=== PATIENT | male | born 1955 | race Caucasian/White ===

== ENCOUNTER 2018-01-26 03:29 | Inpatient (IN) | payer SELFPAY ==
--- NOTE | 2018-01-26 03:59 | ER Document Report ---
ED General - General Mode of Arrival: Ambulatory Information source: Patient <PATRIC BASHIR - Last Filed: 01/26/18 04:36> <IAN HERZOG - Last Filed: 01/26/18 06:21> - General Chief Complaint: Breathing Difficulty Stated Complaint: DIFFICULTY BREATHING Time Seen by Provider: 01/26/18 03:39 Notes: Patient is a 62 year old male presenting to the emergency department complaining of difficulty breathing worsening the last 3 days. Patient states he has had intermittent difficulty breathing for approximately 1 month but has worsened over the last 3 days. Patient states he can no longer sleep or be supine due to his trouble breathing. Patient denies any chest pain or recent coughs. Patient mentions being unable to walk long distances but contributes this to an episode of complete numbness he had in his left side approximately 1 year ago. He also mentions chronic edema in BLE. Patient states he does not follow up with a doctor and only takes a daily aspirin. (PATRIC BASHIR) - Related Data Allergies/Adverse Reactions: No Known Allergies Allergy (Verified 08/10/11 14:01) Past Medical History - General Information source: Patient - Social History Smoking Status: Never Smoker Cigarette use (# per day): No Chew tobacco use (# tins/day): No Frequency of alcohol use: None - quit in 2007 Family History: Reviewed & Not Pertinent - Immunizations Hx Diphtheria, Pertussis, Tetanus Vaccination: - unknown <KRYSTENPATRIC - Last Filed: 01/26/18 04:36> Review of Systems - Review of Systems Constitutional: No symptoms reported EENT: No symptoms reported Cardiovascular: No symptoms reported Respiratory: See HPI, Short of breath Gastrointestinal: No symptoms reported Genitourinary: No symptoms reported Male Genitourinary: No symptoms reported Musculoskeletal: See HPI Skin: No symptoms reported Hematologic/Lymphatic: No symptoms reported Neurological/Psychological: No symptoms reported -: Yes All other systems reviewed and negative <KRYSTEN,JOHANNEMOHINI - Last Filed: 01/26/18 04:36> Physical Exam - General General appearance: Appears well, Alert, Other - Hypertensive In distress: None - HEENT Head: Normocephalic, Atraumatic Eyes: Normal Conjunctiva: Normal Extraocular movements intact: Yes Pupils: PERRL Mucous membranes: Normal Neck: Normal - Respiratory Respiratory status: No respiratory distress, Tachypnea Chest status: Nontender Breath sounds: Wheezing Chest palpation: Normal - Cardiovascular Rhythm: Regular Heart sounds: Normal auscultation Murmur: No Friction rub: No Gallop: None auscultated - Abdominal Inspection: Normal Distension: No distension Bowel sounds: Normal Tenderness: Nontender Organomegaly: No organomegaly - Back Back: Normal - Extremities General upper extremity: Normal ROM General lower extremity: Normal ROM - Neurological Neuro grossly intact: Yes Cognition: Normal Orientation: AAOx4 Rabia Coma Scale Eye Opening: Spontaneous Rabia Coma Scale Verbal: Oriented [place] Coma Scale Motor: Obeys Commands Rabia Coma Scale Total: 15 Speech: Normal - Psychological Associated symptoms: Normal affect, Normal mood - Skin Skin Temperature: Warm Skin Moisture: Dry Skin Color: Normal <PATRIC BASHIR - Last Filed: 01/26/18 04:36> - Vital signs Vitals: Temp Pulse Resp BP Pulse Ox 97.4 F 102 H 24 H 175/115 H 100 01/26/18 03:35 01/26/18 03:35 01/26/18 03:35 01/26/18 03:35 01/26/18 03:35 Course - Laboratory Result Diagrams: 01/26/18 04:00 01/26/18 04:00 <PATRIC BASHIR - Last Filed: 01/26/18 04:36> - Laboratory Result Diagrams: 01/26/18 04:00 01/26/18 04:00 - Diagnostic Test Radiology reviewed: Reports reviewed - EKG Interpretation by Nd EKG shows normal: Sinus rhythm <IAN HERZOG - Last Filed: 01/26/18 06:21> - Re-evaluation Re-evalutation: 01/26/18 05:19 Patient is a 62-year-old male who comes in with increasing dyspnea with exertion , orthopnea. Patient has not seen a doctor in his adult life. He does not drink or smoke. Blood pressure is elevated. Patient with elevated BNP and given his symptoms, concern for new onset heart failure. CTA was done his d- dimer was elevated. Patient with no evidence for pulmonary embolus which was have mediastinal lymphadenopathy. Given patient's respiratory distress, dyspnea and hypoxia with exertion, he will be admitted to telemetry for further workup of what is likely heart failure, and will require echocardiogram. Patient is agreeable to this plan. Stable time of admission. Lasix has been ordered. (IAN HERZOG) - Vital Signs Vital signs: Temp Pulse Resp BP Pulse Ox 97.4 F 102 H 21 H 176/113 H 99 01/26/18 03:35 01/26/18 03:35 01/26/18 05:00 01/26/18 04:00 01/26/18 05:00 - Laboratory Laboratory results interpreted by me: 01/26/18 01/26/18 01/26/18 04:00 04:00 04:00 RDW 14.3 H D-Dimer 1.21 H Glucose 187 H POC Glucose Hemoglobin A1c % Lactic Acid NT-Pro-B Natriuret Pep LDL Cholesterol Direct Urine Protein Urine Glucose (UA) Urine Ketones 01/26/18 01/26/18 01/26/18 04:00 04:00 04:00 RDW D-Dimer Glucose POC Glucose Hemoglobin A1c % 8.1 H Lactic Acid 2.6 H NT-Pro-B Natriuret Pep 2610 H LDL Cholesterol Direct Urine Protein Urine Glucose (UA) Urine Ketones 01/26/18 01/26/18 01/26/18 04:00 04:36 05:15 RDW D-Dimer Glucose POC Glucose 194 H Hemoglobin A1c % Lactic Acid NT-Pro-B Natriuret Pep LDL Cholesterol Direct 134 H Urine Protein 30 H Urine Glucose (UA) 50 H Urine Ketones TRACE H Discharge <PATRIC BASHIR - Last Filed: 01/26/18 04:36> - Discharge Admitting Provider: [facility] Unit Admitted: Telemetry <IAN HERZOG - Last Filed: 01/26/18 06:21> - Discharge Clinical Impression: Mediastinal lymphadenopathy, Respiratory distress, Possible new onset heart failure Condition: Stable Disposition: ADMITTED INPATIENT Scribe Attestation: 01/26/18 06:20 I personally performed the services described in the documentation, reviewed and edited the documentation which was dictated to the scribe in my presence, and it accurately records my words and actions. (IAN HERZOG) Scribe Documentation - Scribe Written by Scribe:: Jorge Alberto Morel, 01/26/2018 04:08 acting as scribe for :: Sol <PATRIC BASHIR - Last Filed: 01/26/18 04:36>
[2018-01-26 04:13] LABS: VENOUS BLOOD BASE EXCESS -2.6 mmol/L; VENOUS BLOOD HCO3 21.7 mmol/L (20-32); VENOUS BLOOD PCO2 36.2 mmHg (35-63); VENOUS BLOOD PH 7.4 (7.30-7.42)
[2018-01-26 04:17] LABS: ABSOLUTE BASOPHILS # (AUTO) 0.1 10^3/uL (0.0-0.2); ABSOLUTE EOSINOPHILS # (AUTO) 0.1 10^3/uL (0.0-0.6); ABSOLUTE LYMPHOCYTES (AUTO) 2.4 10^3/uL (0.5-4.7); ABSOLUTE MONOCYTES (AUTO) 0.6 10^3/uL (0.1-1.4); ABSOLUTE NEUT (AUTO) 4.9 10^3/uL (1.7-8.2); BASOPHILS % (AUTO) 0.7 % (0-2); EOSINOPHILS % (AUTO) 0.9 % (0-6); HEMATOCRIT 43.2 % (37.9-51.0); HEMOGLOBIN 14.3 g/dL (13.5-17.0); LYMPHOCYTES % (AUTO) 30.2 % (13-45); MEAN CORPUSCULAR HEMOGLOBIN 28.7 pg (27.0-33.4); MEAN CORPUSCULAR HGB CONC 33.1 g/dL (32.0-36.0); MEAN CORPUSCULAR VOLUME 87 fl (80-97); MONOCYTES % (AUTO) 7.2 % (3-13); PLATELET COUNT 174 10^3/uL (150-450); RED BLOOD COUNT 4.98 10^6/uL (4.35-5.55); RED CELL DISTRIBUTION WIDTH 14.3 % (11.5-14.0); TOTAL CELLS COUNTED % (AUTO) 100 %; WHITE BLOOD COUNT 8.1 10^3/uL (4.0-10.5)
[2018-01-26 04:18] LABS: INTERNATIONAL RATION (INR) 1.07; PROTHROMBIN TIME 14.5 SEC (11.4-15.4)
[2018-01-26 04:20] LABS: D-DIMER 1.21 ug/mL (0.00-0.50)
--- NOTE | 2018-01-26 04:22 | RADIOLOGY REPORT (SQ) ---
EXAM DESCRIPTION: XR CHEST 2 VIEWS COMPLETED DATE/TME: 01/26/2018 03:43 CLINICAL HISTORY: 62 years, Male, sob COMPARISON: None. NUMBER OF VIEWS: Two TECHNIQUE: Two views of the chest LIMITATIONS: None. FINDINGS: Lungs are clear. The heart is enlarged. There is no pneumothorax or pleural effusion. There is no acute fracture IMPRESSION: No acute cardiopulmonary abnormality 2010 [email or web address]- All Rights Reserved
[2018-01-26 04:32] LABS: ALANINE AMINOTRANSFERASE 62 U/L (21-72); ALBUMIN 4.1 g/dL (3.5-5.0); ALKALINE PHOSPHATASE 67 U/L (38-126); ANION GAP 14 (5-19); ASPARTATE AMINO TRANSFERASE 56 U/L (17-59); BILIRUBIN,DIRECT 0.4 mg/dL (0.0-0.4); BLOOD UREA NITROGEN 14 mg/dL (7-20); CALCIUM 10.1 mg/dL (8.4-10.2); CARBON DIOXIDE 22 mmol/L (22-30); CHLORIDE 104 mmol/L (98-107); GLUCOSE 187 mg/dL (75-110); POTASSIUM 4.6 mmol/L (3.6-5.0); SODIUM 139.5 mmol/L (137-145); TOTAL PROTEIN 7.2 g/dL (6.3-8.2)
[2018-01-26 04:53] LABS: TROPONIN I 0.061 ng/mL
--- NOTE | 2018-01-26 05:14 | RADIOLOGY REPORT (SQ) ---
EXAM DESCRIPTION: CT CHEST ANGIOGRAPHY WITHOUT THEN WITH IV CONTRAST COMPLETED DATE/TME: 01/26/2018 04:24 CLINICAL HISTORY: 62 years Male, SOB, evaluate for PE Comparison: CR, same day. Technique: IV contrast. Coronal and sagittal reformat. 3d reconstruction. This exam was performed according to our departmental dose-optimization program, which includes automated exposure control, adjustment of the mA and/or kV according to patient size and/or use of iterative reconstruction technique.[facility]: Dose Right [facility]: CareDose [facility]: Dose Right [facility]: Teradose 4D [facility]: [employer] LIMITATIONS: None Findings: Moderate mediastinal lymphadenopathy. Cardiac enlargement. Punctate left nephrolithiasis. Small perinephric fat stranding. Atherosclerosis. Degenerative disc disease. Indeterminate exophytic right renal lesion measures 3.4 cm may indicate a hemorrhagic cyst or other neoplasm. Recommend multiphase contrast CT or MRI of the kidneys. No pulmonary embolus. No right ventricular strain. Clear lungs. Inferior neck, axillae, lungs, airway, heart, vasculature, upper abdomen, and musculoskeleton appear unremarkable. Impression: 1. Moderate mediastinal lymphadenopathy. Differential etiologies include infectious, inflammatory, and neoplastic processes. 2. Indeterminate exophytic right renal lesion measures 3.4 cm may indicate a hemorrhagic cyst or other neoplasm. Recommend multiphase contrast CT or MRI of the kidneys. 3. No pulmonary embolus. 4. Punctate left nephrolithiasis.
[2018-01-26] MEDS ORDERED: FUROSEMIDE INJ/PF 20 MG/2 ML SDV IV ONE (05:15)
[2018-01-26] MEDS ORDERED: LACTULOSE SYRUP 20 GM/30 ML UDCUP PO ONE (05:19)
[2018-01-26] MEDS ORDERED: HYDRALAZINE HCL INJ/PF 20 MG/1 ML SDV IV PRN (05:19)
[2018-01-26] MEDS ORDERED: DEXTROSE 50%-WATER 25 GM/50 ML DISP.SYRIN IV PRN ×2 (05:21)
[2018-01-26] MEDS ORDERED: GLUCAGON,HUMAN RECOMB 1 MG INJ IM PRN (05:21)
[2018-01-26] MEDS ORDERED: DEXTROSE 40% GEL 15 GM TUBE PO PRN ×2 (05:21)
[2018-01-26] MEDS ORDERED: MAGNESIUM HYDROXIDE SUSP 30 ML UDCUP PO PRN (05:21)
[2018-01-26] MEDS ORDERED: ENALAPRILAT DIHYDRATE INJ/PF 1.25 MG/1 ML SDV IV PRN (05:21)
[2018-01-26] MEDS ORDERED: ACETAMINOPHEN 325 MG TABLET PO PRN (05:21)
[2018-01-26] MEDS ORDERED: MAG HYDROX/AL HYDROX/SIMETH SUSP 30 ML UDCUP PO PRN (05:21)
[2018-01-26 05:38] LABS: APPEARANCE,URINE CLEAR; BILIRUBIN,URINE NEGATIVE (NEGATIVE); COLOR,URINE YELLOW; GLUCOSE, URINE 50 mg/dL (NEGATIVE); KETONES,URINE TRACE mg/dL (NEGATIVE); LEUKOCYTE ESTERASE,URINE NEGATIVE (NEGATIVE); NITRITE,URINE NEGATIVE (NEGATIVE); PROTEIN,URINE 30 mg/dL (NEGATIVE); URINE SPECIFIC GRAVITY 1.056; UROBILINOGEN,URINE NEGATIVE mg/dL (<2.0)
[2018-01-26 05:42] LABS: CREATINE KINASE 92 U/L (55-170); TRIGLYCERIDES 131 mg/dL (<150)
[2018-01-26 05:54] LABS: DIRECT LDL 134 mg/dL (<100)
[2018-01-26] MEDS ORDERED: NITROGLYCERIN 5 MG (0.2 MG/HR) PATCH.TD24 TD ONE (06:00)
--- NOTE | 2018-01-26 06:14 | PDOC H&P ---
History of Present Illness Admission Date/PCP: 01/26/18 05:31 Patient complains of: Shortness of breath and fatigue History of Present Illness: SARA HOLLIDAY is a 62 year old male without significant past medical history who has not seen a doctor for many years. Presents with approximately 2-week history of increasing shortness of breath and fatigue developing exertional dyspnea prompting evaluation emergency room where he is found to have hypertensive emergency, hyperglycemia, prolonged QT interval and hyperglycemia. He denies chest pain, palpitations but admits to nausea, dyspepsia and abdominal bloating. He denies outpatient medications with exception to intermittent aspirin. Past Medical History Medical History: None Past Surgical History Past Surgical History: Reports: None Social History Information Source: Patient Smoking Status: Never Smoker Frequency of Alcohol Use: None Drugs: None - Advance Directive Resuscitation Status: Full Code Family History Family History: None - Unknown to patient Parental Family History Reviewed: Yes - Unknown to patient Children Family History Reviewed: Yes - Unknown to patient Sibling(s) Family History Reviewed.: Yes - Unknown to patient Medication/Allergy Home Medications: No Home Medications 1 08/10/11 Allergies/Adverse Reactions: No Known Allergies Allergy (Verified 08/10/11 14:01) Review of Systems Constitutional: PRESENT: as per HPI, fatigue, weakness. ABSENT: fever(s), night sweats Eyes: ABSENT: visual disturbances Ears: ABSENT: hearing changes Cardiovascular: PRESENT: as per HPI, dyspnea on exertion. ABSENT: chest pain, edema, orthropnea, palpitations Respiratory: PRESENT: as per HPI, cough - Nonproductive, dyspnea. ABSENT: sputum Gastrointestinal: PRESENT: as per HPI, abdominal pain, bloating, nausea. ABSENT : vomiting Genitourinary: PRESENT: as per HPI, nocturia. ABSENT: dysuria, hematuria Musculoskeletal: ABSENT: joint swelling Integumentary: ABSENT: rash, wounds Neurological: ABSENT: abnormal gait, abnormal speech, confusion, dizziness, focal weakness, syncope Psychiatric: ABSENT: anxiety, depression, homidical ideation, suicidal ideation Endocrine: PRESENT: as per HPI, polydipsia, polyphagia, polyuria. ABSENT: cold intolerance Hematologic/Lymphatic: ABSENT: easy bleeding, easy bruising Physical Exam Vital Signs: Temp Pulse Resp BP Pulse Ox 97.4 F 102 H 21 H 176/113 H 99 01/26/18 03:35 01/26/18 03:35 01/26/18 05:00 01/26/18 04:00 01/26/18 05:00 General appearance: PRESENT: cooperative, mild distress, obese Head exam: PRESENT: atraumatic, normocephalic Eye exam: PRESENT: conjunctiva pink, EOMI, PERRLA. ABSENT: scleral icterus Ear exam: PRESENT: normal external ear exam Mouth exam: PRESENT: moist, tongue midline Neck exam: PRESENT: full ROM, JVD. ABSENT: lymphadenopathy Respiratory exam: PRESENT: accessory muscle use, crackles, tachypnea. ABSENT: chest wall tenderness, clear to auscultation moriah Cardiovascular exam: PRESENT: gallop, +S1, +S2, systolic murmur, tachycardia Pulses: PRESENT: normal dorsalis pedis pul Vascular exam: PRESENT: normal capillary refill GI/Abdominal exam: PRESENT: distended, hypoactive bowel sounds, normal bowel sounds, soft. ABSENT: firm, guarding, mass, organolmegaly, rebound, tenderness Rectal exam: PRESENT: deferred Extremities exam: PRESENT: full ROM. ABSENT: calf tenderness, clubbing, pedal edema Neurological exam: PRESENT: alert, awake, oriented to person, oriented to place , oriented to time, oriented to situation, CN II-XII grossly intact. ABSENT: motor sensory deficit Psychiatric exam: PRESENT: appropriate affect, normal mood. ABSENT: homicidal ideation, suicidal ideation Skin exam: PRESENT: dry, intact, warm. ABSENT: cyanosis, rash Results Impressions: Chest X-Ray 01/26/18 03:43 IMPRESSION: No acute cardiopulmonary abnormality 2010 [facility] [employer]- All Rights Reserved Assessment & Plan - Diagnosis (1) Hypertensive emergency Is this a current diagnosis for this admission?: Yes Plan: Nitrate, hydralazine and diuresis. (2) Congestive heart failure Is this a current diagnosis for this admission?: Yes Plan: Likely diastolic failure, CHF care set, (3) Long QT interval Is this a current diagnosis for this admission?: Yes Plan: Unfortunately unable to treat gastroparesis with erythromycin or Reglan. Consider magnesium (4) Newly diagnosed diabetes Is this a current diagnosis for this admission?: Yes Plan: Insulin, education, follow-up A1c (5) Gastroparesis Is this a current diagnosis for this admission?: Yes Plan: Avoid QT prolonging agents, hyperglycemic control, dietary modification with dietitian consult (6) Mediastinal lymphadenopathy Is this a current diagnosis for this admission?: Yes Plan: Repeat CT 3-6 months. - Time Time Spent: 50 to 70 Minutes - Inpatient Certification Medical Necessity: Need Close Monitoring Due to Risk of Patient Decompensation
[2018-01-26] MEDS: HEPARIN SOD (PORCINE) 5,000 UNIT/ML 1 ML SYRINGE SUBCUT SCH ×3 (06:44→21:19)
[2018-01-26] MEDS ORDERED: ONDANSETRON HCL INJ/PF 4 MG/2 ML SDV IV PRN (08:18)
[2018-01-26] MEDS ORDERED: ERYTHROMYCIN BASE 250 MG TABLET PO SCH (10:00)
[2018-01-26] MEDS: DOCUSATE SODIUM 100 MG CAPSULE PO SCH (10:58)
[2018-01-26] MEDS: FUROSEMIDE INJ/PF 20 MG/2 ML SDV IV SCH ×2 (10:58→21:19)
[2018-01-26] MEDS: POTASSIUM CHLORIDE 10 MEQ CAPSULE.ER PO SCH (10:58)
[2018-01-26] MEDS: ASPIRIN 81 MG TABLET, ENT COATED PO SCH (10:59)
[2018-01-26 11:44] LABS: CREATINE KINASE MB 2.05 ng/mL (<4.55); TROPONIN I 0.047 ng/mL
[2018-01-26] MEDS: LISINOPRIL 10 MG TABLET PO SCH (12:45)
[2018-01-26] MEDS: CARVEDILOL 6.25 MG TABLET PO SCH ×2 (12:45→21:19)
[2018-01-26 16:34] LABS: CREATINE KINASE MB 1.94 ng/mL (<4.55); TROPONIN I 0.073 ng/mL
[2018-01-26] MEDS: INSULIN LISPRO 100 UNIT/ML 3 ML VIAL SUBCUT PRN (18:12)
--- NOTE | 2018-01-26 20:22 | EKG REPORT ---
SEVERITY:- ABNORMAL ECG - SINUS RHYTHM NONSPECIFIC INTRAVENTRICULAR CONDUCTION DELAY PROBABLE LEFT VENTRICULAR HYPERTROPHY : Confirmed by: Jessica Guajardo MD 26-Jan-2018 20:21:50
[2018-01-27 05:51] LABS: ABSOLUTE BASOPHILS # (AUTO) 0.1 10^3/uL (0.0-0.2); ABSOLUTE EOSINOPHILS # (AUTO) 0.1 10^3/uL (0.0-0.6); ABSOLUTE LYMPHOCYTES (AUTO) 2.8 10^3/uL (0.5-4.7); ABSOLUTE MONOCYTES (AUTO) 0.9 10^3/uL (0.1-1.4); BASOPHILS % (AUTO) 0.9 % (0-2); EOSINOPHILS % (AUTO) 1.3 % (0-6); HEMATOCRIT 40.7 % (37.9-51.0); HEMOGLOBIN 13.6 g/dL (13.5-17.0); LYMPHOCYTES % (AUTO) 31.3 % (13-45); MEAN CORPUSCULAR HEMOGLOBIN 28.6 pg (27.0-33.4); MEAN CORPUSCULAR HGB CONC 33.5 g/dL (32.0-36.0); MEAN CORPUSCULAR VOLUME 85 fl (80-97); MONOCYTES % (AUTO) 10.2 % (3-13); PLATELET COUNT 155 10^3/uL (150-450); RED BLOOD COUNT 4.76 10^6/uL (4.35-5.55); RED CELL DISTRIBUTION WIDTH 14.2 % (11.5-14.0); SEGMENTED NEUTROPHILS % (AUTO) 56.3 % (42-78); TOTAL CELLS COUNTED % (AUTO) 100 %; WHITE BLOOD COUNT 8.8 10^3/uL (4.0-10.5)
[2018-01-27 06:10] LABS: ANION GAP 12 (5-19); BLOOD UREA NITROGEN 27 mg/dL (7-20); CALCIUM 9.5 mg/dL (8.4-10.2); CARBON DIOXIDE 25 mmol/L (22-30); CHLORIDE 101 mmol/L (98-107); GLUCOSE 139 mg/dL (75-110); POTASSIUM 4.2 mmol/L (3.6-5.0); SODIUM 137.8 mmol/L (137-145)
[2018-01-27] MEDS: HEPARIN SOD (PORCINE) 5,000 UNIT/ML 1 ML SYRINGE SUBCUT SCH ×3 (06:17→21:50)
[2018-01-27] MEDS ORDERED: RINGERS SOLUTION,LACTATED 1,000 ML IV PRN (09:34)
--- NOTE | 2018-01-27 09:48 | PDOC PROGRESS REPORT ---
Subjective Progress Note for:: 01/27/18 Subjective:: SARA HOLLIDAY is a 62 year old male without significant past medical history who has not seen a doctor for many years. Presents with approximately 2-week history of increasing shortness of breath and fatigue developing exertional dyspnea prompting evaluation emergency room where he is found to have hypertensive emergency, hyperglycemia, prolonged QT interval and hyperglycemia. Patient's hemoglobin A1c is 8.1 his blood pressures control his heart failure has resolved. CT of the chest showed lymphadenopathy with a questionable renal lesion a recommended follow-up CT will be done today. Reason For Visit: MEDIASTINAL LYMPHADENOPTHY, RESPIRATORY DISTRESS Physical Exam Vital Signs: Temp Pulse Resp BP Pulse Ox 98.3 F 70 18 117/79 99 01/27/18 08:12 01/27/18 08:12 01/27/18 08:12 01/27/18 08:12 01/27/18 08:12 Intake & Output 01/26/18 01/27/18 01/28/18 06:59 06:59 06:59 Intake Total 341 Output Total 600 Balance -600 341 Weight 100.7 kg General appearance: PRESENT: no acute distress, well-developed, well-nourished Head exam: PRESENT: atraumatic, normocephalic Eye exam: PRESENT: conjunctiva pink, EOMI, PERRLA. ABSENT: scleral icterus Neck exam: ABSENT: carotid bruit, JVD, lymphadenopathy, thyromegaly Respiratory exam: PRESENT: clear to auscultation moriah. ABSENT: rales, rhonchi, wheezes Cardiovascular exam: PRESENT: RRR. ABSENT: diastolic murmur, rubs, systolic murmur Pulses: PRESENT: normal dorsalis pedis pul Vascular exam: PRESENT: normal capillary refill GI/Abdominal exam: PRESENT: normal bowel sounds, soft. ABSENT: distended, guarding, mass, organolmegaly, rebound, tenderness Rectal exam: PRESENT: deferred Extremities exam: PRESENT: full ROM. ABSENT: calf tenderness, clubbing, pedal edema Neurological exam: PRESENT: alert, awake, oriented to person, oriented to place , oriented to time, oriented to situation, CN II-XII grossly intact. ABSENT: motor sensory deficit Psychiatric exam: PRESENT: appropriate affect, normal mood. ABSENT: homicidal ideation, suicidal ideation Skin exam: PRESENT: dry, intact, warm. ABSENT: cyanosis, rash Results Laboratory Results: 01/27/18 05:40 01/27/18 05:40 01/27/18 01/27/18 05:40 05:40 WBC 8.8 RBC 4.76 Hgb 13.6 Hct 40.7 MCV 85 MCH 28.6 MCHC 33.5 RDW 14.2 H Plt Count 155 Seg Neutrophils % 56.3 Lymphocytes % 31.3 Monocytes % 10.2 Eosinophils % 1.3 Basophils % 0.9 Absolute Neutrophils 5.0 Absolute Lymphocytes 2.8 Absolute Monocytes 0.9 Absolute Eosinophils 0.1 Absolute Basophils 0.1 Sodium 137.8 Potassium 4.2 Chloride 101 Carbon Dioxide 25 Anion Gap 12 BUN 27 H Creatinine 1.20 Est GFR ( Amer) > 60 Est GFR (Non-Af Amer) > 60 Glucose 139 H Calcium 9.5 01/26/18 01/26/18 01/26/18 10:07 10:07 15:50 Creatine Kinase 75 63 CK-MB (CK-2) 2.05 Troponin I 0.047 01/26/18 15:50 Creatine Kinase CK-MB (CK-2) 1.94 Troponin I 0.073 Impressions: Chest X-Ray 01/26/18 03:43 IMPRESSION: No acute cardiopulmonary abnormality 2010 [employer]- All Rights Reserved Assessment & Plan - Diagnosis (1) Congestive heart failure Is this a current diagnosis for this admission?: Yes Plan: Resolved. Change IV Lasix to Lasix 20 p.o. daily continue other medications unchanged. (2) Obesity (BMI 30-39.9) Is this a current diagnosis for this admission?: Yes Plan: Diabetes education and weight reduction recommended (3) Renal lesion Is this a current diagnosis for this admission?: Yes Plan: Right renal lesion 3.4 cm indeterminant will obtain CT as recommended by radiology report (4) Hypertensive emergency Is this a current diagnosis for this admission?: Yes Plan: Patient blood pressure improved continue current medications monitor and adjust going forward. (5) Mediastinal lymphadenopathy Is this a current diagnosis for this admission?: Yes Plan: Will obtain CT of the abdomen and pelvis to evaluate for lymphadenopathy. Will prophylax patient with Mucomyst and give gentle hydration of 75 mL's of lactated Ringer's prior to CT as he is already received contrast 48 hours ago. Creatinine 1.2 BUN 42 today IV Lasix has been discontinued. (6) Newly diagnosed diabetes Is this a current diagnosis for this admission?: Yes Plan: Hemoglobin A1c 8.1. Will initiate metformin on discharge patient receiving contrast cannot initiate for 48 hours. Gastroparesis may be related to diabetes but as diagnosis is new to patient may require formal workup after patient has good glycemic control - Time Time Spent with patient: 25-34 minutes Anticipated discharge: Home Within: within 24 hours
[2018-01-27] MEDS: LISINOPRIL 10 MG TABLET PO SCH (10:38)
[2018-01-27] MEDS: POTASSIUM CHLORIDE 10 MEQ CAPSULE.ER PO SCH (10:38)
[2018-01-27] MEDS: FUROSEMIDE 20 MG TABLET PO SCH (10:38)
[2018-01-27] MEDS: CARVEDILOL 6.25 MG TABLET PO SCH ×2 (10:38→21:49)
[2018-01-27] MEDS: ASPIRIN 81 MG TABLET, ENT COATED PO SCH (10:38)
[2018-01-27] MEDS: DOCUSATE SODIUM 100 MG CAPSULE PO SCH (10:38)
[2018-01-27] MEDS: NITROGLYCERIN 5 MG (0.2 MG/HR) PATCH.TD24 TD SCH (10:39)
[2018-01-27] MEDS: ACETYLCYSTEINE 20% SOLN 800 MG/4 ML VIAL.NEB PO SCH ×2 (11:56→21:48)
--- NOTE | 2018-01-27 12:40 | RADIOLOGY REPORT (SQ) ---
EXAM DESCRIPTION: CT ABD/PELVIS WITH IV ORAL COMPLETED DATE/TIME: 01/27/2018 12:22 pm REASON FOR STUDY: Mediastinal lymphadenopathy renal lesion on CT COMPARISON: None. TECHNIQUE: CT scan of the abdomen and pelvis performed with intravenous and oral contrast using bobby eric scanning technique with dynamic intravenous contrast injection. Images reviewed with lung, soft t issue, and bone windows. Reconstructed coronal and sagittal MPR images reviewed. Delayed images for e valuation of the urinary system also acquired. All images stored on PACS. All CT scanners at this facility use dose modulation, iterative reconstruction, and/or weight based d osing when appropriate to reduce radiation dose to as low as reasonably achievable (ALARA). [facility]: Dose Right [facility]: CareDose [facility]: Dose Right [facility]: Teradose 4D [facility]: [employer] CONTRAST TYPE AND DOSE: contrast/concentration: Isovue 350.00 mg/ml; Total Contrast Delivered: 100.0 ml; Total Saline Delivered: 72.0 ml RENAL FUNCTION: Creatinine 1.2 RADIATION DOSE: CT Rad equipment meets quality standard of care and radiation dose reduction techniq ues were employed. CTDIvol: 18.1 - 19.6 mGy. DLP: 1943 mGy-cm.. LIMITATIONS: None. FINDINGS: LOWER CHEST: Please see yesterday's dictation. LIVER: Slight hepatic vein reflux and distension of the IVC. This may reflect a degree of cardiac dy sfunction. SPLEEN: Normal size. No focal lesions. PANCREAS: No masses. No significant calcifications. No adjacent inflammation or peripancreatic fluid collections. Pancreatic duct not dilated. GALLBLADDER: No identified stones by CT criteria. No inflammatory changes to suggest cholecystitis. ADRENAL GLANDS: No significant masses or asymmetry. RIGHT KIDNEY AND URETER: Small anterior upper pole exophytic simple appearing cyst. No enhancing les ions or urinary obstruction evident. LEFT KIDNEY AND URETER: No solid masses. No significant calcification. No hydronephrosis or hydrouret er. AORTA AND VESSELS: Atherosclerotic aorta common normal caliber. No dissection. Generally patent valentine or arterial branches. Soft plaque narrows the superior mesenteric artery, likely 80%. No venous maverick t detected. RETROPERITONEUM: No retroperitoneal adenopathy, hemorrhage or masses. BOWEL AND PERITONEAL CAVITY: No obstruction. No visualized masses. No free fluid. No inflammatory ch anges or thickening of bowel wall. APPENDIX: Normal. PELVIS: No significant masses. Normal bladder. No free fluid. ABDOMINAL WALL: No bowel containing hernia or mass. BONES: No significant or acute findings. OTHER: No other significant finding. IMPRESSION: 1. No acute or suspicious abdominopelvic abnormality. No worrisome renal mass. 2. 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 Other mesenteric arteries are patent. 3. Other findings as noted. TECHNICAL DOCUMENTATION: JOB ID: [id number] Quality ID # [id number]: Final reports with documentation of one or more dose reduction techniques (e.g., Au tomated exposure control, adjustment of the mA and/or kV according to patient size, use of iterative reconstruction technique) 2010 [employer]- All Rights Reserved Reading location - IP/workstation name: [email or web address]
[2018-01-27] MEDS: INSULIN LISPRO 100 UNIT/ML 3 ML VIAL SUBCUT PRN (13:27)
[2018-01-28] MEDS: HEPARIN SOD (PORCINE) 5,000 UNIT/ML 1 ML SYRINGE SUBCUT SCH ×2 (05:57→13:10)
[2018-01-28 06:35] LABS: ANION GAP 9 (5-19); BLOOD UREA NITROGEN 24 mg/dL (7-20); CALCIUM 8.9 mg/dL (8.4-10.2); CARBON DIOXIDE 27 mmol/L (22-30); CHLORIDE 100 mmol/L (98-107); GLUCOSE 117 mg/dL (75-110); POTASSIUM 4.3 mmol/L (3.6-5.0); SODIUM 136.3 mmol/L (137-145)
[2018-01-28] MEDS: CARVEDILOL 6.25 MG TABLET PO SCH (09:00)
[2018-01-28] MEDS: POTASSIUM CHLORIDE 10 MEQ CAPSULE.ER PO SCH (09:00)
[2018-01-28] MEDS: NITROGLYCERIN 5 MG (0.2 MG/HR) PATCH.TD24 TD SCH (09:00)
[2018-01-28] MEDS: ASPIRIN 81 MG TABLET, ENT COATED PO SCH (09:00)
[2018-01-28] MEDS: DOCUSATE SODIUM 100 MG CAPSULE PO SCH (09:00)
[2018-01-28] MEDS: LISINOPRIL 10 MG TABLET PO SCH (09:01)
[2018-01-28] MEDS: FUROSEMIDE 20 MG TABLET PO SCH (09:01)
[2018-01-28 12:27] VITALS: BP 122/82
--- NOTE | 2018-01-28 15:19 | PDOC DISCHARGE SUMMARY ---
General - Admit/Disc Date/PCP Admission Date/Primary Care Provider: 01/26/18 05:31 Discharge Date: 01/28/18 - Discharge Diagnosis (1) Congestive heart failure Is this a current diagnosis for this admission?: Yes (2) Obesity (BMI 30-39.9) Is this a current diagnosis for this admission?: Yes (3) Renal lesion Is this a current diagnosis for this admission?: Yes Summary: No lesion on follow-up CAT scan of the abdomen and pelvis (4) Hypertensive emergency Is this a current diagnosis for this admission?: Yes (5) Mediastinal lymphadenopathy Is this a current diagnosis for this admission?: Yes Summary: Patient informed and recommended to have follow-up CAT scan in 2-3 months (6) Newly diagnosed diabetes Is this a current diagnosis for this admission?: Yes Summary: Hemoglobin A1c 8.1 given diabetes education and discharged on metformin - Additional Information Resuscitation Status: Full Code Discharge Diet: Cardiac, Diabetic Discharge Activity: Activity As Tolerated, Weigh Daily Prescriptions: Carvedilol [Coreg 6.25 mg Tablet] 6.25 mg PO Q12 #60 tablet Furosemide [Lasix 20 mg Tablet] 20 mg PO DAILY #30 tablet Lisinopril [Prinivil 10 mg Tablet] 10 mg PO DAILY #30 tablet Metformin HCl [Glucophage 500 mg Tablet] 500 mg PO BIDACBS #60 tab Potassium Chloride [Klor-Con 10 Meq Capsule ER] 20 meq PO DAILY #30 capsule.er Home Medications: Aspirin [Adult Low Dose Aspirin EC] 162 mg PO DAILY 01/26/18 Carvedilol [Coreg 6.25 mg Tablet] 6.25 mg PO Q12 #60 tablet 01/28/18 Furosemide [Lasix 20 mg Tablet] 20 mg PO DAILY #30 tablet 01/28/18 Lisinopril [Prinivil 10 mg Tablet] 10 mg PO DAILY #30 tablet 01/28/18 Metformin HCl [Glucophage 500 mg Tablet] 500 mg PO BIDACBS #60 tab 01/28/18 Potassium Chloride [Klor-Con 10 Meq Capsule ER] 20 meq PO DAILY #30 capsule.er 01/28/18 History of Present Illness Patient complains of: Shortness of breath History of Present Illness: SARA HOLLIDAY is a 62 year old male without significant past medical history who has not seen a doctor for many years. Presents with approximately 2-week history of increasing shortness of breath and fatigue developing exertional dyspnea prompting evaluation emergency room where he is found to have hypertensive emergency, hyperglycemia, prolonged QT interval and hyperglycemia. He denies chest pain, palpitations but admits to nausea, dyspepsia and abdominal bloating. He denies outpatient medications with exception to intermittent aspirin Hospital Course Hospital Course: Patient was admitted to a telemetry bed initiated on IV Lasix.'s of urgency and the heart failure lisinopril 10 mg was added and Coreg 6.25 mg twice daily. Patient improved over the next 24 hours diuresed well and his heart failure resolved. Because of the lymphadenopathy in the mediastinum noted on CTA which was negative for PE a CT of the abdomen and pelvis was done 48 hours later after Mucomyst was given for renal protection. The CT of the abdomen pelvis showed no lymphadenopathy the questionable renal lesion in the right kidney was ruled out. Echocardiogram was performed patient appears to have a depressed EF official reading pending at the time of this dictation however patient was anxious to be discharged and was given a follow-up appointment with Dr. Guajardo in his office. Physical Exam Vital Signs: Temp Pulse Resp BP Pulse Ox 98.4 F 69 17 122/82 99 01/28/18 15:03 01/28/18 15:03 01/28/18 15:03 01/28/18 15:03 01/28/18 15:03 Intake & Output 01/27/18 01/28/18 01/29/18 06:59 06:59 06:59 Intake Total 341 2052 Balance 341 2052 Weight 100.7 kg 102 kg General appearance: PRESENT: no acute distress Eye exam: PRESENT: conjunctiva pink, EOMI, PERRLA. ABSENT: scleral icterus Neck exam: ABSENT: carotid bruit, JVD, lymphadenopathy, thyromegaly Respiratory exam: PRESENT: clear to auscultation moriah. ABSENT: rales, rhonchi, wheezes Cardiovascular exam: PRESENT: RRR. ABSENT: diastolic murmur, rubs, systolic murmur GI/Abdominal exam: PRESENT: normal bowel sounds, soft. ABSENT: distended, guarding, mass, organolmegaly, rebound, tenderness Extremities exam: PRESENT: full ROM. ABSENT: calf tenderness, clubbing, pedal edema Results Laboratory Results: 01/27/18 05:40 01/28/18 05:10 01/28/18 05:10 Sodium 136.3 L Potassium 4.3 Chloride 100 Carbon Dioxide 27 Anion Gap 9 BUN 24 H Creatinine 1.18 Est GFR ( Amer) > 60 Est GFR (Non-Af Amer) > 60 Glucose 117 H Calcium 8.9 01/26/18 01/26/18 01/26/18 10:07 10:07 15:50 Creatine Kinase 75 63 CK-MB (CK-2) 2.05 Troponin I 0.047 01/26/18 15:50 Creatine Kinase CK-MB (CK-2) 1.94 Troponin I 0.073 Impressions: Chest X-Ray 01/26/18 03:43 IMPRESSION: No acute cardiopulmonary abnormality 2010 [employer]- All Rights Reserved Abdomen/Pelvis CT 01/27/18 00:00 IMPRESSION: 1. No acute or suspicious abdominopelvic abnormality. No worrisome renal mass. 2. 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 Other mesenteric arteries are patent. 3. Other findings as noted. Qualifiers - * PATIENT BEING DISCHARGED WITH ANY OF THE FOLLOWING DIAGNOSIS: Heart Failure HF Pt being discharged on ACEI for LVEF less than 40%?: Yes HF Pt being discharged on ARBS for LVEF less than 40%?: No Reason(s) for not prescribing ARBS:: Medical Contraindication HF Pt with Afib discharged with Warfarin?: No Reason(s) for not prescribing Warfarin:: Not indicated HF Pt discharged on evidence-based Beta Casandra:: Yes Plan Time Spent: Greater than 30 Minutes
--- NOTE | 2018-01-28 19:36 | XCELERA REPORT ---
[address] [address] Transthoracic Echocardiogram Report Name: SARA HOLLIDAY Age: 62 yrs Gender: Male : 1955 Patient Status: Inpatient Patient Location: [address] [place] [address] Study Date: 01/28/2018 09:07 AM Procedure: A two-dimensional transthoracic echocardiogram with color flow and Doppler was performed. The study was technically difficult with many images being suboptimal in quality. Reason For Study: diastolic failure? History: CHF. Ordering Physician: RAMSES CHIN Performed By: Ginny Diaz Interpretation Summary The left ventricle is moderately dilated. There is normal left ventricular wall thickness. LV EF is 25% to 30% Left ventricular systolic function is severely reduced. There is severe global hypokinesis of the left ventricle. There is no thrombus. There is no ventricular septal defect visualized. The right ventricle is not well visualized secondary to technical limitations Right atrium not well visualized secondary to technical limitations The left atrium is moderately dilated. There is no evidence of mitral valve prolapse. There is no mitral valve stenosis. There is a mild amount of mitral regurgitation There is no aortic valvular vegetation. There is no aortic valve stenosis There is no LVOT obstruction. No aortic regurgitation is present. There is no tricuspid stenosis. There is a mild amount of tricuspid regurgitation No significant pulmonary hypertension.RVSP is 28 to 3 mm of Hg , with RA mean of 5 to 10. The aortic root is normal size. The inferior vena cava appeared normal and decreased > 50% with respiration (RAP 5-10 mmHg) There is no pulmonic valvular stenosis. There is a trace amount of pulmonic regurgitation There is no pericardial effusion. MMode/2D Measurements & Calculations RVDd: 4.1 cm LVIDd: 7.3 cm FS: 11.3 % Ao root diam: 3.3 cm IVSd: 0.80 cm LVIDs: 6.5 cm EDV(Teich): 281.0 ml Ao root area: 8.7 cm2 LVPWd: 0.96 cm ESV(Teich): 214.1 ml EF(Teich): 23.8 % Doppler Measurements & Calculations MV E max jey: MV dec slope: Ao V2 max: LV V1 max P.0 cm/sec 93.7 cm/sec 2.8 mmHg MV A max jey: 927.6 cm/sec2 Ao max PG: LV V1 max: 36.5 cm/sec MV dec time: 0.10 sec 3.5 mmHg 84.1 cm/sec MV E/A: 2.5 PI max jey: TR max jey: 225.2 cm/sec 241.3 cm/sec PI max P.3 mmHg TR max P.3 mmHg PI dec slope: 185.8 cm/sec2 Left Ventricle The left ventricle is moderately dilated. There is normal left ventricular wall thickness. LV EF is 25% to 30%. Left ventricular systolic function is severely reduced. There is severe global hypokinesis of the left ventricle. There is no thrombus. There is no ventricular septal defect visualized. Right Ventricle The right ventricle is not well visualized secondary to technical limitations. Atria Right atrium not well visualized secondary to technical limitations. The left atrium is moderately dilated. The interatrial septum is intact with no evidence for an atrial septal defect. Mitral Valve There is no evidence of mitral valve prolapse. There is no vegetation seen on the mitral valve. There is no mitral valve stenosis. There is a mild amount of mitral regurgitation. Aortic Valve There is no aortic valvular vegetation. There is no aortic valve stenosis. There is no LVOT obstruction. No aortic regurgitation is present. Tricuspid Valve There is no tricuspid stenosis. There is a mild amount of tricuspid regurgitation. No significant pulmonary hypertension.RVSP is 28 to 3 mm of Hg , with RA mean of 5 to 10. Pulmonic Valve There is no pulmonic valvular stenosis. There is a trace amount of pulmonic regurgitation. Great Vessels The aortic root is normal size. The inferior vena cava appeared normal and decreased > 50% with respiration (RAP 5-10 mmHg). Effusions There is no pericardial effusion. : RAMSES CHIN > Jessica Gujaardo
[2018-01-29] MEDS ORDERED: ASPIRIN 81 MG TABLET, ENT COATED PO SCH (10:00)
[2018-01-29] MEDS ORDERED: POTASSIUM CHLORIDE 10 MEQ CAPSULE.ER PO SCH (10:00)
== END 2018-01-28 16:16 | disposition home or self-care (01) | DRG 305 ==
LOC: ER 03:29 → EH 05:31 → 5 09:20
PROVIDERS: ADMIT Internal Medicine; ATTEND Internal Medicine
DX: I16.0 Hypertensive urgency (principal); I50.30 Unspecified diastolic (congestive) heart failure; I11.0 Hypertensive heart disease with heart failure; I45.81 Long QT syndrome; K31.84 Gastroparesis; R59.1 Generalized enlarged lymph nodes; E11.8 Type 2 diabetes mellitus with unspecified complications; N28.9 Disorder of kidney and ureter, unspecified
CPT/HCPCS: 36415; 71046; 71275; 74177; 80048; 80053; 80061; 81001; 82550; 82553; 82803; 82962; 83036; 83605; 83880; 84443; 84484; 85025; 85379; 85610; 87040; 87086; 93005; 93010; 93306; 99285; J0360; J1644; J1815; J1940; J3490

== ENCOUNTER 2018-12-29 03:49 | Emergency (ER) | payer OTHER ==
[2018-12-29] MEDS ORDERED: ASPIRIN 81 MG TABLET, CHEWABLE PO ONE (04:15)
[2018-12-29 04:36] LABS: ABSOLUTE BASOPHILS # (AUTO) 0.1 10^3/uL (0.0-0.2); ABSOLUTE EOSINOPHILS # (AUTO) 0.1 10^3/uL (0.0-0.6); ABSOLUTE LYMPHOCYTES (AUTO) 2.3 10^3/uL (0.5-4.7); ABSOLUTE MONOCYTES (AUTO) 0.5 10^3/uL (0.1-1.4); ABSOLUTE NEUT (AUTO) 3.7 10^3/uL (1.7-8.2); EOSINOPHILS % (AUTO) 1.1 % (0-6); HEMATOCRIT 41.2 % (37.9-51.0); HEMOGLOBIN 13.5 g/dL (13.5-17.0); MEAN CORPUSCULAR HEMOGLOBIN 28.8 pg (27.0-33.4); MEAN CORPUSCULAR HGB CONC 32.7 g/dL (32.0-36.0); MEAN CORPUSCULAR VOLUME 88 fl (80-97); MONOCYTES % (AUTO) 7.5 % (3-13); PLATELET COUNT 152 10^3/uL (150-450); RED BLOOD COUNT 4.67 10^6/uL (4.35-5.55); RED CELL DISTRIBUTION WIDTH 14.6 % (11.5-14.0); SEGMENTED NEUTROPHILS % (AUTO) 55.4 % (42-78); TOTAL CELLS COUNTED % (AUTO) 100 %; WHITE BLOOD COUNT 6.7 10^3/uL (4.0-10.5)
[2018-12-29 04:43] LABS: INTERNATIONAL RATION (INR) 1.22; PROTHROMBIN TIME 15.5 SEC (11.4-15.4)
[2018-12-29 04:52] LABS: ALKALINE PHOSPHATASE 61 U/L (38-126); ANION GAP 14 (5-19); ASPARTATE AMINO TRANSFERASE 52 U/L (17-59); BILIRUBIN,DIRECT 0.3 mg/dL (0.0-0.4); BILIRUBIN,TOTAL 0.7 mg/dL (0.2-1.3); BLOOD UREA NITROGEN 17 mg/dL (7-20); CALCIUM 9.2 mg/dL (8.4-10.2); CARBON DIOXIDE 21 mmol/L (22-30); CHLORIDE 102 mmol/L (98-107); CREATINE KINASE 74 U/L (55-170); GLUCOSE 216 mg/dL (75-110); POTASSIUM 4.2 mmol/L (3.6-5.0); TOTAL PROTEIN 6.6 g/dL (6.3-8.2)
[2018-12-29 05:04] LABS: CREATINE KINASE MB 2.12 ng/mL (<4.55)
[2018-12-29 05:07] LABS: TROPONIN I 0.055 ng/mL
--- NOTE | 2018-12-29 05:08 | RADIOLOGY REPORT (SQ) ---
EXAM DESCRIPTION: XR CHEST 1 VIEW COMPLETED DATE/TME: 12/29/2018 04:16 CLINICAL HISTORY: 63 years, Male, SOB COMPARISON: 01/26/2018 NUMBER OF VIEWS: One TECHNIQUE: AP view of the chest LIMITATIONS: None. FINDINGS: The lungs are clear. The heart is enlarged. There is no pneumothorax or pleural effusion. There is no acute fracture. IMPRESSION: No acute cardiopulmonary abnormality copyright 2010 [employer]- All Rights Reserved
[2018-12-29] MEDS ORDERED: FUROSEMIDE INJ/PF 40 MG/4 ML SDV IV ONE (05:09)
--- NOTE | 2018-12-29 05:42 | RADIOLOGY REPORT (SQ) ---
EXAM DESCRIPTION: CT ABDOMEN PELVIS WITH IV CONTRAST COMPLETED DATE/TME: 12/29/2018 04:24 CLINICAL HISTORY: 63 years Male, lower abd pain Comparison:Jan 27 2018 Technique: IV contrast. Coronal and sagittal reformat. This exam was performed according to our departmental dose-optimization program, which includes automated exposure control, adjustment of the mA and/or kV according to patient size and/or use of iterative reconstruction technique. [facility]: Dose Right [facility]: CareDose [facility]: Dose Right [facility]: Teradose 4D [facility]: Go [place] LIMITATIONS: None Findings: Small pericholecystic fluid. Degenerative disc disease. Coronary arterial calcification. Atherosclerotic vascular disease. Hepatic steatosis. Likely benign renal cyst(s), not definitively characterized. Minimal umbilical fat only hernia. Degenerative disc disease. Small L5-S1 disc bulge/osteophyte complex and 0.2 cm degenerative L5 retrolisthesis. Mild physiologic T11 and T7 anterior vertebral wedging. Spondylosis. Mild anasarca. No ascites. No pneumoperitoneum. Normal appendix. No bowel obstruction. No hydronephrosis or hydroureter. No renal/ureteral stone. No evidence of abdominal aortic aneurysm. No significant thecal sac/cord or nerve root compression. Inferior thorax, pancreas, spleen, adrenals, renal system, gastrointestinal tract, pelvic organs, lymphatics, vasculature, and musculoskeleton appear otherwise unremarkable. IMPRESSION: 1. Small pericholecystic fluid, nonspecific. Consider laboratory/sonographic correlation. 2. Mild anasarca. 3. Hepatic steatosis.
--- NOTE | 2018-12-29 07:06 | ER Document Report ---
ED Respiratory Problem - General Chief Complaint: Shortness Of Breath Stated Complaint: TROUBLE BREATHING Time Seen by Provider: 12/29/18 04:15 Notes: Patient is a 63-year-old male presents to the emergency department for generalized respiratory distress and abdominal bloating. Patient states his abdomen feels very heavy. Patient voices that he was at this facility in the past and admitted for congestive heart failure. States he was placed on multiple medications but is uninsured and has no money so has not gotten any of them filled. Patient states he has had generalized respiratory distress for the last 3 weeks. Patient states he cannot lie flat so he has not been sleeping well. Patient's denying any nausea, vomiting, diarrhea. Complaining of generalized bilateral lower abdominal bloating. Patient's denying any chest pain at this time. Only complaining of generalized Respiratory distress. Patient is noted to be tachypneic. TRAVEL OUTSIDE OF THE [place] IN LAST 30 DAYS: No - Related Data Allergies/Adverse Reactions: No Known Allergies Allergy (Verified 08/10/11 14:01) Past Medical History - General Information source: Patient - Social History Smoking Status: Unknown if Ever Smoked Family History: None - Unknown to patient Patient has suicidal ideation: No Patient has homicidal ideation: No - Past Medical History Cardiac Medical History: Reports: Hx Congestive Heart Failure, Hx Hypertension Renal/ Medical History: Denies: Hx Peritoneal Dialysis - Immunizations Hx Diphtheria, Pertussis, Tetanus Vaccination: - unknown Review of Systems - Review of Systems Constitutional: denies: Fever EENT: No symptoms reported Cardiovascular: See HPI Respiratory: See HPI Gastrointestinal: See HPI Genitourinary: No symptoms reported Male Genitourinary: No symptoms reported Musculoskeletal: No symptoms reported Skin: No symptoms reported Hematologic/Lymphatic: No symptoms reported Neurological/Psychological: No symptoms reported Physical Exam - Vital signs Vitals: Temp Pulse Resp BP Pulse Ox 97.8 F 108 H 32 H 175/110 H 100 12/29/18 03:56 12/29/18 03:56 12/29/18 03:56 12/29/18 03:56 12/29/18 03:56 - Notes Notes: GENERAL: Alert, interacts well. No acute distress. HEAD: Normocephalic, atraumatic. EYES: Pupils equal, round, and reactive to light. Extraocular movements intact. ENT: Oral mucosa moist, tongue midline. NECK: Full range of motion. Supple. Trachea midline. LUNGS: Slightly diminished bilateral bases, clear to auscultation bilateral apices, no discernible wheezes, rales, or rhonchi. Tachypnea noted when speaking with patient but as patient is sitting in the bed no respiratory distress noted. HEART: Tachycardic rate and rhythm. No murmur ABDOMEN: Soft, generalized tenderness noted right lower quadrant, left lower quadrant. No Hightower sign noted. Non-distended. Bowel sounds present in all 4 quadrants. EXTREMITIES: Moves all 4 extremities spontaneously. No edema, normal radial and dorsalis pedis pulses bilaterally. No cyanosis. BACK: no cervical, thoracic, lumbar midline tenderness. No saddle anesthesia, normal distal neurovascular exam. NEUROLOGICAL: Alert and oriented x3. Normal speech. cranial nerves II through XII grossly intact PSYCH: Normal affect, normal mood. SKIN: Warm, dry, normal turgor. No rashes or lesions noted. Course - Re-evaluation Re-evalutation: Laboratory 12/29/18 12/29/18 12/29/18 04:20 04:20 04:20 WBC 6.7 RBC 4.67 Hgb 13.5 Hct 41.2 MCV 88 MCH 28.8 MCHC 32.7 RDW 14.6 H Plt Count 152 Lymph % (Auto) 35.0 [place] % (Auto) 7.5 Eos % (Auto) 1.1 Baso % (Auto) 1.0 Absolute Neuts (auto) 3.7 Absolute Lymphs (auto) 2.3 Absolute Monos (auto) 0.5 Absolute Eos (auto) 0.1 Absolute Basos (auto) 0.1 Seg Neutrophils % 55.4 PT INR Sodium 136.5 L Potassium 4.2 Chloride 102 Carbon Dioxide 21 L Anion Gap 14 BUN 17 Creatinine 1.10 Est GFR ( Amer) > 60 Est GFR (MDRD) Non-Af > 60 Glucose 216 H Calcium 9.2 Total Bilirubin 0.7 Direct Bilirubin 0.3 Neonat Total Bilirubin Not Reportable Neonat Direct Bilirubin Not Reportable Neonat Indirect Bili Not Reportable AST 52 ALT 47 Alkaline Phosphatase 61 Creatine Kinase 74 CK-MB (CK-2) 2.12 Troponin I 0.055 NT-Pro-B Natriuret Pep 3080 H Total Protein 6.6 Albumin 4.0 Lipase 12/29/18 12/29/18 04:20 04:20 WBC RBC Hgb Hct MCV MCH MCHC RDW Plt Count Lymph % (Auto) [place] % (Auto) Eos % (Auto) Baso % (Auto) Absolute Neuts (auto) Absolute Lymphs (auto) Absolute Monos (auto) Absolute Eos (auto) Absolute Basos (auto) Seg Neutrophils % PT 15.5 H INR 1.22 Sodium Potassium Chloride Carbon Dioxide Anion Gap BUN Creatinine Est GFR ( Amer) Est GFR (MDRD) Non-Af Glucose Calcium Total Bilirubin Direct Bilirubin Neonat Total Bilirubin Neonat Direct Bilirubin Neonat Indirect Bili AST ALT Alkaline Phosphatase Creatine Kinase CK-MB (CK-2) Troponin I NT-Pro-B Natriuret Pep Total Protein Albumin Lipase 89.9 Chest X-Ray 12/29/18 04:16 IMPRESSION: No acute cardiopulmonary abnormality copyright 2011 [employer]- All Rights Reserved Abdomen/Pelvis CT 12/29/18 04:24 IMPRESSION: 1. Small pericholecystic fluid, nonspecific. Consider laboratory/sonographic correlation. 2. Mild anasarca. 3. Hepatic steatosis. Based on past patient visits he is supposed to be on aspirin, Coreg, Lasix, lisinopril, metformin, potassium. Patient has been given Lasix in the emergency department. Based on his BMP and troponin I feel as though the patient should be admitted to the hospital for observation and continued care. I discussed this case with my attending Dr. Wells who is in agreements. Patient voices that he does not want to stay in the hospital. Patient states his breathing is a lot better and he would like to go home. I discussed with patient at length following up with [facility] in [facility] as these are two clinics that he can go to as he is uninsured to get the medications that he needs. On examination patient is no longer tachypneic. He is no longer tachycardic. Patient voices that he overall feels a lot better. Patient's denying any abdominal pain at this time. Patient has signed out AGAINST MEDICAL ADVICE paperwork. - Vital Signs Vital signs: Temp Pulse Resp BP Pulse Ox 97.8 F 108 H 20 165/109 H 99 12/29/18 03:56 12/29/18 03:56 12/29/18 06:01 12/29/18 06:01 12/29/18 06:01 - Laboratory Result Diagrams: 12/29/18 04:20 12/29/18 04:20 Laboratory results interpreted by me: 12/29/18 12/29/18 12/29/18 04:20 04:20 04:20 RDW 14.6 H PT Sodium 136.5 L Carbon Dioxide 21 L Glucose 216 H NT-Pro-B Natriuret Pep 3080 H 12/29/18 04:20 RDW PT 15.5 H Sodium Carbon Dioxide Glucose NT-Pro-B Natriuret Pep Discharge - Discharge Clinical Impression: Respiratory distress Congestive heart failure Qualifiers: Heart failure type: other Qualified Code(s): I50.9 - Heart failure, unspecified Condition: Fair Disposition: AGAINST MEDICAL ADVICE Additional Instructions: As we discussed you are leaving the hospital AGAINST MEDICAL ADVICE. I have provided phone numbers for [facility] in [facility]. These are to clinics you can go to to see a doctor even though you are uninsured. Please make sure you follow-up with either 1 of these clinics in the next 24 hours. Please also return to the emergency room for any further concerns. Referrals: [facility] [Provider Group] - Follow up as needed [facility] [Provider Group] - Follow up as needed
[2018-12-29 07:11] VITALS: BP 148/108
--- NOTE | 2018-12-29 09:39 | EKG REPORT ---
SEVERITY:- ABNORMAL ECG - SINUS TACHYCARDIA NONSPECIFIC INTRAVENTRICULAR CONDUCTION DELAY CONSIDER ANTERIOR INFARCT : Confirmed by: Paul Hu MD 29-Dec-2018 09:39:06
== END 2018-12-29 07:10 | disposition left against medical advice (07) ==
LOC: ER 03:49
DX: I11.0 Hypertensive heart disease with heart failure (principal); I50.9 Heart failure, unspecified; T39.016A Underdosing of aspirin, initial encounter; T44.7X6A Underdosing of beta-adrenoreceptor antagonists, initial encounter; T50.1X6A Underdosing of loop [high-ceiling] diuretics, initial encounter; T46.4X6A Underdosing of angiotensin-converting-enzyme inhibitors, initial encounter; T38.3X6A Underdosing of insulin and oral hypoglycemic [antidiabetic] drugs, initial encounter; T50.3X6A Underdosing of electrolytic, caloric and water-balance agents, initial encounter; Z91.120 Patient's intentional underdosing of medication regimen due to financial hardship; Z91.14 Patient's other noncompliance with medication regimen; R06.03 Acute respiratory distress; R00.0 Tachycardia, unspecified; R10.813 Right lower quadrant abdominal tenderness; R10.814 Left lower quadrant abdominal tenderness; R60.1 Generalized edema; K76.0 Fatty (change of) liver, not elsewhere classified; Z53.20 Procedure and treatment not carried out because of patient's decision for unspecified reasons
CPT/HCPCS: 93005; 99285; 96374; 36415; 82553; 82550; 83690; 85025; 85610; 80053; 84484; 83880; 71045; 74177; 93010; J1940

== ENCOUNTER 2018-12-31 16:24 | Inpatient (IN) | payer OTHER ==
--- NOTE | 2018-12-31 16:39 | ER Document Report ---
ED Medical Screen (RME) - General Chief Complaint: Breathing Difficulty Stated Complaint: DIFFICULTY BREATHING Time Seen by Provider: 12/31/18 16:34 Mode of Arrival: Ambulatory Information source: Patient Notes: 63-year-old male presented to ED for complaint of shortness of breath cannot breathing unless he is sitting up straight. 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 He states they gave him some Lasix and he voided a lot of fluids and he felt better for little while but now is back as bad or worse than he was before. He states he went to [facility] and they told medical assistant dermatology in the office if he did get to the emergency room. Patient is very short of breath he does have 3+ pitting edema bilateral ankles feet and lower legs. I have greeted and performed a rapid initial assessment of this patient. A comprehensive ED assessment and evaluation of the patient, analysis of test results and completion of medical decision making process will be conducted by an additional ED providers. TRAVEL OUTSIDE OF THE [place] IN LAST 30 DAYS: No - Related Data Allergies/Adverse Reactions: No Known Allergies Allergy (Verified 12/31/18 16:24) Past Medical History - Past Medical History Cardiac Medical History: Reports: Hx Congestive Heart Failure, Hx Hypertension Renal/ Medical History: Denies: Hx Peritoneal Dialysis - Immunizations Hx Diphtheria, Pertussis, Tetanus Vaccination: - unknown Physical Exam - Vital signs Vitals: Temp Pulse Resp BP Pulse Ox 98.2 F 113 H 18 169/110 H 94 12/31/18 16:28 12/31/18 16:28 12/31/18 16:28 12/31/18 16:28 12/31/18 16:28 Course - Vital Signs Vital signs: Temp Pulse Resp BP Pulse Ox 98.2 F 113 H 18 169/110 H 94 12/31/18 16:28 12/31/18 16:28 12/31/18 16:28 12/31/18 16:28 12/31/18 16:28
--- NOTE | 2018-12-31 17:19 | RADIOLOGY REPORT (SQ) ---
EXAM DESCRIPTION: CHEST 2 VIEWS COMPLETED DATE/TIME: 12/31/2018 5:02 pm REASON FOR STUDY: Short of breath difficulty breathing pedal edema COMPARISON: 12/29/2018 EXAM PARAMETERS: NUMBER OF VIEWS: two views TECHNIQUE: Digital Frontal and Lateral radiographic views of the chest acquired. RADIATION DOSE: NA LIMITATIONS: none FINDINGS: LUNGS AND PLEURA: No opacities, masses or pneumothorax. No pleural effusion. MEDIASTINUM AND HILAR STRUCTURES: No masses or contour abnormalities. HEART AND VASCULAR STRUCTURES: Heart is enlarged. No failure. No effusions. BONES: No acute findings. HARDWARE: None in the chest. OTHER: No other significant finding. IMPRESSION: Cardiomegaly. No acute findings in the chest. TECHNICAL DOCUMENTATION: JOB ID: [id number] [employer]- All Rights Reserved Reading location - IP/workstation name: [email or web address]
[2018-12-31 17:20] LABS: ABSOLUTE BASOPHILS # (AUTO) 0.1 10^3/uL (0.0-0.2); ABSOLUTE EOSINOPHILS # (AUTO) 0.1 10^3/uL (0.0-0.6); ABSOLUTE LYMPHOCYTES (AUTO) 1.8 10^3/uL (0.5-4.7); ABSOLUTE MONOCYTES (AUTO) 0.6 10^3/uL (0.1-1.4); BASOPHILS % (AUTO) 0.7 % (0-2); EOSINOPHILS % (AUTO) 0.8 % (0-6); HEMATOCRIT 42.3 % (37.9-51.0); HEMOGLOBIN 13.8 g/dL (13.5-17.0); LYMPHOCYTES % (AUTO) 24.2 % (13-45); MEAN CORPUSCULAR HEMOGLOBIN 28.6 pg (27.0-33.4); MEAN CORPUSCULAR HGB CONC 32.7 g/dL (32.0-36.0); MEAN CORPUSCULAR VOLUME 88 fl (80-97); MONOCYTES % (AUTO) 8.4 % (3-13); PLATELET COUNT 158 10^3/uL (150-450); RED BLOOD COUNT 4.83 10^6/uL (4.35-5.55); RED CELL DISTRIBUTION WIDTH 14.6 % (11.5-14.0); SEGMENTED NEUTROPHILS % (AUTO) 65.9 % (42-78); TOTAL CELLS COUNTED % (AUTO) 100 %; WHITE BLOOD COUNT 7.6 10^3/uL (4.0-10.5)
[2018-12-31 17:36] LABS: ALBUMIN 4.2 g/dL (3.5-5.0); ALKALINE PHOSPHATASE 55 U/L (38-126); ANION GAP 12 (5-19); ASPARTATE AMINO TRANSFERASE 36 U/L (17-59); BILIRUBIN,DIRECT 0.4 mg/dL (0.0-0.4); BLOOD UREA NITROGEN 20 mg/dL (7-20); CALCIUM 9.5 mg/dL (8.4-10.2); CARBON DIOXIDE 21 mmol/L (22-30); CHLORIDE 107 mmol/L (98-107); CREATINE KINASE 75 U/L (55-170); GLUCOSE 142 mg/dL (75-110); POTASSIUM 4.3 mmol/L (3.6-5.0); TOTAL PROTEIN 6.9 g/dL (6.3-8.2)
[2018-12-31 17:44] LABS: CREATINE KINASE MB 1.89 ng/mL (<4.55)
[2018-12-31 18:14] LABS: TROPONIN I 0.064 ng/mL
[2018-12-31] MEDS ORDERED: FUROSEMIDE INJ/PF 40 MG/4 ML SDV IV ONE (18:24)
--- NOTE | 2018-12-31 18:56 | RADIOLOGY REPORT (SQ) ---
EXAM DESCRIPTION: CTA CHEST COMPLETED DATE/TIME: 12/31/2018 6:42 pm REASON FOR STUDY: cp,sob COMPARISON: CT chest dated 01/26/2018 TECHNIQUE: CT scan of the chest performed using helical scanning technique with dynamic intravenous contrast injection. Images reviewed with lung, soft tissue and bone windows. Reconstructed coronal and sagittal MPR images reviewed. Additional 3 dimensional post-processing performed to develop Maximal Intensity Projection images (AZ P). All images stored on PACS. All CT scanners at this facility use dose modulation, iterative reconstruction, and/or weight based d osing when appropriate to reduce radiation dose to as low as reasonably achievable (ALARA). [facility]: Dose Right [facility]: CareDose [facility]: Dose Right [facility]: Teradose 4D [facility]: EcoSynthe[employer]ix CONTRAST TYPE AND DOSE: contrast/concentration: Isovue 350.00 mg/ml; Total Contrast Delivered: 70.0 ml; Total Saline Delivered: 80.0 ml Contrast bolus optimized for the pulmonary arteries. Not diagnostic for the aorta. RENAL FUNCTION: BUN 20, creatinine 1.28 RADIATION DOSE: CT Rad equipment meets quality standard of care and radiation dose reduction techniq ues were employed. CTDIvol: 27.9 - 46.3 mGy. DLP: 1029 mGy-cm. . LIMITATIONS: None. FINDINGS: LUNGS AND PLEURA: No masses, infiltrates, or pneumothorax. No pleural effusions or pleura l calcifications. AORTA AND GREAT VESSELS: No aneurysm. Contrast bolus not optimized for the aorta. HEART: No pericardial effusion. No significant coronary artery calcifications. PULMONARY ARTERIES: No emboli visualized in the main pulmonary arteries or the segmental branches. HILAR AND MEDIASTINAL STRUCTURES: There is grossly stable mediastinal and hilar adenopathy. There is a prevascular node with a long axis measurement of 2.3 cm. There is stable sub- carinal adenopathy. HARDWARE: None in the chest. UPPER ABDOMEN: Unchanged in appearance with small exophytic lesion off the upper pole the right kidne y. THYROID AND OTHER SOFT TISSUES: No masses. No adenopathy. BONES: No acute or significant finding. 3D MIPS: Confirm above findings. OTHER: No other significant finding. IMPRESSION: 1. No pulmonary emboli. 2. Grossly stable mediastinal and hilar adenopathy. COMMENT: Quality ID # [id number]: Final reports with documentation of one or more dose reduction techniques (e.g., Automated exposure control, adjustment of the mA and/or kV according to patient size, use of iterative reconstruction technique) TECHNICAL DOCUMENTATION: JOB ID: [id number] [employer]- All Rights Reserved Reading location - IP/workstation name: [email or web address]
[2018-12-31 20:05] LABS: APPEARANCE,URINE CLEAR; BILIRUBIN,URINE NEGATIVE (NEGATIVE); COLOR,URINE YELLOW; GLUCOSE, URINE NEGATIVE (NEGATIVE); KETONES,URINE NEGATIVE (NEGATIVE); LEUKOCYTE ESTERASE,URINE NEGATIVE (NEGATIVE); NITRITE,URINE NEGATIVE (NEGATIVE); PROTEIN,URINE 30 mg/dL (NEGATIVE); URINE SPECIFIC GRAVITY 1.017; UROBILINOGEN,URINE NEGATIVE mg/dL (<2.0)
--- NOTE | 2018-12-31 20:42 | ER Document Report ---
ED General - General Chief Complaint: Breathing Difficulty Stated Complaint: DIFFICULTY BREATHING Time Seen by Provider: 12/31/18 16:34 Mode of Arrival: Ambulatory TRAVEL OUTSIDE OF THE [place] IN LAST 30 DAYS: No - HPI Notes: Patient presents complaining of shortness of breath. He states he has had the shortness of breath now for several weeks. It is getting worse every day. He states he can only walk approximately 5 steps without being short of breath. He also states that when he lays flat he is very short of breath. He states he has to sleep sitting up. He states he was in the emergency department approximately 3 days ago but he left AGAINST MEDICAL ADVICE. He states he also has some chest pressure. This chest pressure is intermittent. It is worse with exertion and better with rest. It does not radiate. It is moderate. He denies any congestion. He has had a dry cough. He states that he does not take any daily medicines and does not have a primary care doctor - Related Data Allergies/Adverse Reactions: No Known Allergies Allergy (Verified 12/31/18 16:24) Past Medical History - General Information source: Patient - Social History Smoking Status: Former Smoker Frequency of alcohol use: None Drug Abuse: None Family History: None - Unknown to patient, Reviewed & Not Pertinent Patient has suicidal ideation: No Patient has homicidal ideation: No - Past Medical History Cardiac Medical History: Reports: Hx Congestive Heart Failure, Hx Hypertension Renal/ Medical History: Denies: Hx Peritoneal Dialysis - Immunizations Hx Diphtheria, Pertussis, Tetanus Vaccination: - unknown Review of Systems - Review of Systems Constitutional: denies: Chills, Fever Cardiovascular: Chest pain, Palpitations Respiratory: Cough, Short of breath Gastrointestinal: denies: Diarrhea, Vomiting -: Yes All other systems reviewed and negative Physical Exam - Vital signs Vitals: Temp Pulse Resp BP Pulse Ox 98.2 F 113 H 18 169/110 H 94 12/31/18 16:28 12/31/18 16:28 12/31/18 16:28 12/31/18 16:28 12/31/18 16:28 Interpretation: Hypertensive, Tachycardic - General General appearance: Appears well, Alert - HEENT Head: Normocephalic, Atraumatic Eyes: Normal Pupils: PERRL - Respiratory Respiratory status: No respiratory distress Chest status: Nontender Breath sounds: Decreased air movement - bilat Chest palpation: Normal - Cardiovascular Rhythm: Tachycardia Heart sounds: Normal auscultation Murmur: No - Abdominal Inspection: Normal Distension: No distension Bowel sounds: Normal Tenderness: Nontender Organomegaly: No organomegaly - Back Back: Normal, Nontender - Extremities General upper extremity: Normal inspection, Nontender, Normal color, Normal ROM, Normal temperature General lower extremity: Normal inspection, Nontender, Edema - 2+ bilat, Normal color, Normal ROM, Normal temperature, Normal weight bearing. No: Luisa's sign - Neurological Neuro grossly intact: Yes Cognition: Normal Orientation: AAOx4 Rabia Coma Scale Eye Opening: Spontaneous Rabia Coma Scale Verbal: Oriented Rabia Coma Scale Motor: Obeys Commands Rabia Coma Scale Total: 15 Speech: Normal Motor strength normal: LUE, RUE, LLE, RLE Sensory: Normal - Psychological Associated symptoms: Normal affect, Normal mood - Skin Skin Temperature: Warm Skin Moisture: Dry Skin Color: Normal Course - Re-evaluation Re-evalutation: 12/31/18 20:47 Patient reevaluated. He is feeling slightly better. Work-up is remarkable for new onset congestive heart failure. Patient will require admission for further evaluation as well as serial enzymes. He will also require diuresis. - Vital Signs Vital signs: Temp Pulse Resp BP Pulse Ox 98.2 F 113 H 17 165/116 H 99 12/31/18 16:28 12/31/18 16:28 12/31/18 18:01 12/31/18 18:01 12/31/18 18:01 - Laboratory Result Diagrams: 12/31/18 17:00 12/31/18 17:00 Laboratory results interpreted by me: 12/31/18 12/31/18 12/31/18 17:00 17:00 17:00 RDW 14.6 H Carbon Dioxide 21 L Creatinine 1.28 H Est GFR (MDRD) Non-Af 57 L Glucose 142 H NT-Pro-B Natriuret Pep 3240 H Urine Protein 12/31/18 19:40 RDW Carbon Dioxide Creatinine Est GFR (MDRD) Non-Af Glucose NT-Pro-B Natriuret Pep Urine Protein 30 H - Diagnostic Test Radiology reviewed: Image reviewed, Reports reviewed - EKG Interpretation by Me EKG shows normal: Sinus rhythm Rate: Tachycardia - 104 Rhythm: NSR Voltage: Consistant with LVH Discharge - Discharge Clinical Impression: Congestive heart failure (CHF) Qualifiers: Heart failure type: unspecified Heart failure chronicity: acute Qualified Code(s): I50.9 - Heart failure, unspecified Condition: Serious Disposition: ADMITTED INPATIENT Admitting Provider: Wilfredo (Hospitalist) Unit Admitted: [facility]
[2018-12-31] MEDS ORDERED: ASPIRIN 325 MG TABLET PO ONE (20:49)
[2018-12-31] MEDS ORDERED: MAG HYDROX/AL HYDROX/SIMETH SUSP 30 ML UDCUP PO PRN (21:11)
[2018-12-31] MEDS ORDERED: MAGNESIUM HYDROXIDE SUSP 30 ML UDCUP PO PRN (21:11)
[2018-12-31] MEDS ORDERED: DEXTROSE 50%-WATER 25 GM/50 ML DISP.SYRIN IV PRN ×2 (21:18)
[2018-12-31] MEDS ORDERED: HYDRALAZINE HCL INJ/PF 20 MG/1 ML SDV IV PRN (21:18)
[2018-12-31] MEDS ORDERED: NALBUPHINE HCL INJ 10 MG/1 ML AMPULE IV PRN ×3 (21:18→21:25)
[2018-12-31] MEDS ORDERED: GLUCAGON,HUMAN RECOMB 1 MG INJ IM PRN (21:18)
[2018-12-31] MEDS ORDERED: ACETAMINOPHEN 325 MG TABLET PO PRN (21:18)
[2018-12-31] MEDS ORDERED: DEXTROSE 40% GEL 15 GM TUBE PO PRN ×2 (21:18)
--- NOTE | 2018-12-31 21:41 | RADIOLOGY REPORT (SQ) ---
US LOWER EXTREMITY VEINS EXAM DATE: 12/31/2018 6:06 PM CDT HISTORY: Leg pain and swelling. COMPARISON: None. TECHNIQUE: Grayscale, color Doppler, and spectral Doppler images of the right lower extremity were performed. FINDINGS: The common femoral, superficial femoral and popliteal veins are patent and compressible. Normal augmentation and color Doppler blood flow in the aforementioned veins. The visualized calf veins are also patent. IMPRESSION: No evidence of deep venous thrombosis in the right lower extremity.
[2018-12-31] MEDS ORDERED: METOPROLOL TARTRATE 50 MG TABLET PO ONE (22:00)
[2018-12-31 22:44] LABS: CREATINE KINASE MB 1.76 ng/mL (<4.55); TROPONIN I 0.072 ng/mL
[2018-12-31 22:50] LABS: FREE T3 3.11 pg/mL (2.77-5.27); FREE T4 (FREE THYROXINE) 1.43 ng/dL (0.78-2.19)
[2018-12-31 23:04] LABS: THYROID STIMULATING HORMONE 3.2 uIU/mL (0.47-4.68)
[2018-12-31] MEDS: METOCLOPRAMIDE HCL 10 MG TABLET PO SCH (23:04)
[2018-12-31] MEDS: INSULIN REG, HUMAN 100 UNIT/ML 3 ML VIAL (PYX) SUBCUT PRN (23:04)
[2018-12-31] MEDS: SUCRALFATE 1 GM TABLET PO SCH (23:04)
[2018-12-31] MEDS: FAMOTIDINE 20 MG TABLET PO SCH (23:04)
[2018-12-31] MEDS: FUROSEMIDE INJ/PF 40 MG/4 ML SDV IV SCH (23:05)
[2018-12-31] MEDS: HEPARIN SOD (PORCINE) 5,000 UNIT/ML 1 ML VIAL SUBCUT SCH (23:05)
--- NOTE | 2018-12-31 23:23 | EKG REPORT ---
SEVERITY:- ABNORMAL ECG - SINUS TACHYCARDIA PROBABLE LEFT ATRIAL ABNORMALITY NONSPECIFIC INTRAVENTRICULAR CONDUCTION DELAY LEFT VENTRICULAR HYPERTROPHY : Confirmed by: Kalyan Bradley 31-Dec-2018 23:21:41
--- NOTE | 2019-01-01 00:20 | PDOC H&P ---
History of Present Illness Admission Date/PCP: 12/31/18 20:51 No PCP Patient complains of: Dyspnea History of Present Illness: SARA HOLLIDAY is a 63 year old male who presented to the emergency room with a 2-week history of dyspnea. Patient admits gradually worsening dyspnea over the last 2 weeks associated with swelling in his lower extremities, orthopnea, intermittent moderate central chest pressure, a nonproductive cough and most recently severe dyspnea on exertion. He denies other associated or accompanying signs and symptoms. He admits that he was seen in the emergency room 3 days prior to this visit and admission was recommended at that time however he refused. He has not identified any aggravating or ameliorating factors for his dyspnea with the exception of transient relief after being given Lasix in the emergency room 3 days ago. He denies prior similar symptoms. In the emergency room he was found to have a significantly elevated BNP and his clinical evaluation was consistent with peripheral edema secondary to congestive heart failure. Patient was subsequently admitted to the hospital for further evaluation and treatment. Past Medical History Cardiac Medical History: Reports: Congestive Heart Failure, Hypertension Denies: Coronary Artery Disease, DVT, Myocardial Infarction Pulmonary Medical History: Denies: Asthma, Chronic Obstructive Pulmonary Disease (COPD) EENT Medical History: Denies: Cataracts, Ears - Hearing aids Neurological Medical History: Denies: Hemorrhagic CVA, Ischemic CVA, Seizures Endocrine Medical History: Reports: Diabetes Mellitus Type 2, Obesity Denies: Diabetes Mellitus Type 1, Hyperthyroidism, Hypothyroidism Renal/ Medical History: Denies: Chronic Kidney Disease, Nephrolithiasis Malignancy Medical History: Reports: None GI Medical History: Denies: Cirrhosis, Crohn's Disease, Hepatitis, Ulcerative Colitis Musculoskeltal Medical History: Denies: Arthritis, Gout Skin Medical History: Denies: Eczema, Psoriasis Psychiatric Medical History: Denies: Alcohol Dependency, Substance Abuse, Tobacco Dependency Traumatic Medical History: Reports: None Hematology: Denies: Anemia, Bleeding Tendencies Infectious Medical History: Reports: None Past Surgical History Past Surgical History: Reports: None Social History Information Source: Patient Lives with: Alone Smoking Status: Former Smoker Frequency of Alcohol Use: None Hx Recreational Drug Use: No Drugs: None Hx Prescription Drug Abuse: No - Advance Directive Resuscitation Status: Full Code Surrogate healthcare decision maker:: Refused to name a designated medical surrogate Family History Family History: None - Patient's biologic family is unknown to him Parental Family History Reviewed: No Children Family History Reviewed: No Sibling(s) Family History Reviewed.: No Medication/Allergy Home Medications: No Home Medications 12/31/18 Allergies/Adverse Reactions: No Known Allergies Allergy (Verified 12/31/18 16:24) Review of Systems Constitutional: ABSENT: chills, fever(s) Eyes: ABSENT: visual disturbances, other - Eye pain Ears: ABSENT: hearing changes, other - Ear pain Nose, Mouth, and Throat: ABSENT: mouth pain, sore throat Cardiovascular: PRESENT: as per HPI, chest pain, dyspnea on exertion, edema, orthropnea. ABSENT: palpitations Respiratory: PRESENT: as per HPI, cough, dyspnea. ABSENT: hemoptysis, sputum Gastrointestinal: ABSENT: abdominal pain, constipation, diarrhea, nausea, vomiting Genitourinary: ABSENT: dysuria, hematuria Musculoskeletal: ABSENT: joint swelling, muscle weakness Integumentary: ABSENT: pruritus, rash Neurological: ABSENT: confusion, convulsions, focal weakness, memory loss, syncope Psychiatric: ABSENT: anxiety, depression Endocrine: ABSENT: cold intolerance, heat intolerance Hematologic/Lymphatic: ABSENT: easy bleeding, easy bruising Allergic/Immunologic: ABSENT: seasonal rhinorrhea Physical Exam Vital Signs: Temp Pulse Resp BP Pulse Ox 98.2 F 113 H 17 165/116 H 99 12/31/18 16:28 12/31/18 16:28 12/31/18 18:01 12/31/18 18:01 12/31/18 18:01 Intake & Output 12/29/18 12/30/18 12/31/18 23:59 23:59 23:59 Weight 101.2 kg General appearance: PRESENT: cooperative, mild distress - Respiratory distress with orthopnea, tachypnea and ability to speak only in the short sentences., obese Head exam: PRESENT: atraumatic, normocephalic Eye exam: PRESENT: conjunctiva pink. ABSENT: conjunctival injection, scleral icterus Ear exam: PRESENT: normal external ear exam. ABSENT: bleeding, drainage Mouth exam: PRESENT: dry mucosa, neck supple Neck exam: PRESENT: JVD - Present bilaterally at 30 degrees. ABSENT: thyro megaly, tracheal deviation Respiratory exam: PRESENT: decreased breath sounds - Breath sounds decreased at both bases., rales - Bibasilar rales noted., symmetrical, tachypnea, other - Speaks only in short 2-4 word sentences due to dyspnea.. ABSENT: rhonchi Cardiovascular exam: PRESENT: gallop - S4 gallop, RRR, other - Severe orthopnea to exam. ABSENT: clicks, rubs Pulses: PRESENT: normal carotid pulses, normal radial pulses Vascular exam: PRESENT: normal capillary refill. ABSENT: pallor GI/Abdominal exam: PRESENT: normal bowel sounds, soft Rectal exam: PRESENT: deferred Extremities exam: PRESENT: pedal edema - Bilateral, other - 3+ pitting pretibial edema bilaterally. ABSENT: joint swelling Musculoskeletal exam: ABSENT: deformity, dislocation Neurological exam: PRESENT: alert, oriented to person, oriented to place, oriented to time, oriented to situation, CN II-XII grossly intact. ABSENT: motor sensory deficit Psychiatric exam: PRESENT: appropriate affect, normal mood Skin exam: PRESENT: dry, intact, warm. ABSENT: jaundice, rash, urticaria Results Laboratory Results: 12/31/18 17:00 12/31/18 17:00 12/31/18 12/31/18 12/31/18 17:00 17:00 19:40 WBC 7.6 RBC 4.83 Hgb 13.8 Hct 42.3 MCV 88 MCH 28.6 MCHC 32.7 RDW 14.6 H Plt Count 158 Seg Neutrophils % 65.9 Sodium 139.5 Potassium 4.3 Chloride 107 Carbon Dioxide 21 L Anion Gap 12 BUN 20 Creatinine 1.28 H Est GFR ( Amer) > 60 Glucose 142 H Calcium 9.5 Total Bilirubin 1.0 AST 36 Alkaline Phosphatase 55 Total Protein 6.9 Albumin 4.2 Lipase 111.3 Urine Color YELLOW Urine Appearance CLEAR Urine pH 5.0 Ur Specific [place] 1.017 Urine Protein 30 H Urine Glucose (UA) NEGATIVE Urine Ketones NEGATIVE Urine Blood NEGATIVE Urine Nitrite NEGATIVE Ur Leukocyte Esterase NEGATIVE Urine WBC (Auto) 2 Urine RBC (Auto) 1 12/31/18 12/31/18 12/31/18 17:00 17:00 17:00 Creatine Kinase 75 CK-MB (CK-2) 1.89 Troponin I 0.064 NT-Pro-B Natriuret Pep 3240 H Impressions: Chest X-Ray 12/31/18 16:35 IMPRESSION: Cardiomegaly. No acute findings in the chest. Chest/Abdomen CTA 12/31/18 18:08 IMPRESSION: 1. No pulmonary emboli. 2. Grossly stable mediastinal and hilar adenopathy. Assessment and Plan - Diagnosis (1) Congestive heart failure Qualifiers: Heart failure type: unspecified Heart failure chronicity: acute on chronic Qualified Code(s): I50.9 - Heart failure, unspecified Is this a current diagnosis for this admission?: Yes Plan: Patient's congestive heart failure will be initially treated with metoprolol and losartan. A cardiac consultation with Dr. Guajardo has been obtained. An echocardiogram will also be obtained. Daily laboratories including a CBC, metabolic profile and magnesium level will be obtained. (2) Diabetes mellitus type 2 in obese Is this a current diagnosis for this admission?: Yes Plan: Initially the patient placed on a diabetic diet and will use AC and at bedtime Accu-Cheks to assess his diabetic control. Hyperglycemia will be treated with sliding scale insulin dosage and hypoglycemia will be treated per protocol. (3) Hypertension Qualifiers: Hypertension type: essential hypertension Qualified Code(s): I10 - Essential (primary) hypertension Is this a current diagnosis for this admission?: Yes Plan: Patient's antihypertensive regiment will be achieved along with controlling his congestive heart failure. Initial dosing of metoprolol and losartan has been ordered. Patient's clinical response will be monitored with frequent assessments of his blood pressure. (4) Diabetic gastroparesis associated with type 2 diabetes mellitus Is this a current diagnosis for this admission?: Yes Plan: Patient be treated with sucralfate 1 g p.o. before meals and at bedtime, metoclopramide 10 mg p.o. before meals and at bedtime and famotidine 10 mg p.o. before meals and at bedtime. - Time Time Spent with patient: 25-34 minutes Medications reviewed and adjusted accordingly: No - not taking medications Anticipated discharge: Home - Inpatient Certification Based on my medical assessment, after consideration of the patient's comorbidities, presenting symptoms, or acuity I expect that the services needed warrant INPATIENT care.: Yes I certify that my determination is in accordance with my understanding of Medicare's requirements for reasonable and necessary INPATIENT services [42 CFR 412.3e].: Yes Medical Necessity: Need Close Monitoring Due to Risk of Patient Decompensation, Need For Continuous Telemetry Monitoring, Risk of Complication if Not Cared For in Hospital, Risk of Diagnosis Which Will Require Inpatient Eval/Care/Monitoring
[2019-01-01] MEDS: FUROSEMIDE INJ/PF 40 MG/4 ML SDV IV SCH ×2 (05:06→14:05)
[2019-01-01] MEDS: HEPARIN SOD (PORCINE) 5,000 UNIT/ML 1 ML VIAL SUBCUT SCH ×3 (05:06→21:19)
[2019-01-01 05:08] LABS: HEMATOCRIT 43.4 % (37.9-51.0); HEMOGLOBIN 14.1 g/dL (13.5-17.0); MEAN CORPUSCULAR HEMOGLOBIN 28.6 pg (27.0-33.4); MEAN CORPUSCULAR HGB CONC 32.4 g/dL (32.0-36.0); MEAN CORPUSCULAR VOLUME 88 fl (80-97); PLATELET COUNT 173 10^3/uL (150-450); RED BLOOD COUNT 4.93 10^6/uL (4.35-5.55); RED CELL DISTRIBUTION WIDTH 14.9 % (11.5-14.0); WHITE BLOOD COUNT 8.7 10^3/uL (4.0-10.5)
[2019-01-01 05:27] LABS: ANION GAP 15 (5-19); BLOOD UREA NITROGEN 25 mg/dL (7-20); CALCIUM 9.4 mg/dL (8.4-10.2); CARBON DIOXIDE 23 mmol/L (22-30); CHLORIDE 102 mmol/L (98-107); CHOLESTEROL 143.07 mg/dL (0-200); GLUCOSE 130 mg/dL (75-110); POTASSIUM 4.5 mmol/L (3.6-5.0); TRIGLYCERIDES 123 mg/dL (<150)
[2019-01-01 05:37] LABS: DIRECT LDL 104 mg/dL (<100)
[2019-01-01 05:38] LABS: CREATINE KINASE MB 1.78 ng/mL (<4.55); TROPONIN I 0.072 ng/mL
[2019-01-01] MEDS: FAMOTIDINE 20 MG TABLET PO SCH ×4 (08:12→21:19)
[2019-01-01] MEDS: SUCRALFATE 1 GM TABLET PO SCH ×4 (08:12→21:19)
[2019-01-01] MEDS: METOCLOPRAMIDE HCL 10 MG TABLET PO SCH ×4 (08:12→21:19)
[2019-01-01] MEDS ORDERED: LOSARTAN POTASSIUM 50 MG TABLET PO SCH (10:00)
[2019-01-01] MEDS: METOPROLOL SUCCINATE 50 MG TAB.SR.24H PO SCH (10:14)
[2019-01-01] MEDS: DOCUSATE SODIUM 100 MG CAPSULE PO SCH ×2 (10:14→17:55)
[2019-01-01 11:04] LABS: CREATINE KINASE MB 1.72 ng/mL (<4.55); TROPONIN I 0.054 ng/mL
--- NOTE | 2019-01-01 12:57 | Progress Note Acknowledgement ---
Progress Note Acknowledgement Progess Note Acknowledgement: I, the undersigned member of the medical staff with appropriate privileges and with supervisory authority over [ PAC ], a dependent practice allied health professional, acknowledge that I have reviewed the progress notes entered on this patient, and in my professional judgment believe that the assessment made and/or any care evidenced was appropriate
--- NOTE | 2019-01-01 13:11 | PDOC PROGRESS REPORT ---
Subjective Progress Note for:: 01/01/19 Subjective:: Patient was admitted last night through the emergency room for 2 weeks of shortness of breath. Patient has had this before and in fact he was in the emergency room recently because of the cost of medication did not get his prescriptions filled. According to the patient is never been told in the past he had high blood pressure, heart failure, kidney disease. For the last 2 weeks he has been more short of breath exertion is also noticed edema in his lower extremities. Patient was in the ER 3 days ago these complaints, and approximately 1 year ago in the ER with these exact same complaints. Reason For Visit: ACUTE ON CHRONIC CONGESTIVE HEART FAILURE Physical Exam Vital Signs: Temp Pulse Resp BP Pulse Ox 97.4 F 79 18 125/88 H 100 01/01/19 11:43 01/01/19 11:43 01/01/19 11:43 01/01/19 11:43 01/01/19 11:43 Intake & Output 12/31/18 01/01/19 01/02/19 06:59 06:59 06:59 Weight 100.9 kg General appearance: PRESENT: mild distress, other - Patient is able to talk in full sentences, he sitting up on the side of the bed. Respiratory exam: PRESENT: crackles - Scattered Cardiovascular exam: PRESENT: RRR. ABSENT: diastolic murmur, rubs, systolic murmur Extremities exam: PRESENT: +2 edema, other - Both lower extremities to the shins Neurological exam: PRESENT: alert, awake, oriented to person, oriented to place, oriented to time, oriented to situation, CN II-XII grossly intact. ABSENT: motor sensory deficit Psychiatric exam: PRESENT: appropriate affect, normal mood. ABSENT: homicidal ideation, suicidal ideation Results Laboratory Results: 01/01/19 04:17 01/01/19 04:17 12/31/18 12/31/18 12/31/18 17:00 17:00 19:40 WBC 7.6 RBC 4.83 Hgb 13.8 Hct 42.3 MCV 88 MCH 28.6 MCHC 32.7 RDW 14.6 H Plt Count 158 Seg Neutrophils % 65.9 Sodium 139.5 Potassium 4.3 Chloride 107 Carbon Dioxide 21 L Anion Gap 12 BUN 20 Creatinine 1.28 H Est GFR ( Amer) > 60 Glucose 142 H Calcium 9.5 Magnesium Total Bilirubin 1.0 AST 36 Alkaline Phosphatase 55 Total Protein 6.9 Albumin 4.2 Triglycerides Cholesterol LDL Cholesterol Direct VLDL Cholesterol HDL Cholesterol Lipase 111.3 TSH Free T4 Free T3 pg/mL Urine Color YELLOW Urine Appearance CLEAR Urine pH 5.0 Ur Specific [place] 1.017 Urine Protein 30 H Urine Glucose (UA) NEGATIVE Urine Ketones NEGATIVE Urine Blood NEGATIVE Urine Nitrite NEGATIVE Ur Leukocyte Esterase NEGATIVE Urine WBC (Auto) 2 Urine RBC (Auto) 1 12/31/18 01/01/19 01/01/19 22:07 04:17 04:17 WBC 8.7 RBC 4.93 Hgb 14.1 Hct 43.4 MCV 88 MCH 28.6 MCHC 32.4 RDW 14.9 H Plt Count 173 Seg Neutrophils % Sodium 140.3 Potassium 4.5 Chloride 102 Carbon Dioxide 23 Anion Gap 15 BUN 25 H Creatinine 1.44 H Est GFR ( Amer) > 60 Glucose 130 H Calcium 9.4 Magnesium 2.3 Total Bilirubin AST Alkaline Phosphatase Total Protein Albumin Triglycerides 123 Cholesterol 143.07 LDL Cholesterol Direct 104 H VLDL Cholesterol 25.0 HDL Cholesterol 29 L Lipase TSH 3.20 Free T4 1.43 Free T3 pg/mL 3.11 Urine Color Urine Appearance Urine pH Ur Specific [place] Urine Protein Urine Glucose (UA) Urine Ketones Urine Blood Urine Nitrite Ur Leukocyte Esterase Urine WBC (Auto) Urine RBC (Auto) 12/31/18 12/31/18 12/31/18 17:00 17:00 17:00 Creatine Kinase 75 CK-MB (CK-2) 1.89 Troponin I 0.064 NT-Pro-B Natriuret Pep 3240 H 12/31/18 12/31/18 01/01/19 22:07 22:07 04:17 Creatine Kinase 73 66 CK-MB (CK-2) 1.76 Troponin I 0.072 NT-Pro-B Natriuret Pep 01/01/19 01/01/19 01/01/19 04:17 10:13 10:13 Creatine Kinase 67 CK-MB (CK-2) 1.78 1.72 Troponin I 0.072 0.054 NT-Pro-B Natriuret Pep Impressions: Chest X-Ray 12/31/18 16:35 IMPRESSION: Cardiomegaly. No acute findings in the chest. Venous Doppler Study 12/31/18 18:06 IMPRESSION: No evidence of deep venous thrombosis in the right lower extremity. Chest/Abdomen CTA 12/31/18 18:08 IMPRESSION: 1. No pulmonary emboli. 2. Grossly stable mediastinal and hilar adenopathy. Assessment and Plan - Diagnosis (1) Congestive heart failure Qualifiers: Heart failure type: unspecified Heart failure chronicity: acute on chronic Qualified Code(s): I50.9 - Heart failure, unspecified Is this a current diagnosis for this admission?: Yes Plan: Patient's congestive heart failure will be initially treated with metoprolol and losartan. A cardiac consultation with Dr. Guajardo has been obtained. An echocardiogram will also be obtained. Daily laboratories including a CBC, metabolic profile and magnesium level will be obtained. 01/01/2019 patient was on no home medications. Dr. Guajardo has seen the patient and recommended 10 you the Lasix, as well as lisinopril and Toprol and Nitropaste. Patient is in no respiratory distress, echo is pending. BNP elevated at 3240, chest x-ray showed no overt failure, Lasix currently 40 mg IV every 8 hours (2) Diabetes mellitus type 2 in obese Is this a current diagnosis for this admission?: Yes Plan: Initially the patient placed on a diabetic diet and will use AC and at bedtime Accu-Cheks to assess his diabetic control. Hyperglycemia will be treated with sliding scale insulin dosage and hypoglycemia will be treated per protocol. TASHA globin A1c is 7.3 and serum glucose is a approximally 135. he will be started on metformin 500 twice daily he is currently on a sliding scale as well (3) Hypertension Qualifiers: Hypertension type: essential hypertension Qualified Code(s): I10 - Essential (primary) hypertension Is this a current diagnosis for this admission?: Yes Plan: Patient's antihypertensive regiment will be achieved along with controlling his congestive heart failure. Initial dosing of metoprolol and losartan has been ordered. Patient's clinical response will be monitored with frequent assessments of his blood pressure. 01/01/2019 is currently taking lisinopril 20 mg every 12 hours Toprol XL 100 mg daily, and also on Nitropaste. On admission blood pressure was 169/110, this morning it is 125/88 (4) Respiratory distress Is this a current diagnosis for this admission?: Yes Plan: 01/01/2019 patient appears to be in no respiratory distress. Shortness of breath. BNP last night was 3240. Chest x-ray shows cardiomegaly but no acute findings CT scan showed no pulmonary emboli and grossly stable mediastinal and hilar adenopathy. - Time Time Spent with patient: 35 or more minutes
[2019-01-01] MEDS: INSULIN REG, HUMAN 100 UNIT/ML 3 ML VIAL (PYX) SUBCUT PRN (14:04)
[2019-01-01] MEDS: NITROGLYCERIN 2% OINTMENT 1 GM PACKET TP SCH ×2 (14:05→14:27)
[2019-01-01] MEDS: METFORMIN HCL 500 MG TABLET PO SCH (15:14)
[2019-01-01] MEDS: BUMETANIDE INJ/PF 1 MG/4 ML SDV IV SCH ×2 (17:55→21:25)
[2019-01-01] MEDS: LISINOPRIL 10 MG TABLET PO SCH (21:20)
--- NOTE | 2019-01-01 21:53 | PDOC CONSULTATION ---
Consultation-Blank Consultation: CARDIOLOGY CONSULTATION by Dr. Jessica Guajardo. On 01/01/2019. Patient seen at 11 AM. 60 minutes spent on this patient more than 50% of time spent in direct patient care. REASON FOR CONSULTATION: Patient with congestive heart failure. For management. CONSULT REQUESTING PHYSICIAN: [facility] HISTORY PRESENT ILLNESS: Patient is a 63-year-old male who states that since the last 3 to 4 weeks has been having progressively increasing shortness of breath ,to rest shortness of breath, with leg edema. He also has been having chest pressure and palpitations. He has no dizziness or near syncope. The patient came to the emergency room and was found to be in congestive heart failure biventricular. The patient states about 4 months ago he came in because he was feeling short of breath. His blood pressure was found to be high and also his blood sugar was high. He was prescribed medications. The patient does not know the name of the medications, but states that he could not afford them since he had no insurance. And he has not been on any medications. Past Medical History Cardiac Medical History: Reports: Congestive Heart Failure, Hypertension Denies: Coronary Artery Disease, DVT, Myocardial Infarction Pulmonary Medical History: Denies: Asthma, Chronic Obstructive Pulmonary Disease (COPD) EENT Medical History: Denies: Cataracts, Ears - Hearing aids Neurological Medical History: Denies: Hemorrhagic CVA, Ischemic CVA, Seizures Endocrine Medical History: Reports: Diabetes Mellitus Type 2, Obesity Denies: Diabetes Mellitus Type 1, Hyperthyroidism, Hypothyroidism Renal/ Medical History: Denies: Chronic Kidney Disease, Nephrolithiasis Malignancy Medical History: Reports: None GI Medical History: Denies: Cirrhosis, Crohn's Disease, Hepatitis, Ulcerative Colitis Musculoskeltal Medical History: Denies: Arthritis, Gout Skin Medical History: Denies: Eczema, Psoriasis Psychiatric Medical History: Denies: Alcohol Dependency, Substance Abuse, Tobacco Dependency Traumatic Medical History: Reports: None Hematology: Denies: Anemia, Bleeding Tendencies Infectious Medical History: Reports: None Past Surgical History Past Surgical History: Reports: None Social History Information Source: Patient Lives with: Alone Smoking Status: Former Smoker Frequency of Alcohol Use: None Hx Recreational Drug Use: No Drugs: None Hx Prescription Drug Abuse: No - Advance Directive Resuscitation Status: Full Code Surrogate healthcare decision maker:: Refused to name a designated medical surrogate Family History Family History: None - Patient's biologic family is unknown to him Parental Family History Reviewed: No Children Family History Reviewed: No Sibling(s) Family History Reviewed.: No Medication/Allergy Home Medications: No Home Medications 12/31/18 Allergies/Adverse Reactions: No Known Allergies Allergy (Verified 12/31/18 16:24) Review of Systems Constitutional: ABSENT: chills, fever(s) Eyes: ABSENT: visual disturbances, other - Eye pain Ears: ABSENT: hearing changes, other - Ear pain Nose, Mouth, and Throat: ABSENT: mouth pain, sore throat Cardiovascular: PRESENT: as per HPI, chest pain, dyspnea on exertion, edema, orthropnea. ABSENT: palpitations Respiratory: PRESENT: as per HPI, cough, dyspnea. ABSENT: hemoptysis, sputum Gastrointestinal: ABSENT: abdominal pain, constipation, diarrhea, nausea, vomiting Genitourinary: ABSENT: dysuria, hematuria Musculoskeletal: ABSENT: joint swelling, muscle weakness Integumentary: ABSENT: pruritus, rash Neurological: ABSENT: confusion, convulsions, focal weakness, memory loss, syncope Psychiatric: ABSENT: anxiety, depression Endocrine: ABSENT: cold intolerance, heat intolerance Hematologic/Lymphatic: ABSENT: easy bleeding, easy bruising Allergic/Immunologic: ABSENT: seasonal rhinorrhea PHYSICAL EXAMINATION: The patient is moderately obese. Mild distress secondary to shortness of breath. Selected Entries 01/01/19 11:43 Temperature 97.4 F Temperature Oral Source Pulse Rate 79 Respiratory 18 Rate Blood Pressure 125/88 H Blood Pressure 100 Mean BP Location Left Arm BP Position Supine O2 Sat by Pulse 100 Oximetry Oxygen Flow 3.00 Rate Oxygen Delivery Nasal Cannula Method HEAD: Is atraumatic normocephalic. EYES: Pupils equal round regular reactive to light accommodation. Extraocular movements are normal. There is no conjunctival pallor. There is no scleral icterus. NOSE: There is no deviated nasal septum. There is no inflammation of the nasal mucous membrane. MOUTH: Mucous memories of the mouth are moist. Tongue is moist. There is no ulcers. There is no bleeding from the gums. THROAT: There is no redness of the oropharynx. There is no exudates. SKIN: There is no skin rashes or skin lesions. There is no ecchymosis or petechiae. NECK: Is supple. There is mild JVD still present. Carotids are equal there is no bruit there is no lymphadenopathy. There is no goiter. There is no accessory muscle respiration use. There is no chest wall tenderness. Trachea central. LUNGS: Shows a few bibasilar fine rales of CHF. There is no rhonchi or wheezing. HEART: S1-S2 is heard. S1 is of normal intensity. There is no S3 gallop. There is no S4 g allop. There is murmur of mitral regurgitation and tricuspid regurgitation present. There is aortic sclerosis murmur. There is no rub. ABDOMEN: Soft. Mildly obese. Nontender. There is no hepatospleno megaly. Bowel sounds are well heard. EXTREMITIES: Femorals are deep. Femorals of slightly diminished. There is no femoral bruits. Leg pulses are well felt. There is trace pedal edema bilaterally. There is no DVT or cellulitis. There is no calf tenderness. [employer]: The patient is conscious awake alert oriented x3 with no focal deficits. PSYCHIATRIC: The patient judgment insight are intact his affect is normal. Current Medications Generic Name Dose Route Start Last Admin Trade Name Freq PRN Reason Stop Dose Admin Acetaminophen 650 mg 12/31/18 21:18 Tylenol 325 Mg Tablet PO 01/30/19 21:17 Q4HP PRN For headache, pain or fever Al Hydrox/Mg Hydrox/Simethicone 30 ml 12/31/18 21:11 Maalox Plus Susp 30 Udcup PO 01/30/19 21:10 Q6HP PRN HEARTBURN Dextrose 12.5 gm 12/31/18 21:18 Dextrose Inj 50% Syringe (25 Gm/50 Ml) IV 01/30/19 21:17 PRN PRN FOR BG 50-69 IN ALERT PATIENT Protocol Dextrose 25 gm 12/31/18 21:18 Dextrose Inj 50% Syringe (25 Gm/50 Ml) IV 01/30/19 21:17 PRN PRN PER PROTOCOL Protocol Docusate Sodium 100 mg 01/01/19 10:00 01/02/19 17:12 Colace 100 Mg Capsule PO 01/31/19 09:59 Not Given BID VIDYA Famotidine 10 mg 12/31/18 22:00 01/02/19 21:14 Pepcid 20 Mg Tablet PO 01/30/19 21:59 10 mg ACHS VIDYA Administration Furosemide 40 mg 01/03/19 10:00 Lasix 40 Mg Tablet PO 02/02/19 09:59 DAILY VIDYA Glucagon 1 mg 12/31/18 21:18 Glucagen Inj 1 Mg Vial IM 01/30/19 21:17 PRN PRN Evaluate for BG < 70 Protocol Glucose 15 gm 12/31/18 21:18 Glutose 40% Gel 15 Gm Tube PO 01/30/19 21:17 PRN PRN FOR BG 50-69 IN ALERT PATIENT Protocol Glucose 30 gm 12/31/18 21:18 Glutose 40% Gel 15 Gm Tube PO 01/30/19 21:17 PRN PRN FOR BG < 50 IN ALERT PATIENT Protocol Heparin Sodium (Porcine) 5,000 unit 12/31/18 22:00 01/02/19 21:14 Heparin Inj 5,000 Units/Ml 1 Ml Vial SUBCUT 01/30/19 21:59 Not Given Q8 VIDYA Hydralazine HCl 20 mg 12/31/18 21:18 Apresoline Inj/Pf 20 Mg/1 Ml Sdv IV 01/30/19 21:17 Q4HP PRN Give For Sbp > 160 / Dbp > 100 Insulin Human Regular 0 - 15 unit 12/31/18 21:18 01/01/19 14:04 Humulin R (Pyxis) Insulin 100 Unit/Ml 3ml SUBCUT 01/30/19 21:17 5 unit ACHSP PRN Administration PER PROTOCOL Protocol Lisinopril 20 mg 01/01/19 22:00 01/02/19 21:14 Prinivil 10 Mg Tablet PO 01/31/19 21:59 20 mg Q12 VIDYA Administration Magnesium Hydroxide 30 ml 12/31/18 21:11 Milk Of Magnesia 30 Ml Udcup PO 01/30/19 21:10 HSP PRN FOR CONSTIPATION Metformin HCl 500 mg 01/01/19 16:00 01/02/19 16:55 Glucophage 500 Mg Tablet PO 01/31/19 15:59 500 mg BIDACBS VIDYA Administration Metoclopramide HCl 10 mg 12/31/18 22:00 01/02/19 21:13 Reglan 10 Mg Tablet PO 01/30/19 21:59 10 mg ACHS VIDYA Administration Metoprolol Succinate 100 mg 01/01/19 10:00 01/02/19 10:33 Toprol Xl 50 Mg Tab.Sr PO 01/31/19 09:59 100 mg DAILY VIDYA Administration Nalbuphine HCl 5 mg 12/31/18 21:24 Nubain Inj 10 Mg/1 Ml Ampule IV 01/07/19 21:23 Q3HP PRN PAIN SCALE 1-3 Nalbuphine HCl 10 mg 12/31/18 21:25 Nubain Inj 10 Mg/1 Ml Ampule IV 01/07/19 21:24 Q3HP PRN PAIN SCALE 4-5 Sodium Chloride 2.5 ml 12/31/18 22:00 01/02/19 21:15 Saline Flush 2.5 Ml Monoject Prefil Syrin IV 01/30/19 21:59 Not Given Q8 VIDYA Sucralfate 1 gm 12/31/18 22:00 01/02/19 21:14 Carafate 1 Gm Tablet PO 01/30/19 21:59 1 gm ACHS VIDYA Administration Discontinued Medications Generic Name Dose Route Start Last Admin Trade Name Freq PRN Reason Stop Dose Admin Aspirin 325 mg 12/31/18 20:49 12/31/18 21:02 Aspirin 325 Mg Tablet PO 12/31/18 20:50 325 mg NOW ONE Administration Bumetanide 1 mg 01/01/19 18:00 01/02/19 10:33 Bumex Inj/Pf 1 Mg/4 Ml Sdv IV 01/31/19 17:59 1 mg Q4 VIDYA Administration Furosemide 40 mg 12/31/18 18:24 12/31/18 18:33 Lasix Inj/Pf 40 Mg/4 Ml Sdv IV 12/31/18 18:25 40 mg NOW ONE Administration Furosemide 40 mg 12/31/18 22:00 01/01/19 14:05 Lasix Inj/Pf 40 Mg/4 Ml Sdv IV 01/30/19 21:59 40 mg Q8 VIDYA Administration Losartan Potassium 50 mg 01/01/19 10:00 01/01/19 10:14 Cozaar 50 Mg Tablet PO 01/31/19 09:59 50 mg DAILY VIDYA Administration Metoprolol Tartrate 50 mg 12/31/18 22:00 12/31/18 23:07 Lopressor 50 Mg Tablet PO 12/31/18 22:01 50 mg NOW ONE Administration Nalbuphine HCl 0 mg 12/31/18 21:18 Nubain Inj 10 Mg/1 Ml Ampule IV 01/07/19 21:17 Q3H PRN FOR PAIN Protocol Nitroglycerin 0.5 gm 01/01/19 12:00 01/01/19 14:27 Nitrol 2% Ointment 1gm Packet TP 01/31/19 11:59 Not Given Q6 [facility] Labs- Entire Visit 12/31/18 12/31/18 12/31/18 17:00 17:00 17:00 WBC 7.6 RBC 4.83 Hgb 13.8 Hct 42.3 MCV 88 MCH 28.6 MCHC 32.7 RDW 14.6 H Plt Count 158 Lymph % (Auto) 24.2 Dukes % (Auto) 8.4 Eos % (Auto) 0.8 Baso % (Auto) 0.7 Absolute Neuts (auto) 5.0 Absolute Lymphs (auto) 1.8 Absolute Monos (auto) 0.6 Absolute Eos (auto) 0.1 Absolute Basos (auto) 0.1 Seg Neutrophils % 65.9 Sodium 139.5 Potassium 4.3 Chloride 107 Carbon Dioxide 21 L Anion Gap 12 BUN 20 Creatinine 1.28 H Est GFR ( Amer) > 60 Est GFR (MDRD) Non-Af 57 L Glucose 142 H POC Glucose Hemoglobin A1c % Calcium 9.5 Magnesium Total Bilirubin 1.0 Direct Bilirubin 0.4 Neonat Total Bilirubin Not Reportable Neonat Direct Bilirubin Not Reportable Neonat Indirect Bili Not Reportable AST 36 ALT 39 Alkaline Phosphatase 55 Creatine Kinase 75 CK-MB (CK-2) 1.89 Troponin I 0.064 NT-Pro-B Natriuret Pep Total Protein 6.9 Albumin 4.2 Triglycerides Cholesterol LDL Cholesterol Direct VLDL Cholesterol HDL Cholesterol Lipase 111.3 TSH Free T4 Free T3 pg/mL Urine Color Urine Appearance Urine pH Ur Specific [place] Urine Protein Urine Glucose (UA) Urine Ketones Urine Blood Urine Nitrite Urine Bilirubin Urine Urobilinogen Ur Leukocyte Esterase Urine WBC (Auto) Urine RBC (Auto) Squamous Epi Cells Auto Urine Ascorbic Acid 12/31/18 12/31/18 12/31/18 17:00 19:40 22:07 WBC RBC Hgb Hct MCV MCH MCHC RDW Plt Count Lymph % (Auto) Dukes % (Auto) Eos % (Auto) Baso % (Auto) Absolute Neuts (auto) Absolute Lymphs (auto) Absolute Monos (auto) Absolute Eos (auto) Absolute Basos (auto) Seg Neutrophils % Sodium Potassium Chloride Carbon Dioxide Anion Gap BUN Creatinine Est GFR ( Amer) Est GFR (MDRD) Non-Af Glucose POC Glucose Hemoglobin A1c % Calcium Magnesium Total Bilirubin Direct Bilirubin Neonat Total Bilirubin Neonat Direct Bilirubin Neonat Indirect Bili AST ALT Alkaline Phosphatase Creatine Kinase 73 CK-MB (CK-2) Troponin I NT-Pro-B Natriuret Pep 3240 H Total Protein Albumin Triglycerides Cholesterol LDL Cholesterol Direct VLDL Cholesterol HDL Cholesterol Lipase TSH Free T4 Free T3 pg/mL Urine Color YELLOW Urine Appearance CLEAR Urine pH 5.0 Ur Specific [place] 1.017 Urine Protein 30 H Urine Glucose (UA) NEGATIVE Urine Ketones NEGATIVE Urine Blood NEGATIVE Urine Nitrite NEGATIVE Urine Bilirubin NEGATIVE Urine Urobilinogen NEGATIVE Ur Leukocyte Esterase NEGATIVE Urine WBC (Auto) 2 Urine RBC (Auto) 1 Squamous Epi Cells Auto 1 Urine Ascorbic Acid NEGATIVE 12/31/18 12/31/18 12/31/18 22:07 22:07 22:57 WBC RBC Hgb Hct MCV MCH MCHC RDW Plt Count Lymph % (Auto) Dukes % (Auto) Eos % (Auto) Baso % (Auto) Absolute Neuts (auto) Absolute Lymphs (auto) Absolute Monos (auto) Absolute Eos (auto) Absolute Basos (auto) Seg Neutrophils % Sodium Potassium Chloride Carbon Dioxide Anion Gap BUN Creatinine Est GFR ( Amer) Est GFR (MDRD) Non-Af Glucose POC Glucose 235 H Hemoglobin A1c % Calcium Magnesium Total Bilirubin Direct Bilirubin Neonat Total Bilirubin Neonat Direct Bilirubin Neonat Indirect Bili AST ALT Alkaline Phosphatase Creatine Kinase CK-MB (CK-2) 1.76 Troponin I 0.072 NT-Pro-B Natriuret Pep Total Protein Albumin Triglycerides Cholesterol LDL Cholesterol Direct VLDL Cholesterol HDL Cholesterol Lipase TSH 3.20 Free T4 1.43 Free T3 pg/mL 3.11 Urine Color Urine Appearance Urine pH Ur Specific [place] Urine Protein Urine Glucose (UA) Urine Ketones Urine Blood Urine Nitrite Urine Bilirubin Urine Urobilinogen Ur Leukocyte Esterase Urine WBC (Auto) Urine RBC (Auto) Squamous Epi Cells Auto Urine Ascorbic Acid 01/01/19 01/01/19 01/01/19 04:17 04:17 04:17 WBC 8.7 RBC 4.93 Hgb 14.1 Hct 43.4 MCV 88 MCH 28.6 MCHC 32.4 RDW 14.9 H Plt Count 173 Lymph % (Auto) Dukes % (Auto) Eos % (Auto) Baso % (Auto) Absolute Neuts (auto) Absolute Lymphs (auto) Absolute Monos (auto) Absolute Eos (auto) Absolute Basos (auto) Seg Neutrophils % Sodium Potassium Chloride Carbon Dioxide Anion Gap BUN Creatinine Est GFR ( Amer) Est GFR (MDRD) Non-Af Glucose POC Glucose Hemoglobin A1c % Calcium Magnesium Total Bilirubin Direct Bilirubin Neonat Total Bilirubin Neonat Direct Bilirubin Neonat Indirect Bili AST ALT Alkaline Phosphatase Creatine Kinase 66 CK-MB (CK-2) 1.78 Troponin I 0.072 NT-Pro-B Natriuret Pep Total Protein Albumin Triglycerides Cholesterol LDL Cholesterol Direct VLDL Cholesterol HDL Cholesterol Lipase TSH Free T4 Free T3 pg/mL Urine Color Urine Appearance Urine pH Ur Specific [place] Urine Protein Urine Glucose (UA) Urine Ketones Urine Blood Urine Nitrite Urine Bilirubin Urine Urobilinogen Ur Leukocyte Esterase Urine WBC (Auto) Urine RBC (Auto) Squamous Epi Cells Auto Urine Ascorbic Acid 01/01/19 01/01/19 01/01/19 04:17 04:17 08:02 WBC RBC Hgb Hct MCV MCH MCHC RDW Plt Count Lymph % (Auto) Dukes % (Auto) Eos % (Auto) Baso % (Auto) Absolute Neuts (auto) Absolute Lymphs (auto) Absolute Monos (auto) Absolute Eos (auto) Absolute Basos (auto) Seg Neutrophils % Sodium 140.3 Potassium 4.5 Chloride 102 Carbon Dioxide 23 Anion Gap 15 BUN 25 H Creatinine 1.44 H Est GFR ( Amer) > 60 Est GFR (MDRD) Non-Af 50 L Glucose 130 H POC Glucose 132 H Hemoglobin A1c % 7.3 H Calcium 9.4 Magnesium 2.3 Total Bilirubin Direct Bilirubin Neonat Total Bilirubin Neonat Direct Bilirubin Neonat Indirect Bili AST ALT Alkaline Phosphatase Creatine Kinase CK-MB (CK-2) Troponin I NT-Pro-B Natriuret Pep Total Protein Albumin Triglycerides 123 Cholesterol 143.07 LDL Cholesterol Direct 104 H VLDL Cholesterol 25.0 HDL Cholesterol 29 L Lipase TSH Free T4 Free T3 pg/mL Urine Color Urine Appearance Urine pH Ur Specific [place] Urine Protein Urine Glucose (UA) Urine Ketones Urine Blood Urine Nitrite Urine Bilirubin Urine Urobilinogen Ur Leukocyte Esterase Urine WBC (Auto) Urine RBC (Auto) Squamous Epi Cells Auto Urine Ascorbic Acid 01/01/19 01/01/19 01/01/19 10:13 10:13 11:49 WBC RBC Hgb Hct MCV MCH MCHC RDW Plt Count Lymph % (Auto) Dukes % (Auto) Eos % (Auto) Baso % (Auto) Absolute Neuts (auto) Absolute Lymphs (auto) Absolute Monos (auto) Absolute Eos (auto) Absolute Basos (auto) Seg Neutrophils % Sodium Potassium Chloride Carbon Dioxide Anion Gap BUN Creatinine Est GFR ( Amer) Est GFR (MDRD) Non-Af Glucose POC Glucose 205 H Hemoglobin A1c % Calcium Magnesium Total Bilirubin Direct Bilirubin Neonat Total Bilirubin Neonat Direct Bilirubin Neonat Indirect Bili AST ALT Alkaline Phosphatase Creatine Kinase 67 CK-MB (CK-2) 1.72 Troponin I 0.054 NT-Pro-B Natriuret Pep Total Protein Albumin Triglycerides Cholesterol LDL Cholesterol Direct VLDL Cholesterol HDL Cholesterol Lipase TSH Free T4 Free T3 pg/mL Urine Color Urine Appearance Urine pH Ur Specific [place] Urine Protein Urine Glucose (UA) Urine Ketones Urine Blood Urine Nitrite Urine Bilirubin Urine Urobilinogen Ur Leukocyte Esterase Urine WBC (Auto) Urine RBC (Auto) Squamous Epi Cells Auto Urine Ascorbic Acid 01/01/19 01/01/19 15:10 21:21 WBC RBC Hgb Hct MCV MCH MCHC RDW Plt Count Lymph % (Auto) Dukes % (Auto) Eos % (Auto) Baso % (Auto) Absolute Neuts (auto) Absolute Lymphs (auto) Absolute Monos (auto) Absolute Eos (auto) Absolute Basos (auto) Seg Neutrophils % Sodium Potassium Chloride Carbon Dioxide Anion Gap BUN Creatinine Est GFR ( Amer) Est GFR (MDRD) Non-Af Glucose POC Glucose 201 H 136 H Hemoglobin A1c % Calcium Magnesium Total Bilirubin Direct Bilirubin Neonat Total Bilirubin Neonat Direct Bilirubin Neonat Indirect Bili AST ALT Alkaline Phosphatase Creatine Kinase CK-MB (CK-2) Troponin I NT-Pro-B Natriuret Pep Total Protein Albumin Triglycerides Cholesterol LDL Cholesterol Direct VLDL Cholesterol HDL Cholesterol Lipase TSH Free T4 Free T3 pg/mL Urine Color Urine Appearance Urine pH Ur Specific [place] Urine Protein Urine Glucose (UA) Urine Ketones Urine Blood Urine Nitrite Urine Bilirubin Urine Urobilinogen Ur Leukocyte Esterase Urine WBC (Auto) Urine RBC (Auto) Squamous Epi Cells Auto Urine Ascorbic Acid Chest X-Ray 12/31/18 16:35 IMPRESSION: Cardiomegaly. No acute findings in the chest. Venous Doppler Study 12/31/18 18:06 IMPRESSION: No evidence of deep venous thrombosis in the right lower extremity. Chest/Abdomen CTA 12/31/18 18:08 IMPRESSION: 1. No pulmonary emboli. 2. Grossly stable mediastinal and hilar adenopathy. ECHOCARDIOGRAM.: The patient's LV ejection fraction is severely reduced less than 15%. The left ventricle is dilated. The patient also has moderate only hypertension. He has significant TR and MR. . SINUS TACHYCARDIA [PLAA] . PROBABLE LEFT ATRIAL ABNORMALITY [NIVCD] . NONSPECIFIC INTRAVENTRICULAR CONDUCTION DELAY [LVH1] . LEFT VENTRICULAR HYPERTROPHY IMPRESSION/RECOMMENDATION: 1. Acute on chronic biventricular systolic heart failure there is acute on chronic left ventricular systolic and right ventricle systolic heart failure secondary to cardiomyopathy continue patient on Toprol XL. Agree with stopping the patient's IV Bumex and continue IV Lasix . We will change the patient's Cozaar to lisinopril, since the patient could not afford to buy medications at home and hence is unlikely to afford Cozaar. 2. Cardiomyopathy with severely reduced LV ejection fraction. Treatment as per gold standard guidelines for cardiomyopathy/CHF. In view of the patient's nonsustained ventricular tachycardia and severely reduced ejection fraction we will get the patient to wear a LifeVest, until the need for an AICD is decided upon in 3 to 4 months after repeat echocardiogram. The plan has been discussed with the patient to repeat an echo in 3 months and if the LV ejection fraction is 35% or below then the patient will require an AICD. Also need to make sure that the patient has no underlying coronary artery disease contributing to the patient's cardiomyopathy. Later would recommend getting an IV Lexiscan Cardiolite stress test. 3. Hypertension: Blood pressure now well controlled. 4. Moderate pulmonary hypertension: Diabetes mellitus: Continue Accu-Cheks and current antidiabetic medication. 5. Asymptomatic nonsustained ventricular tachycardia episodes lifejacket has been ordered. X. Diabetes mellitus: Start the patient on antidiabetic treatment, and serial Accu-Cheks. Medications reviewed. Medications adjusted. Management plan and medication treatment discussed with attending provider on the case. Medical decision making is of high complexity. 40 minutes spent on this patient with more than 50% of time spent in direct patient care. Will follow. Prescription for LifeVest faxed to his [facility] [place].
--- NOTE | 2019-01-01 23:49 | XCELERA REPORT ---
[address] [address] Transthoracic Echocardiogram Report Name: SARA HOLLIDAY Age: 63 yrs Gender: Male : 1955 Patient Status: Inpatient Patient Location: [address] [place] [address] Study Date: 01/01/2019 11:08 AM Height: 64 in Weight: 222 lb BSA: 2.0 m2 Procedure: A two-dimensional transthoracic echocardiogram with color flow and Doppler was performed. Study Quality: Fair. Reason For Study: CHF History: CHF. Ordering Physician: JESSICA SCHMIDT Performed By: Ginny Diaz Interpretation Summary The left ventricle is severely dilated. There is normal left ventricular wall thickness. LV EF is Less than 15% Left ventricular systolic function is severely reduced. There is disastolic dysfuction by tissue doppler There is severe global hypokinesis of the left ventricle. There is no thrombus. Cannot assess ASD ,VSD , or PFO. The right ventricle is not well visualized secondary to technical limitations Suspect significant RV enlargement with significantly reduced RV systolic function. The right atrium is moderately dilated. The left atrium is moderately dilated. There is no evidence of mitral valve prolapse. There is no vegetation seen on the mitral valve. There is no mitral valve stenosis. There is a moderate amount of mitral regurgitation There is no aortic valvular vegetation. There is no aortic valve stenosis There is aortic sclerosis without aortic stenosis. There is no LVOT obstruction. No aortic regurgitation is present. There is no tricuspid stenosis. There is a moderate amount of tricuspid regurgitation There is at least moderate pulmonary hypertension.RVSP is at least 57 mm of Hg , with a RA mean > than 20. There is no pulmonic valvular stenosis. There is a mild amount of pulmonic regurgitation The aortic root is normal size. The inferior vena cava appeared dilated and did not change with respiration (RAP > 20 mmHg) There is no pericardial effusion. MMode/2D Measurements & Calculations RVDd: 5.0 cm LVIDd: 7.2 cm FS: 9.3 % Ao root diam: 3.4 cm IVSd: 0.74 cm LVIDs: 6.6 cm EDV(Teich): LVPWd: 0.94 cm 275.1 ml Ao root area: ESV(Teich): 8.8 cm2 220.8 ml EF(Teich): 19.8 % EDV(MOD-sp4): SV(MOD-sp4): 200.7 ml 40.8 ml ESV(MOD-sp4): 160.0 ml EF(MOD-sp4): 20.3 % Doppler Measurements & Calculations MV E max jey: MV dec slope: Ao V2 max: LV V1 max P.2 cm/sec 51.1 cm/sec 0.91 mmHg MV A max jey: 798.6 cm/sec2 Ao max P.0 mmHgLV V1 max: 20.7 cm/sec MV dec time: 0.11 sec 47.8 cm/sec MV E/A: 4.1 PA V2 max: PI end-d jey: TR max jey: 39.9 cm/sec 91.5 cm/sec 302.0 cm/sec PA max PG: TR max P.64 mmHg 36.9 mmHg Left Ventricle The left ventricle is severely dilated. There is normal left ventricular wall thickness. LV EF is Less than 15%. Left ventricular systolic function is severely reduced. There is disastolic dysfuction by tissue doppler. There is severe global hypokinesis of the left ventricle. There is no thrombus. Cannot assess ASD ,VSD , or PFO. Right Ventricle The right ventricle is not well visualized secondary to technical limitations. Suspect significant RV enlargement with significantly reduced RV systolic function. Atria The right atrium is moderately dilated. The left atrium is moderately dilated. Mitral Valve There is no evidence of mitral valve prolapse. There is no vegetation seen on the mitral valve. There is no mitral valve stenosis. There is a moderate amount of mitral regurgitation. Aortic Valve There is no aortic valvular vegetation. There is no aortic valve stenosis. There is aortic sclerosis without aortic stenosis. There is no LVOT obstruction. No aortic regurgitation is present. Tricuspid Valve There is no tricuspid stenosis. There is a moderate amount of tricuspid regurgitation. There is at least moderate pulmonary hypertension.RVSP is at least 57 mm of Hg , with a RA mean > than 20. Pulmonic Valve There is no pulmonic valvular stenosis. There is a mild amount of pulmonic regurgitation. Great Vessels The aortic root is normal size. The inferior vena cava appeared dilated and did not change with respiration (RAP > 20 mmHg). Effusions There is no pericardial effusion. : JESSICA SCHMIDT, Jessica
[2019-01-02] MEDS: BUMETANIDE INJ/PF 1 MG/4 ML SDV IV SCH ×3 (02:59→10:33)
[2019-01-02 04:55] LABS: ANION GAP 16 (5-19); BLOOD UREA NITROGEN 34 mg/dL (7-20); CALCIUM 8.7 mg/dL (8.4-10.2); CARBON DIOXIDE 22 mmol/L (22-30); CHLORIDE 99 mmol/L (98-107); GLUCOSE 109 mg/dL (75-110); POTASSIUM 3.9 mmol/L (3.6-5.0)
[2019-01-02 04:59] LABS: HEMOGLOBIN 14.2 g/dL (13.5-17.0); MEAN CORPUSCULAR HEMOGLOBIN 28.4 pg (27.0-33.4); MEAN CORPUSCULAR HGB CONC 32.4 g/dL (32.0-36.0); MEAN CORPUSCULAR VOLUME 88 fl (80-97); PLATELET COUNT 139 10^3/uL (150-450); RED BLOOD COUNT 5.02 10^6/uL (4.35-5.55); RED CELL DISTRIBUTION WIDTH 14.6 % (11.5-14.0); WHITE BLOOD COUNT 8.3 10^3/uL (4.0-10.5)
[2019-01-02] MEDS: HEPARIN SOD (PORCINE) 5,000 UNIT/ML 1 ML VIAL SUBCUT SCH ×3 (06:06→21:14)
[2019-01-02] MEDS: SUCRALFATE 1 GM TABLET PO SCH ×4 (08:22→21:14)
[2019-01-02] MEDS: FAMOTIDINE 20 MG TABLET PO SCH ×4 (08:22→21:14)
[2019-01-02] MEDS: METOCLOPRAMIDE HCL 10 MG TABLET PO SCH ×4 (08:22→21:13)
[2019-01-02] MEDS: METFORMIN HCL 500 MG TABLET PO SCH ×2 (08:23→16:55)
[2019-01-02] MEDS: DOCUSATE SODIUM 100 MG CAPSULE PO SCH ×2 (10:21→17:12)
[2019-01-02] MEDS: LISINOPRIL 10 MG TABLET PO SCH ×2 (10:32→21:14)
[2019-01-02] MEDS: METOPROLOL SUCCINATE 50 MG TAB.SR.24H PO SCH (10:33)
--- NOTE | 2019-01-02 11:36 | PDOC PROGRESS REPORT ---
Subjective Progress Note for:: 01/02/19 Subjective:: Patient sitting on edge of bed stating he feels much better he is able to regulate his breath, denies chest pain nausea vomiting. No telemetry events. Echocardiogram reviewed with patient. Reason For Visit: ACUTE ON CHRONIC CONGESTIVE HEART FAILURE Physical Exam Vital Signs: Temp Pulse Resp BP Pulse Ox 98.1 F 71 17 123/88 H 100 01/02/19 07:39 01/02/19 07:39 01/02/19 07:39 01/02/19 07:39 01/02/19 07:39 Intake & Output 12/31/18 01/01/19 01/02/19 11:59 11:59 11:59 Output Total 1050 Balance -1050 Weight 100.9 kg 98.7 kg General appearance: PRESENT: no acute distress, well-developed, well-nourished Head exam: PRESENT: atraumatic, normocephalic Eye exam: PRESENT: conjunctiva pink, EOMI, PERRLA. ABSENT: scleral icterus Ear exam: PRESENT: normal external ear exam Mouth exam: PRESENT: moist, tongue midline Neck exam: ABSENT: carotid bruit, JVD, lymphadenopathy, thyromegaly Respiratory exam: PRESENT: clear to auscultation moriah. ABSENT: rales, rhonchi, wheezes Cardiovascular exam: PRESENT: gallop, RRR, +S1, +S2. ABSENT: diastolic murmur, rubs Pulses: PRESENT: normal dorsalis pedis pul Vascular exam: PRESENT: normal capillary refill GI/Abdominal exam: PRESENT: normal bowel sounds, soft. ABSENT: distended, guarding, mass, organolmegaly, rebound, tenderness Rectal exam: PRESENT: deferred Extremities exam: PRESENT: full ROM, +1 edema. ABSENT: calf tenderness, clubbing, pedal edema Neurological exam: PRESENT: alert, awake, oriented to person, oriented to place, oriented to time, oriented to situation, CN II-XII grossly intact. ABSENT: motor sensory deficit Psychiatric exam: PRESENT: appropriate affect, normal mood. ABSENT: homicidal ideation, suicidal ideation Skin exam: PRESENT: dry, intact, warm. ABSENT: cyanosis, rash Results Laboratory Results: 01/02/19 04:09 01/02/19 04:09 01/02/19 01/02/19 04:09 04:09 WBC 8.3 RBC 5.02 Hgb 14.2 Hct 44.0 MCV 88 MCH 28.4 MCHC 32.4 RDW 14.6 H Plt Count 139 L Sodium 137.1 Potassium 3.9 Chloride 99 Carbon Dioxide 22 Anion Gap 16 BUN 34 H Creatinine 1.75 H Est GFR ( Amer) 48 L Glucose 109 Calcium 8.7 Magnesium 2.0 12/31/18 12/31/18 12/31/18 17:00 17:00 17:00 Creatine Kinase 75 CK-MB (CK-2) 1.89 Troponin I 0.064 NT-Pro-B Natriuret Pep 3240 H 12/31/18 12/31/18 01/01/19 22:07 22:07 04:17 Creatine Kinase 73 66 CK-MB (CK-2) 1.76 Troponin I 0.072 NT-Pro-B Natriuret Pep 01/01/19 01/01/19 01/01/19 04:17 10:13 10:13 Creatine Kinase 67 CK-MB (CK-2) 1.78 1.72 Troponin I 0.072 0.054 NT-Pro-B Natriuret Pep Impressions: Chest X-Ray 12/31/18 16:35 IMPRESSION: Cardiomegaly. No acute findings in the chest. Venous Doppler Study 12/31/18 18:06 IMPRESSION: No evidence of deep venous thrombosis in the right lower extremity. Chest/Abdomen CTA 12/31/18 18:08 IMPRESSION: 1. No pulmonary emboli. 2. Grossly stable mediastinal and hilar adenopathy. Assessment and Plan - Diagnosis (1) Congestive heart failure Qualifiers: Heart failure type: unspecified Heart failure chronicity: acute on chronic Qualified Code(s): I50.9 - Heart failure, unspecified Is this a current diagnosis for this admission?: Yes Plan: Ejection fraction 50%, unclear underlying pathology, currently compensated, awaiting LifeVest. (2) Diabetes mellitus type 2 in obese Is this a current diagnosis for this admission?: Yes Plan: Initially the patient placed on a diabetic diet and will use AC and at bedtime Accu-Cheks to assess his diabetic control. Blood sugar greatly improved (3) Acute renal failure Is this a current diagnosis for this admission?: Yes Plan: Multifactorial secondary to prerenal azotemia and poor cardiac output. Reduce loop diuretic, reevaluate chemistry. - Time Time Spent with patient: 25-34 minutes - Inpatient Certification Medical Necessity: Need Close Monitoring Due to Risk of Patient Decompensation
--- NOTE | 2019-01-02 20:05 | Progress Note ---
Provider Note Provider Note: CARDIOLOGY PROGRESS NOTE by Dr. Jessica Oden on 01/02/2019. SUBJECTIVE: The patient states his shortness of breath is improved. He still has orthopnea. There is no PND. There is still some nonsustained ventricular tachycardia on the monitor, with the patient being asymptomatic. These are less frequent than before. There is no dizziness or palpitations or syncope. There is no chest pain or discomfort. There is no TIA CVA symptoms. PHYSICAL EXAMINATION: The patient is moderately obese. In no acute distress. He is well-groomed. Selected Entries 01/02/19 11:42 Temperature 98.4 F Temperature Oral Source Pulse Rate 70 Respiratory 16 Rate Blood Pressure 115/78 Blood Pressure 90 Mean BP Location Right Arm BP Position Supine O2 Sat by Pulse 100 Oximetry Oxygen Flow 3.00 Rate Oxygen Delivery Nasal Cannula Method HEAD: Is atraumatic normocephalic. EYES: Pupils equal round regular reactive to light accommodation. Extraocular movements are normal. There is no conjunctival pallor. There is no scleral icterus. NOSE: There is no deviated nasal septum. There is no inflammation of the nasal mucous membrane. MOUTH: Mucous memories of the mouth are moist. Tongue is moist. There is no ulcers. There is no bleeding from the gums. THROAT: There is no redness of the oropharynx. There is no exudates. SKIN: There is no skin rashes or skin lesions. There is no ecchymosis or petechiae. NECK: Is supple. There is mild JVD still present. Carotids are equal there is no bruit there is no lymphadenopathy. There is no goiter. There is no accessory muscle respiration use. There is no chest wall tenderness. Trachea central. LUNGS: Shows a few bibasilar fine rales of CHF. There is no rhonchi or wheezing. HEART: S1-S2 is heard. S1 is of normal intensity. There is no S3 gallop. There is no S4 gallop. There is murmur of mitral regurgitation and tricuspid regurgitation present. There is aortic sclerosis murmur. There is no rub. ABDOMEN: Soft. Mildly obese. Nontender. There is no hepatospleno megaly. Bowel sounds are well heard. EXTREMITIES: Femorals are deep. Femorals of slightly diminished. There is no femoral bruits. Leg pulses are well felt. There is trace pedal edema bilaterally. There is no DVT or cellulitis. There is no calf tenderness. 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 PSYCHIATRIC: The patient judgment insight are intact his affect is normal. Intake output is not accurate. Labs- All tests 24 hr 01/01/19 01/02/19 01/02/19 21:21 04:09 04:09 WBC 8.3 RBC 5.02 Hgb 14.2 Hct 44.0 MCV 88 MCH 28.4 MCHC 32.4 RDW 14.6 H Plt Count 139 L Sodium 137.1 Potassium 3.9 Chloride 99 Carbon Dioxide 22 Anion Gap 16 BUN 34 H Creatinine 1.75 H Est GFR ( Amer) 48 L Est GFR (MDRD) Non-Af 40 L Glucose 109 POC Glucose 136 H Calcium 8.7 Magnesium 2.0 01/02/19 01/02/19 01/02/19 07:43 11:46 15:34 WBC RBC Hgb Hct MCV MCH MCHC RDW Plt Count Sodium Potassium Chloride Carbon Dioxide Anion Gap BUN Creatinine Est GFR ( Amer) Est GFR (MDRD) Non-Af Glucose POC Glucose 94 125 H 157 H Calcium Magnesium Chest X-Ray 12/31/18 16:35 IMPRESSION: Cardiomegaly. No acute findings in the chest. Venous Doppler Study 12/31/18 18:06 IMPRESSION: No evidence of deep venous thrombosis in the right lower extremity. Chest/Abdomen CTA 12/31/18 18:08 IMPRESSION: 1. No pulmonary emboli. 2. Grossly stable mediastinal and hilar adenopathy. IMPRESSION/RECOMMENDATION: 1. Acute on chronic biventricular systolic heart failure there is acute on chronic left ventricular systolic and right ventricle systolic heart failure secondary to cardiomyopathy continue patient on Toprol XL. Agree with stopping the patient's IV Bumex and converting it to p.o. Lasix in view of the patient's deteriorating renal function. Continue the patient on CATHI inhibitor. 2. Cardiomyopathy with severely reduced LV ejection fraction. Treatment as per gold standard guidelines for cardiomyopathy/CHF the plan has been discussed with the patient to repeat an echo in 3 months and if the LV ejection fraction is 35% or below then the patient will require an AICD. Also need to make sure that the patient has no underlying coronary artery disease contributing to the patient's cardiomyopathy. Later as an outpatient would recommend getting an IV Lexiscan Cardiolite stress test. 3. Hypertension: Blood pressure now well controlled. 4. Acute renal insufficiency: Possibly secondary to hepatorenal syndrome and secondary to possibly overdiuresis. Note the patient's IV Bumex has been discontinued and the patient to p.o. Lasix. If renal function continues to deteriorate and the patient may need inotropic support. 5. Moderate pulmonary hypertension: Most likely secondary to left heart failure causing right heart failure. But later would recommend the patient have a sleep study to make sure the patient does not have sleep apnea, since the patient is obese. 6. Diabetes mellitus: Continue Accu-Cheks and current antidiabetic medication. 7. Asymptomatic nonsustained ventricular tachycardia episodes lifejacket has been ordered Medications reviewed. Medications adjusted. Management plan and medication treatment discussed with attending provider on the case. Medical decision making is of high complexity. 40 minutes spent on this patient with more than 50% of time spent in direct patient care. Will follow.
[2019-01-02] MEDS: INSULIN REG, HUMAN 100 UNIT/ML 3 ML VIAL (PYX) SUBCUT PRN (22:13)
[2019-01-02] MEDS ORDERED: MELATONIN 3 MG TABLET PO PRN (22:44)
[2019-01-02 23:57] LABS: 24 HOUR URINE PROTEIN RESULT 350 mg/day (42-225); URINE PROTEIN 14.6 mg/dL (<12)
[2019-01-03 04:49] LABS: HEMATOCRIT 42.5 % (37.9-51.0); HEMOGLOBIN 13.6 g/dL (13.5-17.0); MEAN CORPUSCULAR HEMOGLOBIN 28.1 pg (27.0-33.4); MEAN CORPUSCULAR HGB CONC 32.1 g/dL (32.0-36.0); MEAN CORPUSCULAR VOLUME 87 fl (80-97); PLATELET COUNT 154 10^3/uL (150-450); RED BLOOD COUNT 4.87 10^6/uL (4.35-5.55); RED CELL DISTRIBUTION WIDTH 14.5 % (11.5-14.0); WHITE BLOOD COUNT 8.2 10^3/uL (4.0-10.5)
[2019-01-03 04:56] LABS: ANION GAP 12 (5-19); BLOOD UREA NITROGEN 39 mg/dL (7-20); CALCIUM 8.7 mg/dL (8.4-10.2); CARBON DIOXIDE 25 mmol/L (22-30); CHLORIDE 100 mmol/L (98-107); GLUCOSE 120 mg/dL (75-110); POTASSIUM 3.8 mmol/L (3.6-5.0)
[2019-01-03] MEDS: HEPARIN SOD (PORCINE) 5,000 UNIT/ML 1 ML VIAL SUBCUT SCH ×3 (05:01→21:39)
[2019-01-03] MEDS: METFORMIN HCL 500 MG TABLET PO SCH ×2 (08:41→15:06)
[2019-01-03] MEDS: SUCRALFATE 1 GM TABLET PO SCH ×4 (08:41→21:42)
[2019-01-03] MEDS: METOCLOPRAMIDE HCL 10 MG TABLET PO SCH ×4 (08:41→21:42)
[2019-01-03] MEDS: FAMOTIDINE 20 MG TABLET PO SCH ×4 (08:41→21:42)
--- NOTE | 2019-01-03 09:23 | PDOC PROGRESS REPORT ---
Subjective Progress Note for:: 01/03/19 Subjective:: Patient sitting in bedside chair stating he feels much better he is able to regulate his breath, denies chest pain nausea vomiting or shortness of breath. No telemetry events. Echocardiogram reviewed with patient. Patient awaiting LifeVest. Discussed with discharge planning and cardiology Reason For Visit: ACUTE ON CHRONIC CONGESTIVE HEART FAILURE Physical Exam Vital Signs: Temp Pulse Resp BP Pulse Ox 97.4 F 51 L 23 H 127/75 H 100 01/03/19 03:56 01/03/19 07:00 01/03/19 03:56 01/03/19 03:56 01/03/19 03:56 Intake & Output 01/01/19 01/02/19 01/03/19 11:59 11:59 11:59 Intake Total 720 Output Total 1050 Balance -1050 720 Weight 100.9 kg 98.7 kg General appearance: PRESENT: no acute distress, well-developed, well-nourished Head exam: PRESENT: atraumatic, normocephalic Eye exam: PRESENT: conjunctiva pink, EOMI, PERRLA. ABSENT: scleral icterus Ear exam: PRESENT: normal external ear exam Mouth exam: PRESENT: moist, tongue midline Neck exam: ABSENT: carotid bruit, JVD, lymphadenopathy, thyromegaly Respiratory exam: PRESENT: crackles. ABSENT: rales, rhonchi, wheezes Cardiovascular exam: PRESENT: RRR, +S1, +S2. ABSENT: diastolic murmur, gallop, rubs, systolic murmur, tachycardia Pulses: PRESENT: normal dorsalis pedis pul Vascular exam: PRESENT: normal capillary refill GI/Abdominal exam: PRESENT: normal bowel sounds, soft. ABSENT: distended, guarding, mass, organolmegaly, rebound, tenderness Rectal exam: PRESENT: deferred Extremities exam: PRESENT: full ROM, +1 edema. ABSENT: calf tenderness, clubbing, pedal edema Neurological exam: PRESENT: alert, awake, oriented to person, oriented to place, oriented to time, oriented to situation, CN II-XII grossly intact. ABSENT: motor sensory deficit Psychiatric exam: PRESENT: appropriate affect, normal mood. ABSENT: homicidal ideation, suicidal ideation Skin exam: PRESENT: dry, intact, warm. ABSENT: cyanosis, rash Results Laboratory Results: 01/03/19 04:06 01/03/19 04:06 01/02/19 01/03/19 01/03/19 23:00 04:06 04:06 WBC 8.2 RBC 4.87 Hgb 13.6 Hct 42.5 MCV 87 MCH 28.1 MCHC 32.1 RDW 14.5 H Plt Count 154 Sodium 137.0 Potassium 3.8 Chloride 100 Carbon Dioxide 25 Anion Gap 12 BUN 39 H Creatinine 1.86 H Est GFR ( Amer) 45 L Glucose 120 H Calcium 8.7 Magnesium 2.2 Ur 24 Hour Volume 2400 Ur Total Protein 24 Hr 350 H 12/31/18 12/31/18 12/31/18 17:00 17:00 17:00 Creatine Kinase 75 CK-MB (CK-2) 1.89 Troponin I 0.064 NT-Pro-B Natriuret Pep 3240 H 12/31/18 12/31/18 01/01/19 22:07 22:07 04:17 Creatine Kinase 73 66 CK-MB (CK-2) 1.76 Troponin I 0.072 NT-Pro-B Natriuret Pep 01/01/19 01/01/19 01/01/19 04:17 10:13 10:13 Creatine Kinase 67 CK-MB (CK-2) 1.78 1.72 Troponin I 0.072 0.054 NT-Pro-B Natriuret Pep Impressions: Chest X-Ray 12/31/18 16:35 IMPRESSION: Cardiomegaly. No acute findings in the chest. Venous Doppler Study 12/31/18 18:06 IMPRESSION: No evidence of deep venous thrombosis in the right lower extremity. Chest/Abdomen CTA 12/31/18 18:08 IMPRESSION: 1. No pulmonary emboli. 2. Grossly stable mediastinal and hilar adenopathy. Assessment and Plan - Diagnosis (1) Congestive heart failure Qualifiers: Heart failure type: unspecified Heart failure chronicity: acute on chronic Qualified Code(s): I50.9 - Heart failure, unspecified Is this a current diagnosis for this admission?: Yes (2) Diabetes mellitus type 2 in obese Is this a current diagnosis for this admission?: Yes Plan: Initially the patient placed on a diabetic diet and will use AC and at bedtime Accu-Cheks to assess his diabetic control. Blood sugar greatly improved without hypoglycemic events (3) Acute renal failure Is this a current diagnosis for this admission?: Yes Plan: Multifactorial secondary to prerenal azotemia, persistent uncontrolled hypertension, diabetes, and poor cardiac output. Reduce loop diuretic yesterday however no improvement overnight will hold diuretics. Follow-up a.m. chemistry. - Time Time Spent with patient: 25-34 minutes - Inpatient Certification Medical Necessity: Need Close Monitoring Due to Risk of Patient Decompensation
[2019-01-03] MEDS ORDERED: FUROSEMIDE 40 MG TABLET PO SCH (10:00)
[2019-01-03] MEDS: DOCUSATE SODIUM 100 MG CAPSULE PO SCH ×2 (10:19→17:43)
[2019-01-03] MEDS: LISINOPRIL 10 MG TABLET PO SCH ×2 (10:21→21:42)
[2019-01-03] MEDS: METOPROLOL SUCCINATE 50 MG TAB.SR.24H PO SCH (10:21)
[2019-01-03] MEDS: LORAZEPAM 1 MG TABLET PO PRN (15:06)
--- NOTE | 2019-01-03 21:53 | Progress Note ---
Provider Note Provider Note: CARDIOLOGY PROGRESS NOTE by Dr. Jessica Oden on 9. SUBJECTIVE: The patient complains of shortness breath, but his lungs are clear. He does not seem to be in acute CHF. The patient appears to be anxious and probably is having a panic attack. The patient has no PND and his leg edema is much improved. There is only trace leg edema. There is no chest pain or discomfort. There is no further ventricular arrhythmia seen on the monitor. The patient will be fitted with a LifeVest today. All physical EXAMINATION: The patient is moderately obese. In no acute distress Selected Entries 01/03/19 10:47 Temperature 97.4 F Temperature Oral Source Respiratory 16 Rate Blood Pressure 128/73 H Blood Pressure 91 Mean BP Location Right Arm BP Position Sitting O2 Sat by Pulse 97 Oximetry Oxygen Delivery Room Air Method HEAD: Is atraumatic normocephalic. EYES: Pupils equal round regular reactive to light accommodation. Extraocular movements are normal. There is no conjunctival pallor. There is no scleral icterus. NOSE: There is no deviated nasal septum. There is no inflammation of the nasal mucous membrane. MOUTH: Mucous memories of the mouth are moist. Tongue is moist. There is no ulcers. There is no bleeding from the gums. THROAT: There is no redness of the oropharynx. There is no exudates. SKIN: There is no skin rashes or skin lesions. There is no ecchymosis or petechiae. NECK: Is supple. There is mild JVD still present. Carotids are equal there is no bruit there is no lymphadenopathy. There is no goiter. There is no accessory muscle respiration use. There is no chest wall tenderness. Trachea central. LUNGS: Shows a few bibasilar fine rales of CHF. There is no rhonchi or wheezing. HEART: S1-S2 is heard. S1 is of normal intensity. There is no S3 gallop. There is no S4 gallop. There is murmur of mitral regurgitation and tricuspid regurgitation present. There is aortic sclerosis murmur. There is no rub. ABDOMEN: Soft. Mildly obese. Nontender. There is no hepatospleno megaly. Bowel sounds are well heard. EXTREMITIES: Femorals are deep. Femorals of slightly diminished. There is no femoral bruits. Leg pulses are well felt. There is trace pedal edema bilaterally. There is no DVT or cellulitis. There is no calf tenderness. 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 PSYCHIATRIC: The patient judgment insight are intact his affect is normal. Labs- All tests 24 hr 01/02/19 01/03/19 01/03/19 23:00 04:06 04:06 WBC 8.2 RBC 4.87 Hgb 13.6 Hct 42.5 MCV 87 MCH 28.1 MCHC 32.1 RDW 14.5 H Plt Count 154 Sodium 137.0 Potassium 3.8 Chloride 100 Carbon Dioxide 25 Anion Gap 12 BUN 39 H Creatinine 1.86 H Est GFR ( Amer) 45 L Est GFR (MDRD) Non-Af 37 L Glucose 120 H POC Glucose Calcium 8.7 Magnesium 2.2 Ur 24 Hour Volume 2400 Ur Total Protein 24 Hr 350 H Urine Total Protein 14.6 H 01/03/19 01/03/19 01/03/19 08:29 10:48 15:36 WBC RBC Hgb Hct MCV MCH MCHC RDW Plt Count Sodium Potassium Chloride Carbon Dioxide Anion Gap BUN Creatinine Est GFR ( Amer) Est GFR (MDRD) Non-Af Glucose POC Glucose 93 153 H 184 H Calcium Magnesium Ur 24 Hour Volume Ur Total Protein 24 Hr Urine Total Protein 01/03/19 21:08 WBC RBC Hgb Hct MCV MCH MCHC RDW Plt Count Sodium Potassium Chloride Carbon Dioxide Anion Gap BUN Creatinine Est GFR ( Amer) Est GFR (MDRD) Non-Af Glucose POC Glucose 132 H Calcium Magnesium Ur 24 Hour Volume Ur Total Protein 24 Hr Urine Total Protein Chest X-Ray 12/31/18 16:35 IMPRESSION: Cardiomegaly. No acute findings in the chest. Venous Doppler Study 12/31/18 18:06 IMPRESSION: No evidence of deep venous thrombosis in the right lower extremity. Chest/Abdomen CTA 12/31/18 18:08 IMPRESSION: 1. No pulmonary emboli. 2. Grossly stable mediastinal and hilar adenopathy. The patient's 24-hour intake is 700 ml, and output is 600 mL. IMPRESSION/RECOMMENDATION: 1. Acute on chronic biventricular systolic heart failure there is acute on chronic left ventricular systolic and right ventricle systolic heart failure secondary to cardiomyopathy continue patient on Toprol XL. Agree with stopping the patient's IV Bumex and converting it to p.o. Lasix in view of the patient's deteriorating renal function. Continue the patient on CATHI inhibitor. 2. Cardiomyopathy with severely reduced LV ejection fraction. Treatment as per gold standard guidelines for cardiomyopathy/CHF the plan has been discussed with the patient to repeat an echo in 3 months and if the LV ejection fraction is 35% or below then the patient will require an AICD. Also need to make sure that the patient has no underlying coronary artery disease contributing to the patient's cardiomyopathy. Later as an outpatient would recommend getting an IV Lexiscan Cardiolite stress test. 3. Hypertension: Blood pressure now well controlled. 4. Acute renal insufficiency: Possibly secondary to hepatorenal syndrome and secondary to possibly overdiuresis. Note the patient's IV Bumex has been discontinued and the patient to p.o. Lasix. Note that the patient's renal function has worsened. If renal function continues to deteriorate and the patient may need inotropic support. 5. Moderate pulmonary hypertension: Most likely secondary to left heart failure causing right heart failure. But later would recommend the patient have a sleep study to make sure the patient does not have sleep apnea, since the patient is obese. 6. Diabetes mellitus: Continue Accu-Cheks and current antidiabetic medication. 7. ANXIETY: Patient possibly having a panic attack. Will give the patient Xanax. 8. Asymptomatic nonsustained ventricular tachycardia episodes no further nonsustained ventricular tachycardia episodes. Medications reviewed. Medications added. Management plan and medication regimen discussed with attending provider on the case. Medical decision making is of high complexity. 40 minutes spent on this patient more than 50% of time spent in direct patient care. Will follow.
[2019-01-04] MEDS: HEPARIN SOD (PORCINE) 5,000 UNIT/ML 1 ML VIAL SUBCUT SCH ×3 (05:05→21:44)
[2019-01-04] MEDS: FAMOTIDINE 20 MG TABLET PO SCH ×4 (08:20→21:43)
[2019-01-04] MEDS: METOCLOPRAMIDE HCL 10 MG TABLET PO SCH ×4 (08:20→21:43)
[2019-01-04] MEDS: METFORMIN HCL 500 MG TABLET PO SCH ×2 (08:20→17:50)
[2019-01-04] MEDS: SUCRALFATE 1 GM TABLET PO SCH ×4 (08:20→21:44)
--- NOTE | 2019-01-04 09:02 | PDOC PROGRESS REPORT ---
Subjective Progress Note for:: 01/04/19 Subjective:: Patient was admitted last night through the emergency room for 2 weeks of shortness of breath. Patient has had this before and in fact he was in the emergency room recently because of the cost of medication did not get his prescriptions filled. According to the patient is never been told in the past he had high blood pressure, heart failure, kidney disease. For the last 2 weeks he has been more short of breath exertion is also noticed edema in his lower extremities. Patient was in the ER 3 days ago these complaints, and approximately 1 year ago in the ER with these exact same complaints. 01/04/2019 patient's vital signs remained stable blood pressure 112/61, temp 97 4, pulse 7 72 and regular O2 sat on room air 98% graph patient's renal functions are going up this will be rechecked today as well as his electrolytes glucose appears stable last BMP was several days ago we will recheck this as well. Patient lives alone only has $42 to get his medications we will try to address this today in anticipation for discharge tomorrow, if his renal functions are stable Reason For Visit: ACUTE ON CHRONIC CONGESTIVE HEART FAILURE Physical Exam Vital Signs: Temp Pulse Resp BP Pulse Ox 97.4 F 72 16 112/61 98 01/04/19 03:11 01/04/19 07:00 01/04/19 03:11 01/04/19 03:11 01/04/19 03:11 Intake & Output 01/03/19 01/04/19 01/05/19 06:59 06:59 06:59 Intake Total 720 1005 Output Total 600 Balance 120 1005 Weight 101.5 kg General appearance: PRESENT: no acute distress, well-developed, well-nourished, other - Patient is currently wearing his LifeVest as ordered by cardiology Respiratory exam: PRESENT: clear to auscultation moriah. ABSENT: rales, rhonchi, wheezes Cardiovascular exam: PRESENT: RRR, other - Life vest is on the patient. ABSENT: diastolic murmur, rubs, systolic murmur Neurological exam: PRESENT: alert, awake, oriented to person, oriented to place, oriented to time, oriented to situation, CN II-XII grossly intact. ABSENT: motor sensory deficit Psychiatric exam: PRESENT: appropriate affect, normal mood. ABSENT: homicidal ideation, suicidal ideation Results Laboratory Results: 01/03/19 04:06 01/03/19 04:06 12/31/18 12/31/18 12/31/18 17:00 17:00 17:00 Creatine Kinase 75 CK-MB (CK-2) 1.89 Troponin I 0.064 NT-Pro-B Natriuret Pep 3240 H 12/31/18 12/31/18 01/01/19 22:07 22:07 04:17 Creatine Kinase 73 66 CK-MB (CK-2) 1.76 Troponin I 0.072 NT-Pro-B Natriuret Pep 01/01/19 01/01/19 01/01/19 04:17 10:13 10:13 Creatine Kinase 67 CK-MB (CK-2) 1.78 1.72 Troponin I 0.072 0.054 NT-Pro-B Natriuret Pep Impressions: Chest X-Ray 12/31/18 16:35 IMPRESSION: Cardiomegaly. No acute findings in the chest. Venous Doppler Study 12/31/18 18:06 IMPRESSION: No evidence of deep venous thrombosis in the right lower extremity. Chest/Abdomen CTA 12/31/18 18:08 IMPRESSION: 1. No pulmonary emboli. 2. Grossly stable mediastinal and hilar adenopathy. Assessment and Plan - Diagnosis (1) Congestive heart failure Qualifiers: Heart failure type: unspecified Heart failure chronicity: acute on chronic Qualified Code(s): I50.9 - Heart failure, unspecified Is this a current diagnosis for this admission?: Yes Plan: Ejection fraction 50%, unclear underlying pathology, currently compensated, awaiting LifeVest. 01/04/2019 LifeVest is being worn by the patient today, lungs sound fairly clear the patient is currently on no diuretics (2) Diabetes mellitus type 2 in obese Is this a current diagnosis for this admission?: Yes Plan: Initially the patient placed on a diabetic diet and will use AC and at bedtime Accu-Cheks to assess his diabetic control. Blood sugar greatly improved without hypoglycemic events 01/04/2019 A1c from 3 days ago was 7.3, blood sugars are well controlled on metformin (3) Hypertension Qualifiers: Hypertension type: essential hypertension Qualified Code(s): I10 - Essential (primary) hypertension Is this a current diagnosis for this admission?: Yes Plan: Patient's antihypertensive regiment will be achieved along with controlling his congestive heart failure. Initial dosing of metoprolol and losartan has been ordered. Patient's clinical response will be monitored with frequent assessments of his blood pressure. 01/01/2019 is currently taking lisinopril 20 mg every 12 hours Toprol XL 100 mg daily, and also on Nitropaste. On admission blood pressure was 169/110, this morning it is 125/88 01/04/2019 she is well controlled she is on the Toprol XL 100 mg daily, lisinopril 20 mg every 12 hours (4) Respiratory distress Is this a current diagnosis for this admission?: Yes Plan: 01/01/2019 patient appears to be in no respiratory distress. Shortness of breath. BNP last night was 3240. Chest x-ray shows cardiomegaly but no acute findings CT scan showed no pulmonary emboli and grossly stable mediastinal and hilar adenopathy. 9 7 19 patient lives alone and in the hospital room states he is able to get up and walk to the chair in the bathroom without getting "too short of breath" told patient that if his renal functions remains stable today and he improves with his shortness of breath will DC to home tomorrow - Time Time Spent with patient: 25-34 minutes
[2019-01-04 09:59] LABS: ANION GAP 13 (5-19); BLOOD UREA NITROGEN 35 mg/dL (7-20); CALCIUM 9.1 mg/dL (8.4-10.2); CARBON DIOXIDE 24 mmol/L (22-30); CHLORIDE 100 mmol/L (98-107); GLUCOSE 162 mg/dL (75-110); POTASSIUM 4.6 mmol/L (3.6-5.0)
[2019-01-04] MEDS: LISINOPRIL 10 MG TABLET PO SCH ×2 (10:03→21:43)
[2019-01-04] MEDS: METOPROLOL SUCCINATE 50 MG TAB.SR.24H PO SCH (10:03)
[2019-01-04] MEDS: DOCUSATE SODIUM 100 MG CAPSULE PO SCH ×2 (10:03→17:47)
[2019-01-04] MEDS: FUROSEMIDE 20 MG TABLET PO SCH (14:57)
--- NOTE | 2019-01-04 17:43 | Progress Note ---
Provider Note Provider Note: CARDIOLOGY PROGRESS NOTE by Dr. Jessica Guajardo on 01/04/2019. SUBJECTIVE: The patient denies any chest pain or discomfort. There is no shortness of breath. The patient does admit that he has intermittent shortness of breath due to panic attacks/severe anxiety. This is controlled with Ativan. Which is written for as needed administration. There is no further ventricular arrhythmia seen on the monitor. There is no atrial arrhythmias. The patient has no leg swelling at present. There is no PND orthopnea. There is no TIA CVA symptoms. The patient had a LifeVest placed yesterday. There is no firing of the LifeVest. The patient understands the usage of the LifeVest. PHYSICAL EXAMINATION: The patient is moderately obese. He is well-groomed. No acute distress. Selected Entries 01/04/19 10:53 Temperature 98.1 F Temperature Oral Source Pulse Rate 72 Respiratory 18 Rate Blood Pressure 118/81 Blood Pressure 93 Mean BP Location Left Arm BP Position Sitting O2 Sat by Pulse 100 Oximetry Oxygen Flow 2.00 Rate Oxygen Delivery Nasal Cannula Method HEAD: Is atraumatic normocephalic. EYES: Pupils equal round regular reactive to light accommodation. Extraocular movements are normal. There is no conjunctival pallor. There is no scleral icterus. NOSE: There is no deviated nasal septum. There is no inflammation of the nasal mucous membrane. MOUTH: Mucous memories of the mouth are moist. Tongue is moist. There is no ulcers. There is no bleeding from the gums. THROAT: There is no redness of the oropharynx. There is no exudates. SKIN: There is no skin rashes or skin lesions. There is no ecchymosis or petechiae. NECK: Is supple. There is mild JVD still present. Carotids are equal there is no bruit there is no lymphadenopathy. There is no goiter. There is no accessory muscle respiration use. There is no chest wall tenderness. Trachea central. LUNGS: Shows a few bibasilar fine rales of CHF. There is no rhonchi or wheezing. HEART: S1-S2 is heard. S1 is of normal intensity. There is no S3 gallop. There is no S4 gallop. There is murmur of mitral regurgitation and tricuspid regurgitation present. There is aortic sclerosis murmur. There is no rub. ABDOMEN: Soft. Mildly obese. Nontender. There is no hepatospleno megaly. Bowel sounds are well heard. EXTREMITIES: Femorals are deep. Femorals of slightly diminished. There is no femoral bruits. Leg pulses are well felt. There is trace pedal edema bilaterally. There is no DVT or cellulitis. There is no calf tenderness. LOSS PREVENTION CONSULTANT: The patient is conscious awake alert oriented x3 with no focal deficits. PSYCHIATRIC: The patient judgment insight are intact his affect is normal. Labs- All tests 24 hr 01/03/19 01/04/19 01/04/19 21:08 08:02 09:25 Sodium 136.7 L Potassium 4.6 Chloride 100 Carbon Dioxide 24 Anion Gap 13 BUN 35 H Creatinine 1.26 H Est GFR ( Amer) > 60 Est GFR (MDRD) Non-Af 58 L Glucose 162 H POC Glucose 132 H 117 H Calcium 9.1 NT-Pro-B Natriuret Pep 01/04/19 01/04/19 01/04/19 09:25 10:54 16:41 Sodium Potassium Chloride Carbon Dioxide Anion Gap BUN Creatinine Est GFR ( Amer) Est GFR (MDRD) Non-Af Glucose POC Glucose 144 H 247 H Calcium NT-Pro-B Natriuret Pep 1170 H Chest X-Ray 12/31/18 16:35 IMPRESSION: Cardiomegaly. No acute findings in the chest. Venous Doppler Study 12/31/18 18:06 IMPRESSION: No evidence of deep venous thrombosis in the right lower extremity. Chest/Abdomen CTA 12/31/18 18:08 IMPRESSION: 1. No pulmonary emboli. 2. Grossly stable mediastinal and hilar adenopathy. IMPRESSION/RECOMMENDATION: 1. Acute on chronic biventricular systolic heart failure there is acute on chronic left ventricular systolic and right ventricle systolic heart failure secondary to cardiomyopathy continue patient on Toprol XL. Agree with stopping the patient's IV Bumex and converting it to p.o. Lasix in view of the patient's deteriorating renal function. Continue the patient on CATHI inhibitor. We will recheck the patient's chest x-ray. Hopefully discharge tomorrow. 2. Cardiomyopathy with severely reduced LV ejection fraction. Treatment as per gold standard guidelines for cardiomyopathy/CHF the plan has been discussed with the patient to repeat an echo in 3 months and if the LV ejection fraction is 35% or below then the patient will require an AICD. Also need to make sure that the patient has no underlying coronary artery disease contributing to the patient's cardiomyopathy. Later as an outpatient would recommend getting an IV Lexiscan Cardiolite stress test. At present the patient is on LifeVest. 3. Hypertension: Blood pressure now well controlled. 4. Acute renal insufficiency: His renal function is improved and his GFR is now 58 mL/min. Hence we will start the patient on small dose of Lasix. 5. Moderate pulmonary hypertension: Most likely secondary to left heart failure causing right heart failure. But later would recommend the patient have a sleep study to make sure the patient does not have sleep apnea, since the patient is obese. 6. Diabetes mellitus: Continue Accu-Cheks and current antidiabetic medication. 7. ANXIETY: Patient possibly having a panic attack. Will give the patient Xanax. 8. Asymptomatic nonsustained ventricular tachycardia episodes no further nonsustained ventricular tachycardia episodes. Medications reviewed. Medications added. Management plan and medication regimen discussed with attending provider on the case. Medical decision making is of high complexity. 40 minutes spent on this patient more than 50% of time spent in direct patient care. Will follow.
[2019-01-04] MEDS: INSULIN REG, HUMAN 100 UNIT/ML 3 ML VIAL (PYX) SUBCUT PRN (18:02)
--- NOTE | 2019-01-04 19:57 | RADIOLOGY REPORT (SQ) ---
EXAM DESCRIPTION: CHEST SINGLE VIEW COMPLETED DATE/TIME: 01/04/2019 7:32 pm REASON FOR STUDY: CHF COMPARISON: 12/31/2018 EXAM PARAMETERS: NUMBER OF VIEWS: One view. TECHNIQUE: Single frontal radiographic view of the chest acquired. RADIATION DOSE: NA LIMITATIONS: Artifact from cardiac support apparatus. FINDINGS: LUNGS AND PLEURA: No opacities, masses or pneumothorax. No pleural effusion. MEDIASTINUM AND HILAR STRUCTURES: No masses. Contour normal. HEART AND VASCULAR STRUCTURES: Stable heart size. BONES: No acute findings. HARDWARE: None in the chest. OTHER: No other significant finding. IMPRESSION: NO ACUTE RADIOGRAPHIC FINDING IN THE CHEST. TECHNICAL DOCUMENTATION: JOB ID: [id number]- All Rights Reserved Reading location - IP/workstation name: [email or web address]
[2019-01-04] MEDS: LORAZEPAM 1 MG TABLET PO PRN (21:56)
[2019-01-05] MEDS: HEPARIN SOD (PORCINE) 5,000 UNIT/ML 1 ML VIAL SUBCUT SCH ×3 (05:16→21:42)
[2019-01-05] MEDS: FAMOTIDINE 20 MG TABLET PO SCH ×4 (08:18→21:42)
[2019-01-05] MEDS: SUCRALFATE 1 GM TABLET PO SCH ×4 (08:18→21:43)
[2019-01-05] MEDS: METFORMIN HCL 500 MG TABLET PO SCH ×2 (08:18→15:55)
[2019-01-05] MEDS: METOCLOPRAMIDE HCL 10 MG TABLET PO SCH ×4 (08:18→21:43)
[2019-01-05] MEDS: DOCUSATE SODIUM 100 MG CAPSULE PO SCH ×2 (09:53→18:11)
[2019-01-05] MEDS: LISINOPRIL 10 MG TABLET PO SCH ×2 (09:53→21:42)
[2019-01-05] MEDS: FUROSEMIDE 20 MG TABLET PO SCH (09:54)
[2019-01-05] MEDS: METOPROLOL SUCCINATE 50 MG TAB.SR.24H PO SCH (09:54)
--- NOTE | 2019-01-05 10:16 | PDOC PROGRESS REPORT ---
Subjective Progress Note for:: 01/05/19 Subjective:: Patient was admitted last night through the emergency room for 2 weeks of shortness of breath. Patient has had this before and in fact he was in the emergency room recently because of the cost of medication did not get his prescriptions filled. According to the patient is never been told in the past he had high blood pressure, heart failure, kidney disease. For the last 2 weeks he has been more short of breath exertion is also noticed edema in his lower extremities. Patient was in the ER 3 days ago these complaints, and approximately 1 year ago in the ER with these exact same complaints. 01/04/2019 patient's vital signs remained stable blood pressure 112/61, temp 97 4, pulse 7 72 and regular O2 sat on room air 98% graph patient's renal functions are going up this will be rechecked today as well as his electrolytes glucose appears stable last BMP was several days ago we will recheck this as well. Patient lives alone only has $42 to get his medications we will try to address this today in anticipation for discharge tomorrow, if his renal functions are stable 01/05/2019 yesterday when patient was discontinued from his oxygen, and almost immediately his sats dropped to 82% on room air just ambulating to the bathroom. Patient's ejection fracture is 15%, this coupled with his anxiety is the cause of his hypoxia. Discharge planning is trying to set up home oxygen and this will be done hopefully tomorrow after he applies for Medicaid. I explained this to the patient Patient will go home on lisinopril 20 mg every 12 hours metoprolol milligrams daily Ativan 0.5 mg as needed, metformin 500 mg twice daily. Home oxygen at 2 L nasal cannula Reason For Visit: ACUTE ON CHRONIC CONGESTIVE HEART FAILURE Physical Exam Vital Signs: Temp Pulse Resp BP Pulse Ox 97.4 F 68 16 136/89 H 99 01/05/19 07:33 01/05/19 07:33 01/05/19 07:33 01/05/19 07:33 01/05/19 09:10 Intake & Output 01/04/19 01/05/19 01/06/19 06:59 06:59 06:59 Intake Total 1005 1085 Output Total 400 Balance 1005 685 Weight 101.5 kg 100.5 kg General appearance: PRESENT: no acute distress, other - When sitting at the beds nessa with his oxygen on Respiratory exam: PRESENT: decreased breath sounds, other - Approximately clear Cardiovascular exam: PRESENT: RRR. ABSENT: diastolic murmur, rubs, systolic murmur Neurological exam: PRESENT: alert, awake, oriented to person, oriented to place, oriented to time, oriented to situation, CN II-XII grossly intact. ABSENT: motor sensory deficit Psychiatric exam: PRESENT: anxious, appropriate affect, normal mood, other - I explained the to the patient the need for home O2. ABSENT: homicidal ideation, suicidal ideation Results Laboratory Results: 01/03/19 04:06 01/04/19 09:25 01/04/19 09:25 Sodium 136.7 L Potassium 4.6 Chloride 100 Carbon Dioxide 24 Anion Gap 13 BUN 35 H Creatinine 1.26 H Est GFR ( Amer) > 60 Glucose 162 H Calcium 9.1 12/31/18 12/31/18 12/31/18 17:00 17:00 17:00 Creatine Kinase 75 CK-MB (CK-2) 1.89 Troponin I 0.064 NT-Pro-B Natriuret Pep 3240 H 12/31/18 12/31/18 01/01/19 22:07 22:07 04:17 Creatine Kinase 73 66 CK-MB (CK-2) 1.76 Troponin I 0.072 NT-Pro-B Natriuret Pep 01/01/19 01/01/19 01/01/19 04:17 10:13 10:13 Creatine Kinase 67 CK-MB (CK-2) 1.78 1.72 Troponin I 0.072 0.054 NT-Pro-B Natriuret Pep 01/04/19 09:25 Creatine Kinase CK-MB (CK-2) Troponin I NT-Pro-B Natriuret Pep 1170 H Impressions: Venous Doppler Study 12/31/18 18:06 IMPRESSION: No evidence of deep venous thrombosis in the right lower extremity. Chest/Abdomen CTA 12/31/18 18:08 IMPRESSION: 1. No pulmonary emboli. 2. Grossly stable mediastinal and hilar adenopathy. Chest X-Ray 01/04/19 00:00 IMPRESSION: NO ACUTE RADIOGRAPHIC FINDING IN THE CHEST. Assessment and Plan - Diagnosis (1) Congestive heart failure Qualifiers: Heart failure type: unspecified Heart failure chronicity: acute on chronic Qualified Code(s): I50.9 - Heart failure, unspecified Is this a current diagnosis for this admission?: Yes Plan: Ejection fraction 50%, unclear underlying pathology, currently compensated, awaiting LifeVest. 01/04/2019 LifeVest is being worn by the patient today, lungs sound fairly clear the patient is currently on no diuretics 01/05/2019 vision CHF stable. Very little peripheral edema (2) Diabetes mellitus type 2 in obese Is this a current diagnosis for this admission?: Yes Plan: Initially the patient placed on a diabetic diet and will use AC and at bedtime Accu-Cheks to assess his diabetic control. Blood sugar greatly improved without hypoglycemic events 01/04/2019 A1c from 3 days ago was 7.3, blood sugars are well controlled on metformin 01/05/2019 she will go home on metformin 500 mg twice daily. Fingerstick glucoses morning is 95 (3) Hypertension Qualifiers: Hypertension type: essential hypertension Qualified Code(s): I10 - Essential (primary) hypertension Is this a current diagnosis for this admission?: Yes Plan: Patient's antihypertensive regiment will be achieved along with controlling his congestive heart failure. Initial dosing of metoprolol and losartan has been ordered. Patient's clinical response will be monitored with frequent assessments of his blood pressure. 01/01/2019 is currently taking lisinopril 20 mg every 12 hours Toprol XL 100 mg daily, and also on Nitropaste. On admission blood pressure was 169/110, this morning it is 125/88 01/04/2019 she is well controlled she is on the Toprol XL 100 mg daily, lisinopril 20 mg every 12 hours. Nitropaste has been DC'd 01/05/2019 pressures are well controlled and seem to average around 130/80 this morning it was 136/89. Patient is on the above medicines (4) Respiratory distress Is this a current diagnosis for this admission?: Yes Plan: 01/01/2019 patient appears to be in no respiratory distress. Shortness of breath. BNP last night was 3240. Chest x-ray shows cardiomegaly but no acute findings CT scan showed no pulmonary emboli and grossly stable mediastinal and hilar adenopathy. 9 11 15 patient lives alone and in the hospital room states he is able to get up and walk to the chair in the bathroom without getting "too short of breath" told patient that if his renal functions remains stable today and he improves with his shortness of breath will DC to home tomorrow 01/05/2019 patient desats to 82% on room air with ambulation, probably secondary to LV dysfunction patient will be discharged home on oxygen. Patient will also be discharged home on a low dose of Lasix 20 mg daily - Time Time Spent with patient: 25-34 minutes
[2019-01-05] MEDS: LORAZEPAM 1 MG TABLET PO PRN (15:55)
--- NOTE | 2019-01-05 21:55 | Progress Note ---
Provider Note Provider Note: CARDIOLOGY PROGRESS NOTE by Dr. Jessica Guajardo on 01/05/2019. SUBJECTIVE: The patient has had no further episodes of anxiety. But when he ambulated his O2 sats dropped to 80s. The patient is awaiting arrangement for home oxygen. The patient denies any chest pain or discomfort. There is no PND orthopnea. There is no leg edema, which is resolved. There is no further nonsustained or sustained ventricular arrhythmias seen. PHYSICAL EXAMINATION: The patient is moderately obese. The patient is well-groomed. In no acute distress. Selected Entries 01/05/19 11:25 Temperature 97.8 F Temperature Oral Source Pulse Rate 70 Respiratory 17 Rate Blood Pressure 148/90 H Blood Pressure 109 Mean BP Location Right Arm BP Position Sitting O2 Sat by Pulse 99 Oximetry Oxygen Flow 2.00 Rate Oxygen Delivery Nasal Cannula Method HEAD: Is atraumatic normocephalic. EYES: Pupils equal round regular reactive to light accommodation. Extraocular movements are normal. There is no conjunctival pallor. There is no scleral icterus. NOSE: There is no deviated nasal septum. There is no inflammation of the nasal mucous membrane. MOUTH: Mucous memories of the mouth are moist. Tongue is moist. There is no ulcers. There is no bleeding from the gums. THROAT: There is no redness of the oropharynx. There is no exudates. SKIN: There is no skin rashes or skin lesions. There is no ecchymosis or petechiae. NECK: Is supple. There is mild JVD still present. Carotids are equal there is no bruit there is no lymphadenopathy. There is no goiter. There is no accessory muscle respiration use. There is no chest wall tenderness. Trachea central. LUNGS: Shows a few bibasilar fine rales of CHF. There is no rhonchi or wheezing. HEART: S1-S2 is heard. S1 is of normal intensity. There is no S3 gallop. There is no S4 gallop. There is murmur of mitral regurgitation and tricuspid regurgitation present. There is aortic sclerosis murmur. There is no rub. ABDOMEN: Soft. Mildly obese. Nontender. There is no hepatospleno megaly. Bowel sounds are well heard. EXTREMITIES: Femorals are deep. Femorals of slightly diminished. There is no femoral bruits. Leg pulses are well felt. There is trace pedal edema bilaterally. There is no DVT or cellulitis. There is no calf tenderness. DOCUMENT PREPARER MICROFILMING: The patient is conscious awake alert oriented x3 with no focal deficits. PSYCHIATRIC: The patient judgment insight are intact his affect is normal. Labs- All tests 24 hr 01/05/19 01/05/19 01/05/19 07:47 12:21 21:01 POC Glucose 95 121 H 131 H Chest X-Ray 12/31/18 16:35 IMPRESSION: Cardiomegaly. No acute findings in the chest. Venous Doppler Study 12/31/18 18:06 IMPRESSION: No evidence of deep venous thrombosis in the right lower extremity. Chest/Abdomen CTA 12/31/18 18:08 IMPRESSION: 1. No pulmonary emboli. 2. Grossly stable mediastinal and hilar adenopathy. Chest X-Ray 01/04/19 00:00 IMPRESSION: NO ACUTE RADIOGRAPHIC FINDING IN THE CHEST. IMPRESSION/RECOMMENDATION: 1. Acute on chronic biventricular systolic heart failure there is acute on chronic left ventricular systolic and right ventricle systolic heart failure secondary to cardiomyopathy continue patient on Toprol XL. Agree with stopping the patient's IV Bumex and converting it to p.o. Lasix in view of the patient's deteriorating renal function. Continue the patient on CATHI inhibitor. We will recheck the patient's chest x-ray. Hopefully discharge tomorrow. 2. Cardiomyopathy with severely reduced LV ejection fraction. Treatment as per gold standard guidelines for cardiomyopathy/CHF the plan has been discussed with the patient to repeat an echo in 3 months and if the LV ejection fraction is 35% or below then the patient will require an AICD. Also need to make sure that the patient has no underlying coronary artery disease contributing to the patient's cardiomyopathy. Later as an outpatient would recommend getting an IV Lexiscan Cardiolite stress test. At present the patient is on LifeVest. 3. Hypertension: Blood pressure now well controlled. 4. Acute renal insufficiency: His renal function is improved and his GFR is now 58 mL/min. Hence we will start the patient on small dose of Lasix. 5. Moderate pulmonary hypertension: Most likely secondary to left heart failure causing right heart failure. But later would recommend the patient have a sleep study to make sure the patient does not have sleep apnea, since the patient is obese. 6. Diabetes mellitus: Continue Accu-Cheks and current antidiabetic medication. 7. ANXIETY: Patient possibly having a panic attack. Will give the patient Xanax. 8. Asymptomatic nonsustained ventricular tachycardia episodes no further nonsu stained ventricular tachycardia episodes. Medications reviewed. Medications added. Management plan and medication regimen discussed with attending provider on the case. Medical decision making is of high complexity. 40 minutes spent on this patient more than 50% of time spent in direct patient care. Will follow.
[2019-01-06] MEDS: LORAZEPAM 1 MG TABLET PO PRN ×3 (00:45→17:40)
[2019-01-06] MEDS: HEPARIN SOD (PORCINE) 5,000 UNIT/ML 1 ML VIAL SUBCUT SCH ×3 (06:12→21:34)
[2019-01-06] MEDS: METFORMIN HCL 500 MG TABLET PO SCH ×2 (09:00→15:47)
[2019-01-06] MEDS: METOCLOPRAMIDE HCL 10 MG TABLET PO SCH ×4 (09:00→21:33)
[2019-01-06] MEDS: SUCRALFATE 1 GM TABLET PO SCH ×4 (09:00→21:33)
[2019-01-06] MEDS: FAMOTIDINE 20 MG TABLET PO SCH ×4 (09:00→21:33)
[2019-01-06] MEDS: DOCUSATE SODIUM 100 MG CAPSULE PO SCH ×2 (09:25→17:40)
[2019-01-06] MEDS: FUROSEMIDE 20 MG TABLET PO SCH (09:25)
[2019-01-06] MEDS: LISINOPRIL 10 MG TABLET PO SCH ×2 (09:26→21:34)
[2019-01-06] MEDS: METOPROLOL SUCCINATE 50 MG TAB.SR.24H PO SCH (09:26)
--- NOTE | 2019-01-06 17:07 | PDOC PROGRESS REPORT ---
Subjective Progress Note for:: 01/06/19 Subjective:: Patient was admitted last night through the emergency room for 2 weeks of shortness of breath. Patient has had this before and in fact he was in the emergency room recently because of the cost of medication did not get his prescriptions filled. According to the patient is never been told in the past he had high blood pressure, heart failure, kidney disease. For the last 2 weeks he has been more short of breath exertion is also noticed edema in his lower extremities. Patient was in the ER 3 days ago these complaints, and approximately 1 year ago in the ER with these exact same complaints. 01/04/2019 patient's vital signs remained stable blood pressure 112/61, temp 97 4, pulse 7 72 and regular O2 sat on room air 98% graph patient's renal functions are going up this will be rechecked today as well as his electrolytes glucose appears stable last BMP was several days ago we will recheck this as well. Patient lives alone only has $42 to get his medications we will try to address this today in anticipation for discharge tomorrow, if his renal functions are stable 01/05/2019 yesterday when patient was discontinued from his oxygen, and almost immediately his sats dropped to 82% on room air just ambulating to the bathroom. Patient's ejection fracture is 15%, this coupled with his anxiety is the cause of his hypoxia. Discharge planning is trying to set up home oxygen and this will be done hopefully tomorrow after he applies for Medicaid. I explained this to the patient Patient will go home on lisinopril 20 mg every 12 hours metoprolol milligrams daily Ativan 0.5 mg as needed, metformin 500 mg twice daily. Home oxygen at 2 L nasal cannula 01/06/2019 I tried to get the patient home today but is unable to do so because I cannot secure home oxygen. Patient has no insurance and does not qualify for Medicaid patient's oxygen saturation drops down to 82 on room air with just the slightest bit of ambulation. This is because of a very low ejection fracture. Charge planning is trying their best to get home oxygen set up through different companies Patient's last chest x-ray was stable no acute cardiopulmonary disease 2 days ago. Reason For Visit: ACUTE ON CHRONIC CONGESTIVE HEART FAILURE Physical Exam Vital Signs: Temp Pulse Resp BP Pulse Ox 98.4 F 55 L 20 131/86 H 100 01/06/19 03:37 01/06/19 16:35 01/06/19 16:35 01/06/19 16:35 01/06/19 16:35 Intake & Output 01/05/19 01/06/19 01/07/19 06:59 06:59 06:59 Intake Total 1085 1140 Output Total 400 Balance 685 1140 Weight 100.5 kg 99.6 kg General appearance: PRESENT: mild distress, other - Up in bed with nasal oxygen Respiratory exam: PRESENT: decreased breath sounds Cardiovascular exam: PRESENT: RRR. ABSENT: diastolic murmur, rubs, systolic murmur Neurological exam: PRESENT: alert, awake, oriented to person, oriented to place, oriented to time, oriented to situation, CN II-XII grossly intact. ABSENT: motor sensory deficit Psychiatric exam: PRESENT: flat affect, other - Very flat affect patient seems somewhat depressed Results Laboratory Results: 01/03/19 04:06 01/04/19 09:25 12/31/18 12/31/18 12/31/18 17:00 17:00 17:00 Creatine Kinase 75 CK-MB (CK-2) 1.89 Troponin I 0.064 NT-Pro-B Natriuret Pep 3240 H 12/31/18 12/31/18 01/01/19 22:07 22:07 04:17 Creatine Kinase 73 66 CK-MB (CK-2) 1.76 Troponin I 0.072 NT-Pro-B Natriuret Pep 01/01/19 01/01/19 01/01/19 04:17 10:13 10:13 Creatine Kinase 67 CK-MB (CK-2) 1.78 1.72 Troponin I 0.072 0.054 NT-Pro-B Natriuret Pep 01/04/19 09:25 Creatine Kinase CK-MB (CK-2) Troponin I NT-Pro-B Natriuret Pep 1170 H Impressions: Venous Doppler Study 12/31/18 18:06 IMPRESSION: No evidence of deep venous thrombosis in the right lower extremity. Chest/Abdomen CTA 12/31/18 18:08 IMPRESSION: 1. No pulmonary emboli. 2. Grossly stable mediastinal and hilar adenopathy. Chest X-Ray 01/04/19 00:00 IMPRESSION: NO ACUTE RADIOGRAPHIC FINDING IN THE CHEST. Assessment and Plan - Diagnosis (1) Congestive heart failure Qualifiers: Heart failure type: unspecified Heart failure chronicity: acute on chronic Qualified Code(s): I50.9 - Heart failure, unspecified Is this a current diagnosis for this admission?: Yes Plan: Ejection fraction 50%, unclear underlying pathology, currently compensated, awaiting LifeVest. 01/04/2019 LifeVest is being worn by the patient today, lungs sound fairly clear the patient is currently on no diuretics 01/05/2019 CHF stable. Very little peripheral edema 01/06/2019 chest x-ray from 2 days ago shows no CHF. BNP on admission was 3240 days ago BNP had come down to 1170 (2) Diabetes mellitus type 2 in obese Is this a current diagnosis for this admission?: Yes Plan: Initially the patient placed on a diabetic diet and will use AC and at bedtime A ccu-Cheks to assess his diabetic control. Blood sugar greatly improved without hypoglycemic events 01/04/2019 A1c from 3 days ago was 7.3, blood sugars are well controlled on metformin 01/05/2019 he will go home on metformin 500 mg twice daily. Fingerstick glucoses morning is 95 01/06/2019 patient's blood sugars are running in the low 100s on the metformin 500 twice daily (3) Hypertension Qualifiers: Hypertension type: essential hypertension Qualified Code(s): I10 - Essential (primary) hypertension Is this a current diagnosis for this admission?: Yes Plan: Patient's antihypertensive regiment will be achieved along with controlling his congestive heart failure. Initial dosing of metoprolol and losartan has been ordered. Patient's clinical response will be monitored with frequent assessments of his blood pressure. 01/01/2019 is currently taking lisinopril 20 mg every 12 hours Toprol XL 100 mg daily, and also on Nitropaste. On admission blood pressure was 169/110, this morning it is 125/88 01/04/2019 she is well controlled she is on the Toprol XL 100 mg daily, lisinopril 20 mg every 12 hours. Nitropaste has been DC'd 01/05/2019 pressures are well controlled and seem to average around 130/80 this morning it was 136/89. Patient is on the above medicines 01/06/2019 patient's blood pressures are averaging systolic around 135 with diastolic around 85 on the medications listed above (4) Respiratory distress Is this a current diagnosis for this admission?: Yes Plan: 01/01/2019 patient appears to be in no respiratory distress. Shortness of breath. BNP last night was 3240. Chest x-ray shows cardiomegaly but no acute findings CT scan showed no pulmonary emboli and grossly stable mediastinal and hilar adenopathy. 9 7 19 patient lives alone and in the hospital room states he is able to get up and walk to the chair in the bathroom without getting "too short of breath" told patient that if his renal functions remains stable today and he improves with his shortness of breath will DC to home tomorrow 01/05/2019 patient desats to 82% on room air with ambulation, probably secondary to LV dysfunction patient will be discharged home on oxygen. Patient will also be discharged home on a low dose of Lasix 20 mg daily 01/06/2019 she will go home on a low dose of Lasix 20 mg daily. Patient becomes very short of breath with any exertion or activity if not using oxygen. If patient has nasal cannula oxygen in place his sats remain in the upper 90s with exertion. 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 - Time Time Spent with patient: 25-34 minutes - Have spent at least an hour on the phone today talking to discharge planning the nurses station trying to get oxygen secured for this patient. Dr. Guajardo recommends Toprol XL 100 mg daily, Lasix 20 mg a day, lisinopril 20 mg every 12 hours, and possibly either low-dose of Ativan or Xanax as needed
--- NOTE | 2019-01-06 22:31 | Progress Note ---
Provider Note Provider Note: CARDIOLOGY PROGRESS NOTE by Dr. Jessica Guajardo on 01/06/2019. SUBJECTIVE: The patient has no further shortness of breath. Note the patient continues to desat without oxygen when ambulating. His saturations are fine on nasal oxygen. Arrangements are being made for nasal oxygen. There are occasional PVCs seen on the monitor. There is no nonsustained ventricular tachycardia. There is no firing of his LifeVest. The patient denies any chest pain or discomfort there is no PND orthopnea or leg edema. PHYSICAL EXAMINATION: The patient is moderately obese. In no acute distress. Selected Entries 01/06/19 07:59 Pulse Rate 62 Respiratory 22 H Rate Blood Pressure 137/66 H Blood Pressure 89 Mean BP Location Right Arm BP Position Supine O2 Sat by Pulse 100 Oximetry Oxygen Flow 2.00 Rate Oxygen Delivery Nasal Cannula Method HEAD: Is atraumatic normocephalic. EYES: Pupils equal round regular reactive to light accommodation. Extraocular movements are normal. There is no conjunctival pallor. There is no scleral icterus. NOSE: There is no deviated nasal septum. There is no inflammation of the nasal mucous membrane. MOUTH: Mucous memories of the mouth are moist. Tongue is moist. There is no ulcers. There is no bleeding from the gums. THROAT: There is no redness of the oropharynx. There is no exudates. SKIN: There is no skin rashes or skin lesions. There is no ecchymosis or petechiae. NECK: Is supple. There is mild JVD still present. Carotids are equal there is no bruit there is no lymphadenopathy. There is no goiter. There is no accessory muscle respiration use. There is no chest wall tenderness. Trachea central. LUNGS: Shows a few bibasilar fine rales of CHF. There is no rhonchi or wheezing. HEART: S1-S2 is heard. S1 is of normal intensity. There is no S3 gallop. There is no S4 gallop. There is murmur of mitral regurgitation and tricuspid regurgitation present. There is aortic sclerosis murmur. There is no rub. ABDOMEN: Soft. Mildly obese. Nontender. There is no hepatospleno megaly. Bowel sounds are well heard. EXTREMITIES: Femorals are deep. Femorals of slightly diminished. There is no femoral bruits. Leg pulses are well felt. There is trace pedal edema bilaterally. There is no DVT or cellulitis. There is no calf tenderness. 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 PSYCHIATRIC: The patient judgment insight are intact his affect is normal. Labs- All tests 24 hr 01/06/19 01/06/19 01/06/19 07:57 11:24 16:36 POC Glucose 96 125 H 137 H 01/06/19 21:09 POC Glucose 122 H Chest X-Ray 12/31/18 16:35 IMPRESSION: Cardiomegaly. No acute findings in the chest. Venous Doppler Study 12/31/18 18:06 IMPRESSION: No evidence of deep venous thrombosis in the right lower extremity. Chest/Abdomen CTA 12/31/18 18:08 IMPRESSION: 1. No pulmonary emboli. 2. Grossly stable mediastinal and hilar adenopathy. Chest X-Ray 01/04/19 00:00 IMPRESSION: NO ACUTE RADIOGRAPHIC FINDING IN THE CHEST. IMPRESSION/RECOMMENDATION: 1. Acute on chronic biventricular systolic heart failure there is acute on chronic left ventricular systolic and right ventricle systolic heart failure secondary to cardiomyopathy continue patient on Toprol XL. Agree with stopping the patient's IV Bumex and converting it to p.o. Lasix in view of the patient's deteriorating renal function. Continue the patient on CATHI inhibitor. We will recheck the patient's chest x-ray. Hopefully discharge tomorrow. 2. Cardiomyopathy with severely reduced LV ejection fraction. Treatment as per gold standard guidelines for cardiomyopathy/CHF the plan has been discussed with the patient to repeat an echo in 3 months and if the LV ejection fraction is 35% or below then the patient will require an AICD. Also need to make sure that the patient has no underlying coronary artery disease contributing to the patient's cardiomyopathy. Later as an outpatient would recommend getting an IV Lexiscan Cardiolite stress test. At present the patient is on LifeVest. 3. Hypertension: Blood pressure now well controlled. 4. Acute renal insufficiency: His renal function is improved and his GFR is now 58 mL/min. Hence we will start the patient on small dose of Lasix. 5. Moderate pulmonary hypertension: Most likely secondary to left heart failure causing right heart failure. But later would recommend the patient have a sleep study to make sure the patient does not have sleep apnea, since the patient is obese. 6. Diabetes mellitus: Continue Accu-Cheks and current antidiabetic medication. 7. ANXIETY: Patient possibly having a panic attack. Will give the patient Xanax. 8. Asymptomatic nonsustained ventricular tachycardia episodes no further nonsustained ventricular tachycardia episodes. Medications reviewed. Medications added. Management plan and medication regimen discussed with attending provider on the case. Medical decision making is of high complexity. 40 minutes spent on this patient more than 50% of time spent in direct patient care. Cardiac status at present is stable as can be. Will sign off. Will follow the patient in the office. My contact and cell office phone numbers have been given to the patient.
[2019-01-07] MEDS: HEPARIN SOD (PORCINE) 5,000 UNIT/ML 1 ML VIAL SUBCUT SCH ×2 (05:17→13:47)
[2019-01-07] MEDS: SUCRALFATE 1 GM TABLET PO SCH ×2 (08:23→11:23)
[2019-01-07] MEDS: METOCLOPRAMIDE HCL 10 MG TABLET PO SCH ×2 (08:23→11:22)
[2019-01-07] MEDS: METFORMIN HCL 500 MG TABLET PO SCH (08:23)
[2019-01-07] MEDS: FAMOTIDINE 20 MG TABLET PO SCH ×2 (08:23→11:23)
[2019-01-07] MEDS: LORAZEPAM 1 MG TABLET PO PRN (08:24)
[2019-01-07] MEDS: LISINOPRIL 10 MG TABLET PO SCH (10:03)
[2019-01-07] MEDS: FUROSEMIDE 20 MG TABLET PO SCH (10:03)
[2019-01-07] MEDS: DOCUSATE SODIUM 100 MG CAPSULE PO SCH (10:03)
[2019-01-07] MEDS: METOPROLOL SUCCINATE 50 MG TAB.SR.24H PO SCH (10:03)
[2019-01-07 16:25] VITALS: BP 139/87
--- NOTE | 2019-01-07 19:18 | PDOC DISCHARGE SUMMARY ---
General - Admit/Disc Date/PCP Admission Date/Primary Care Provider: 12/31/18 20:51 Discharge Date: 01/07/19 - Discharge Diagnosis (1) Congestive heart failure Is this a current diagnosis for this admission?: Yes Summary: He was medically optimized. He was put on a LifeVest. He will follow-up as an outpatient with Dr. Guajardo. He will probably get a stress test as an outpatient. We would like to have put him on Entresto but he cannot afford it at this time. (2) Acute renal failure Is this a current diagnosis for this admission?: Yes Summary: Possibly acute on chronic. Creatinine stabilizing GFR improved up to 58. (3) Diabetes mellitus type 2 in obese Is this a current diagnosis for this admission?: Yes Summary: His creatinine improved and so he will continue his metformin. (4) Hypertension Is this a current diagnosis for this admission?: Yes Summary: Well-controlled with current regimen (5) Obesity (BMI 30-39.9) Is this a current diagnosis for this admission?: Yes Summary: Strongly encouraged lifestyle modification - Additional Information Resuscitation Status: Full Code Discharge Diet: Cardiac, Diabetic Discharge Activity: Activity As Tolerated, Balance Activity w/Rest, Weigh Daily Prescriptions: Metformin HCl [Glucophage 500 mg Tablet] 500 mg PO BIDACBS #60 tablet Furosemide [Lasix 20 mg Tablet] 20 mg PO DAILY #30 tablet Lisinopril [Prinivil 10 mg Tablet] 20 mg PO Q12 #60 tablet Metoprolol Succinate [Toprol Xl 50 mg Tab.sr] 100 mg PO DAILY #60 tab.sr.24h Home Medications: Furosemide [Lasix 20 mg Tablet] 20 mg PO DAILY #30 tablet 01/07/19 Lisinopril [Prinivil 10 mg Tablet] 20 mg PO Q12 #60 tablet 01/07/19 Metformin HCl [Glucophage 500 mg Tablet] 500 mg PO BIDACBS #60 tablet 01/07/19 Metoprolol Succinate [Toprol Xl 50 mg Tab.sr] 100 mg PO DAILY #60 tab.sr.24h 01/07/19 History of Present Illness History of Present Illness: SARA HOLLIDAY is a 63 year old male who presented to the emergency room with a 2-week history of dyspnea. Patient admits gradually worsening dyspnea over the last 2 weeks associated with swelling in his lower extremities, orthopnea, intermittent moderate central chest pressure, a nonproductive cough and most recently severe dyspnea on exertion. He denies other associated or accompanying signs and symptoms. He admits that he was seen in the emergency room 3 days prior to this visit and admission was recommended at that time however he refused. He has not identified any aggravating or ameliorating factors for his dyspnea with the exception of transient relief after being given Lasix in the emergency room 3 days ago. He denies prior similar symptoms. In the emergency room he was found to have a significantly elevated BNP and his clinical evaluation was consistent with peripheral edema secondary to congestive heart failure. Patient was subsequently admitted to the hospital for further evaluation and treatment. Hospital Course Hospital Course: His Bumex was changed to Lasix because of his renal function which gradually did improve. He responded fairly well to diuresis. We medically optimized him with a beta-gianfranco and CATHI inhibitor, which was used because he could not afford his Cozaar that had previously been prescribed and it would be unlikely that he could afford Entresto. His EF was noted to be 15%. He had a LifeVest placed. He will follow-up with Dr. Guajardo as an outpatient. He will likely get a stress test in the near future. We kept him here for a few days because we were trying to get oxygen for him and he did not have insurance, but today he was able to ambulate on room air and his SPO2 stayed in the mid 90s. His labs and examination were reassuring and he was discharged in stable condition. Physical Exam Vital Signs: Temp Pulse Resp BP Pulse Ox 97.8 F 57 L 20 139/87 H 99 01/07/19 16:23 01/07/19 16:23 01/07/19 16:23 01/07/19 16:23 01/07/19 16:23 Intake & Output 01/06/19 01/07/19 01/08/19 06:59 06:59 06:59 Intake Total 1140 1496 Output Total 200 Balance 1140 1296 Weight 99.6 kg 99.5 kg General appearance: PRESENT: no acute distress, cooperative, disheveled, morbidly obese Respiratory exam: PRESENT: clear to auscultation moriah, symmetrical, unlabored. ABSENT: accessory muscle use, chest wall tenderness, crackles, prolonged expiratory phas, rhonchi, tachypnea, wheezes Cardiovascular exam: PRESENT: RRR, +S1, +S2 Pulses: PRESENT: normal carotid pulses Vascular exam: PRESENT: normal capillary refill GI/Abdominal exam: PRESENT: normal bowel sounds, soft. ABSENT: distended, guarding, rebound, tenderness Extremities exam: ABSENT: clubbing, pedal edema Musculoskeletal exam: PRESENT: normal inspection. ABSENT: deformity Neurological exam: PRESENT: alert, awake, oriented to person, oriented to place, oriented to situation Psychiatric exam: PRESENT: flat affect Skin exam: PRESENT: dry, warm Results Laboratory Results: 01/03/19 04:06 01/04/19 09:25 12/31/18 12/31/18 12/31/18 17:00 17:00 17:00 Creatine Kinase 75 CK-MB (CK-2) 1.89 Troponin I 0.064 NT-Pro-B Natriuret Pep 3240 H 12/31/18 12/31/18 01/01/19 22:07 22:07 04:17 Creatine Kinase 73 66 CK-MB (CK-2) 1.76 Troponin I 0.072 NT-Pro-B Natriuret Pep 01/01/19 01/01/19 01/01/19 04:17 10:13 10:13 Creatine Kinase 67 CK-MB (CK-2) 1.78 1.72 Troponin I 0.072 0.054 NT-Pro-B Natriuret Pep 01/04/19 09:25 Creatine Kinase CK-MB (CK-2) Troponin I NT-Pro-B Natriuret Pep 1170 H Impressions: Venous Doppler Study 12/31/18 18:06 IMPRESSION: No evidence of deep venous thrombosis in the right lower extremity. Chest/Abdomen CTA 12/31/18 18:08 IMPRESSION: 1. No pulmonary emboli. 2. Grossly stable mediastinal and hilar adenopathy. Chest X-Ray 01/04/19 00:00 IMPRESSION: NO ACUTE RADIOGRAPHIC FINDING IN THE CHEST. Qualifiers - * PATIENT BEING DISCHARGED WITH ANY OF THE FOLLOWING DIAGNOSIS: No Acute Heart Failure - Is this a Heart Failure Patient?: Yes Documentation of LVEF assessment?: Yes LVEF < 40%?: Yes-if yes answer questions a through e a) Discharged on ACEI?: Yes b) Discharges on ARB?: No-document contraindications - Could not previously afford Cozaar Reason(s) not discharged on ARB: Other - Could not afford his Cozaar previously c) Discharged on ARNI?: No-Document Contraindications Reason(s) not discharged on ARNI: Other - Would not be able to afford Entresto at this time d) Discharged on evidence-based Beta gianfranco(carvedilol, sustained release metoprolol succinate, or bisoprolol)?: Yes e) For LVEF <35%, discharged on Aldosterone antagonist?: No-document contraincations Reason(s) not discharged on Aldosterone antagonist for LVEF < 35%: Other - Potassium was borderline elevated 3. Anticoagulant therapy for permanect/persistent/paraoxysmal Afib or Aflutter: N/A Follow-up Appointment scheduled within 7 days?: Yes Plan Time Spent: Greater than 30 Minutes
== END 2019-01-07 16:40 | disposition home health service (06) | DRG 292 ==
LOC: ER 16:24 → EH 20:51 → 3W 22:39 → UNDODISIN 01-07 15:40
PROVIDERS: ADMIT Emergency Medicine; ATTEND Emergency Medicine
DX: I11.0 Hypertensive heart disease with heart failure (principal); N17.9 Acute kidney failure, unspecified; I50.23 Acute on chronic systolic (congestive) heart failure; E66.9 Obesity, unspecified; Z68.30 Body mass index [BMI] 30.0-30.9, adult; E66.01 Morbid (severe) obesity due to excess calories; Z60.2 Problems related to living alone; I42.9 Cardiomyopathy, unspecified; I27.20 Pulmonary hypertension, unspecified; E11.43 Type 2 diabetes mellitus with diabetic autonomic (poly)neuropathy; K31.84 Gastroparesis; I49.3 Ventricular premature depolarization; F41.9 Anxiety disorder, unspecified; Z87.891 Personal history of nicotine dependence; Z99.81 Dependence on supplemental oxygen
CPT/HCPCS: 36415; 71045; 71046; 71275; 80048; 80053; 80061; 81001; 82550; 82553; 82962; 83036; 83690; 83735; 83880; 84156; 84439; 84443; 84481; 84484; 85025; 85027; 93005; 93010; 93306; 93971; 96374; 99285; J1644; J1815; J1940; J3490

== ENCOUNTER 2020-01-27 10:07 | Emergency (ER) | payer SELFPAY ==
[2020-01-27] MEDS ORDERED: FUROSEMIDE INJ/PF 100 MG/10 ML SDV IV ONE (10:38)
--- NOTE | 2020-01-27 11:04 | ER Document Report ---
Entered by BEENA SESAY SCRIBE 01/27/20 1038 Acting as scribe for:MARTÍNEZ CAMP MD ED Respiratory Problem - General Chief Complaint: Shortness Of Breath Stated Complaint: SHORT OF BREATH,FEVER,NAUSEA Time Seen by Provider: 01/27/20 10:25 Information source: Patient Notes: This 64 year old male patient with CHF presents to the emergency department today with complaints of dyspnea on exertion for the last month which is getting worse since onset. He reports that he has been off of his medications for at least a month. Patient adds that today "feels like CHF but much worse than carol l". TRAVEL OUTSIDE OF THE [place] IN LAST 30 DAYS: No - Related Data Allergies/Adverse Reactions: No Known Allergies Allergy (Verified 12/31/18 16:24) Past Medical History - General Information source: Patient - Social History Smoking Status: Former Smoker Cigarette use (# per day): No Frequency of alcohol use: None Drug Abuse: None Lives with: Family Family History: None - Patient's biologic family is unknown to him - Past Medical History Cardiac Medical History: Reports: Hx Congestive Heart Failure, Hx Hypertension Endocrine Medical History: Reports: Hx Diabetes Mellitus Type 2 Psychiatric Medical History: Reports: Hx Depression Surgical Hx: Negative - Immunizations Hx Diphtheria, Pertussis, Tetanus Vaccination: - unknown Review of Systems - Review of Systems Constitutional: No symptoms reported EENT: No symptoms reported Cardiovascular: No symptoms reported Respiratory: See HPI, Short of breath Gastrointestinal: No symptoms reported Genitourinary: No symptoms reported Male Genitourinary: No symptoms reported Musculoskeletal: No symptoms reported Skin: No symptoms reported Hematologic/Lymphatic: No symptoms reported Neurological/Psychological: No symptoms reported -: Yes All other systems reviewed and negative Physical Exam - Vital signs Vitals: Temp 97.4 F 01/27/20 10:07 - Notes Notes: Physical Exam: General: Alert, appears well. HEENT: Normocephalic. Atraumatic. PERRL. Extraocular movements intact. Oropharynx clear. Neck: Supple. Non-tender. JVD. Respiratory: Mild respiratory distress. Clear and equal breath sounds bilaterally, saturating at 98% on room air but he is mildly tachypneic. Cardiovascular: Tachycardic, regular rhythm. Abdominal: Normal Inspection. Non-tender. No distension. Normal Bowel Sounds. Back: No gross abnormalities. Extremities: Moves all four extremities. Upper extremities: Normal inspection. Normal ROM. Lower extremities: 3+ edema bilaterally. Normal ROM. Neurological: Normal cognition. AAOx4. Normal speech. Psychological: Normal affect. Normal Mood. Skin: Warm. Dry. Normal color. Course - Re-evaluation Re-evalutation: 01/27/20 13:33 Patient has been urinating some, he states his breathing does feel much better. He is at 98% pulse ox on room air at this time. 01/27/20 15:26 The patient has urinated quite a bit, his blood pressure is now down about 150 systolic. He states his breathing is considerably improved and he notices the swelling to the legs feels less tight. The patient states that he never uses salt, occasionally uses a salt substitute. That he started eating bananas when he was started on the Lasix last year and he tries to eat 2 bananas daily. I advised him that the medications he was on most recently were each on the $4 list at local pharmacies and that is what I would be prescribing for him today. He states he will have no problem getting those medications filled. He would be given a dose of the metformin and lisinopril here so he will start the medications tomorrow. - Vital Signs Vital signs: Temp Pulse Resp BP Pulse Ox 97.4 F 112 H 34 H 157/108 H 97 01/27/20 10:13 01/27/20 10:13 01/27/20 15:18 01/27/20 15:18 01/27/20 15:18 - Laboratory Result Diagrams: 01/27/20 11:27 01/27/20 11:27 Laboratory results interpreted by me: 01/27/20 01/27/20 01/27/20 11:27 11:27 11:27 Hgb 13.4 L RDW 14.8 H Chloride 108 H Carbon Dioxide 20 L BUN 22 H Creatinine 1.31 H Est GFR (MDRD) Non-Af 55 L Glucose 190 H Creatine Kinase 51 L NT-Pro-B Natriuret Pep 3680 H Urine Protein Urine Glucose (UA) Urine Blood 01/27/20 12:35 Hgb RDW Chloride Carbon Dioxide BUN Creatinine Est GFR (MDRD) Non-Af Glucose Creatine Kinase NT-Pro-B Natriuret Pep Urine Protein 30 H Urine Glucose (UA) 50 H Urine Blood SMALL H - Diagnostic Test Radiology reviewed: Image reviewed, Reports reviewed - Chest x-ray does not show acute cardiopulmonary process - EKG Interpretation by Me EKG shows normal: Sinus rhythm, [place], Intervals, QRS Complexes, ST-T Waves Rate: Tachycardia - 106 Rhythm: PVC's [place]/QRS: IVCD Voltage: Consistent with LVH P Waves: LAE Critical Care Note - Critical Care Note Total time excluding time spent on procedures (mins): 35 Comments: At least 35 minutes spent reviewing the patient's previous medical records, reviewing his curren lab and radiological findings. Time spent with the initial interview and history and physical. Re-evaluations on several occasions to see how he was doing as he began making urine after the Lasix. Time spent dis cussing long-term management and writing prescriptions for all of the medications that he was out of. Discharge - Discharge Clinical Impression: Respiratory distress, Diabetes mellitus type 2 in obese, Peripheral edema Hypertension Qualifiers: Hypertension type: essential hypertension Qualified Code(s): I10 - Essential (primary) hypertension Congestive heart failure Qualifiers: Heart failure type: unspecified Heart failure chronicity: acute on chronic Qualified Code(s): I50.9 - Heart failure, unspecified Condition: Stable Disposition: HOME, SELF-CARE Additional Instructions: Congestive Heart Failure You have been diagnosed as having congestive heart failure (CHF). CHF occurs when the heart is unable to pump blood efficiently, leading to fluid buildup in the veins and lungs. Typical symptoms are swelling of the legs, shortness of breath on minor exertion, and fatigue. CHF is treated with salt restriction, medicine to eliminate excess water and salt from the body, and medication to help the heart contract more efficiently. Eliminate added salt and salty foods in your diet. Decrease your activity until excess fluid has been eliminated. It will also be helpful to raise the head of your bed so you can sleep more easily. Keep a daily record of your weight. This will help your physician monitor your progress. Once extra water has been eliminated, light aerobic exercise daily -- such as walking -- will be helpful (unless your physician has told you to restrict activity for other reasons). Be sure to follow up with the physician as instructed. Contact the doctor at once if you worsen in any way. Edema, Peripheral You have swelling in your legs. This is called peripheral edema. It can be caused by "leaky capillaries," inflammation, disease of the leg veins, or excess salt and water in your body. Edema may be a sign of heart, kidney, or liver disease. A medical evaluation can determine if there is a serious underlying cause for your edema. Avoid prolonged standing. If you must sit for a long time, occasionally get up and walk around or elevate your legs. Support stockings can be helpful in limiting swelling. Often diuretic or water pills are used to remove excess salt and water from your body. Call the doctor or return if you develop increased swelling, pain, or redness, shortness of breath, chest pain, or any other significant change. Diabetes You have an abnormally high blood sugar. Uncontrolled high blood sugar leads to early heart disease, strokes, nerve damage, eye damage, and kidney damage. All diabetics should follow a diet designed to control the blood sugar. Overweight diabetics should exercise regularly and lose weight. If this is not sufficient to control the blood sugar, pills or insulin shots are necessary. Younger people who develop diabetes almost always require insulin daily. Home testing of blood sugars or urine sugar is required. Diabetic teaching is available to help you figure insulin doses and monitor the blood sugar. Call the physician if there is faintness, excess sleepiness, or very rapid breathing. If hypoglycemia (LOW blood sugar) develops, symptoms are shakiness, weakness, sweating, and confusion. In this case, you should eat or drink something with sugar at once. High Blood Pressure, Requiring Treatment Your blood pressure is high. This is called "hypertension." You need treatment of your blood pressure. Pre-hypertension/Hypertension: The patient has been informed that they have Hypertension based on a blood pressure reading in the emergency department. I recommend that the patient call the primary care provider listed on their discharge instructions or a physician of their choice this wee to arrange follow up for further evaluation of possible pre-hypertension or Hypertension. If left untreated, high blood pressure greatly increases your risk of heart attack and stroke. Please don't ignore this problem. If you have blood pressure medicine but aren't using it regularly, start taking it again. Some simple things you can do to help are: Get some aerobic exercise for at least 20 minutes on a daily basis. (See your doctor before beginning any new exercise program.) Eat a low-fat diet. Lose excess weight. Avoid salty foods and avoid adding salt to any of the foods you eat. Avoid diet pills, decongestants, "energizing" herbs, and other medicines that elevate blood pressure. There are many different medicines that treat blood pressure. If your medication causes unpleasant side effects, call your doctor. There are others you can try. Treating hypertension is a life-long investment in your health. Start the medications as prescribed tomorrow. Elevate your feet tonight to help get the swelling down. Follow-up with a primary care provider to manage your high blood pressure and diabetes. RETURN TO THE EMERGENCY ROOM IF ANY NEW OR WORSENING SYMPTOMS. Prescriptions: Furosemide [Lasix 20 mg Tablet] 20 mg PO QAM #30 tablet Lisinopril 20 mg PO DAILY #30 tablet Metformin HCl 500 mg PO BID #60 tablet I personally performed the services described in the documentation, reviewed and edited the documentation which was dictated to the scribe in my presence, and it accurately records my words and actions.
[2020-01-27 11:39] LABS: ABSOLUTE BASOPHILS # (AUTO) 0.1 10^3/uL (0.0-0.2); ABSOLUTE EOSINOPHILS # (AUTO) 0.1 10^3/uL (0.0-0.6); ABSOLUTE LYMPHOCYTES (AUTO) 1.5 10^3/uL (0.5-4.7); ABSOLUTE MONOCYTES (AUTO) 0.4 10^3/uL (0.1-1.4); ABSOLUTE NEUT (AUTO) 5.7 10^3/uL (1.7-8.2); BASOPHILS % (AUTO) 0.7 % (0-2); EOSINOPHILS % (AUTO) 0.7 % (0-6); HEMOGLOBIN 13.4 g/dL (13.5-17.0); LYMPHOCYTES % (AUTO) 19.6 % (13-45); MEAN CORPUSCULAR HEMOGLOBIN 28.8 pg (27.0-33.4); MEAN CORPUSCULAR HGB CONC 33.5 g/dL (32.0-36.0); MEAN CORPUSCULAR VOLUME 86 fl (80-97); MONOCYTES % (AUTO) 5.2 % (3-13); PLATELET COUNT 161 10^3/uL (150-450); RED BLOOD COUNT 4.65 10^6/uL (4.35-5.55); RED CELL DISTRIBUTION WIDTH 14.8 % (11.5-14.0); SEGMENTED NEUTROPHILS % (AUTO) 73.8 % (42-78); TOTAL CELLS COUNTED % (AUTO) 100 %; WHITE BLOOD COUNT 7.7 10^3/uL (4.0-10.5)
--- NOTE | 2020-01-27 11:55 | RADIOLOGY REPORT (SQ) ---
EXAM DESCRIPTION: CHEST SINGLE VIEW IMAGES COMPLETED DATE/TIME: 01/27/2020 11:39 am REASON FOR STUDY: Congestive heart failure COMPARISON: 01/04/2019 EXAM PARAMETERS: NUMBER OF VIEWS: One view. TECHNIQUE: Single frontal radiographic view of the chest acquired. RADIATION DOSE: NA LIMITATIONS: None. FINDINGS: LUNGS AND PLEURA: No opacities, masses or pneumothorax. No pleural effusion. MEDIASTINUM AND HILAR STRUCTURES: No masses. Contour normal. HEART AND VASCULAR STRUCTURES: Heart normal in size. Normal vasculature. BONES: No acute findings. HARDWARE: None in the chest. OTHER: No other significant finding. IMPRESSION: NO ACUTE RADIOGRAPHIC FINDING IN THE CHEST. TECHNICAL DOCUMENTATION: JOB ID: [id number] 2010 [employer]- All Rights Reserved Reading location - IP/workstation name: [email or web address]
[2020-01-27 12:04] LABS: ALBUMIN 3.8 g/dL (3.5-5.0); ALKALINE PHOSPHATASE 64 U/L (38-126); ANION GAP 11 (5-19); ASPARTATE AMINO TRANSFERASE 36 U/L (17-59); BILIRUBIN,DIRECT 0.2 mg/dL (0.0-0.4); BILIRUBIN,TOTAL 0.7 mg/dL (0.2-1.3); BLOOD UREA NITROGEN 22 mg/dL (7-20); CALCIUM 9.1 mg/dL (8.4-10.2); CARBON DIOXIDE 20 mmol/L (22-30); CHLORIDE 108 mmol/L (98-107); CREATINE KINASE 51 U/L (55-170); GLUCOSE 190 mg/dL (75-110); POTASSIUM 4.6 mmol/L (3.6-5.0); TOTAL PROTEIN 6.5 g/dL (6.3-8.2)
[2020-01-27 12:18] LABS: TROPONIN I 0.049 ng/mL
--- NOTE | 2020-01-27 12:23 | EKG REPORT ---
SEVERITY:- ABNORMAL ECG - SINUS TACHYCARDIA MULTIPLE VENTRICULAR PREMATURE COMPLEXES PROBABLE LEFT ATRIAL ABNORMALITY NONSPECIFIC INTRAVENTRICULAR CONDUCTION DELAY LEFT VENTRICULAR HYPERTROPHY CONSIDER OLD ANTERIOR MT : Confirmed by: Paul Hu MD 27-Jan-2020 12:22:36
[2020-01-27 13:06] LABS: APPEARANCE,URINE CLEAR; BILIRUBIN,URINE NEGATIVE (NEGATIVE); COLOR,URINE YELLOW; GLUCOSE, URINE 50 mg/dL (NEGATIVE); KETONES,URINE NEGATIVE (NEGATIVE); LEUKOCYTE ESTERASE,URINE NEGATIVE (NEGATIVE); NITRITE,URINE NEGATIVE (NEGATIVE); PROTEIN,URINE 30 mg/dL (NEGATIVE); URINE SPECIFIC GRAVITY 1.013; UROBILINOGEN,URINE NEGATIVE mg/dL (<2.0)
[2020-01-27] MEDS ORDERED: METFORMIN HCL 500 MG TABLET PO ONE (15:25)
[2020-01-27] MEDS ORDERED: LISINOPRIL 10 MG TABLET PO ONE (15:26)
[2020-01-27 15:40] VITALS: BP 157/108
== END 2020-01-27 15:51 | disposition home or self-care (01) ==
LOC: ER 10:07
DX: I11.0 Hypertensive heart disease with heart failure (principal); I50.9 Heart failure, unspecified; E11.9 Type 2 diabetes mellitus without complications; R06.02 Shortness of breath; R06.03 Acute respiratory distress; R00.0 Tachycardia, unspecified; E66.9 Obesity, unspecified; Z87.891 Personal history of nicotine dependence
CPT/HCPCS: 93005; 99285; 96374; 36415; 82550; 83735; 85025; 80053; 81001; 84484; 83880; 71045; 93010; J1940

== ENCOUNTER 2020-03-12 23:12 | Emergency (ER) | payer SELFPAY ==
--- NOTE | 2020-03-12 23:55 | ER Document Report ---
ED Medical Screen (RME) - General Chief Complaint: Shortness Of Breath Stated Complaint: SHORTNESS OF BREATH Time Seen by Provider: 03/12/20 23:38 Notes: Patient is a 64-year-old male with a history of congestive heart failure presents the emergency department with a chief complaint of shortness of breath. Patient ran out of his Lasix 2 weeks ago. Patient states that he tried to make an appointment with the [facility], but he cannot get one until March 17. Patient states that he has felt short of breath for the past about a week or so. Exam: Fine crackles noted in bilateral bases of lungs. I have greeted and performed a rapid initial assessment of this patient. A comprehensive ED assessment and evaluation of the patient, analysis of test results and completion of medical decision making process will be conducted by an additional ED providers. TRAVEL OUTSIDE OF THE [place] IN LAST 30 DAYS: No - Related Data Allergies/Adverse Reactions: No Known Allergies Allergy (Verified 12/31/18 16:24) Past Medical History - Past Medical History Cardiac Medical History: Reports: Hx Congestive Heart Failure, Hx Hypertension Denies: Hx Coronary Artery Disease, Hx DVT, Hx Heart Attack Pulmonary Medical History: Denies: Hx Asthma, Hx COPD Neurological Medical History: Denies: Hx Seizures Endocrine Medical History: Reports: Hx Diabetes Mellitus Type 2. Denies: Hx Diabetes Mellitus Type 1, Hx Hyperthyroidism, Hx Hypothyroidism Renal/ Medical History: Denies: Hx Peritoneal Dialysis GI Medical History: Denies: Hx Cirrhosis, Hx Crohn's Disease, Hx Hepatitis, Hx Ulcerative Colitis Musculoskeltal Medical History: Denies Hx Arthritis, Denies Hx Gout Skin Medical History: Denies Hx Eczema, Denies Hx Psoriasis Psychiatric Medical History: Reports: Hx Depression Infectious Medical History: Denies: Hx Hepatitis - Immunizations Hx Diphtheria, Pertussis, Tetanus Vaccination: - unknown Physical Exam - Vital signs Vitals: Temp Pulse Resp BP Pulse Ox 97.8 F 104 H 18 155/113 H 97 03/12/20 23:48 03/12/20 23:48 03/12/20 23:48 03/12/20 23:48 03/12/20 23:48 Course - Vital Signs Vital signs: Temp Pulse Resp BP Pulse Ox 97.8 F 104 H 18 155/113 H 97 03/12/20 23:48 03/12/20 23:48 03/12/20 23:48 03/12/20 23:48 03/12/20 23:48
--- NOTE | 2020-03-13 01:47 | RADIOLOGY REPORT (SQ) ---
EXAM DESCRIPTION: XR CHEST 1 VIEW COMPLETED DATE/TME: 03/13/2020 01:33 CLINICAL HISTORY: 64 years, Male, shortness of breath COMPARISON: 01/27/2020 chest NUMBER OF VIEWS: 1 TECHNIQUE: Portable chest LIMITATIONS: None. FINDINGS: Heart is enlarged but stable. Lungs are clear. No pneumothorax IMPRESSION: No acute cardiopulmonary process copyright 2010 [employer]- All Rights Reserved
[2020-03-13 02:27] LABS: ALBUMIN 4.4 g/dL (3.5-5.0); ALKALINE PHOSPHATASE 71 U/L (38-126); ANION GAP 14 (5-19); ASPARTATE AMINO TRANSFERASE 26 U/L (17-59); BILIRUBIN,DIRECT 0.1 mg/dL (0.0-0.4); BILIRUBIN,TOTAL 0.9 mg/dL (0.2-1.3); BLOOD UREA NITROGEN 19 mg/dL (7-20); CALCIUM 9.6 mg/dL (8.4-10.2); CARBON DIOXIDE 20 mmol/L (22-30); CHLORIDE 105 mmol/L (98-107); GLUCOSE 171 mg/dL (75-110); POTASSIUM 4.5 mmol/L (3.6-5.0); TOTAL PROTEIN 7.6 g/dL (6.3-8.2)
[2020-03-13 05:25] LABS: ABSOLUTE BASOPHILS # (AUTO) 0.1 10^3/uL (0.0-0.2); ABSOLUTE EOSINOPHILS # (AUTO) 0.1 10^3/uL (0.0-0.6); ABSOLUTE LYMPHOCYTES (AUTO) 2.5 10^3/uL (0.5-4.7); ABSOLUTE MONOCYTES (AUTO) 0.6 10^3/uL (0.1-1.4); ABSOLUTE NEUT (AUTO) 5.3 10^3/uL (1.7-8.2); BASOPHILS % (AUTO) 0.7 % (0-2); EOSINOPHILS % (AUTO) 1.3 % (0-6); HEMATOCRIT 45.6 % (37.9-51.0); HEMOGLOBIN 14.9 g/dL (13.5-17.0); LYMPHOCYTES % (AUTO) 29.6 % (13-45); MEAN CORPUSCULAR HGB CONC 32.7 g/dL (32.0-36.0); MEAN CORPUSCULAR VOLUME 86 fl (80-97); MONOCYTES % (AUTO) 6.6 % (3-13); PLATELET COUNT 146 10^3/uL (150-450); RED BLOOD COUNT 5.33 10^6/uL (4.35-5.55); RED CELL DISTRIBUTION WIDTH 16.4 % (11.5-14.0); SEGMENTED NEUTROPHILS % (AUTO) 61.8 % (42-78); TOTAL CELLS COUNTED % (AUTO) 100 %; WHITE BLOOD COUNT 8.6 10^3/uL (4.0-10.5)
[2020-03-13] MEDS ORDERED: FUROSEMIDE INJ/PF 40 MG/4 ML SDV IV ONE ×2 (06:55→09:02)
[2020-03-13] MEDS ORDERED: LISINOPRIL 10 MG TABLET PO ONE (09:01)
[2020-03-13] MEDS ORDERED: METFORMIN HCL 500 MG TABLET PO ONE (09:02)
--- NOTE | 2020-03-13 09:21 | EKG REPORT ---
SEVERITY:- ABNORMAL ECG - SINUS TACHYCARDIA PROBABLE LEFT ATRIAL ABNORMALITY NONSPECIFIC INTRAVENTRICULAR CONDUCTION DELAY CONSIDER ANTERIOR INFARCT : Confirmed by: Kalyan Bradley 13-Mar-2020 09:21:20
[2020-03-13] MEDS ORDERED: NITROGLYCERIN 0.4 MG/TAB 25 TAB/BOTTLE SL PRN (11:17)
--- NOTE | 2020-03-13 13:07 | RADIOLOGY REPORT (SQ) ---
EXAM DESCRIPTION: CTA CHEST IMAGES COMPLETED DATE/TIME: 03/13/2020 11:14 am REASON FOR STUDY: sobr/chest tightness/chf/elevated trop. COMPARISON: 12/31/2018. Chest radiograph same date TECHNIQUE: CT scan of the chest performed using helical scanning technique with dynamic intravenous contrast injection. Images reviewed with lung, soft tissue and bone windows. Reconstructed coronal and sagittal MPR images reviewed. Additional 3 dimensional post-processing performed to develop Maximal Intensity Projection images (AL P). All images stored on PACS. All CT scanners at this facility use dose modulation, iterative reconstruction, and/or weight based d osing when appropriate to reduce radiation dose to as low as reasonably achievable (ALARA). [facility]: Dose Right [facility]: CareDose [facility]: Dose Right [facility]: Teradose 4D [facility]: [employer] CONTRAST TYPE AND DOSE: contrast/concentration: Isovue 350.00 mmol/ml; Total Contrast Delivered: 80. 0 ml; Total Saline Delivered: 65.0 ml Contrast bolus optimized for the pulmonary arteries. Not diagnostic for the aorta. RENAL FUNCTION: GFR > 60. RADIATION DOSE: CT Rad equipment meets quality standard of care and radiation dose reduction techniq ues were employed. CTDIvol: 19.8 - 33.3 mGy. DLP: 1205 mGy-cm. . LIMITATIONS: None. FINDINGS: LUNGS AND PLEURA: Trachea has normal caliber and appearance. No bronchial wall thickening or bronchiectasis. No focal consolidation. No significant ground-glass attenuation. No suspicious pulmonary nodules. No pleural effusion or pneumothorax. AORTA AND GREAT VESSELS: No aneurysm. Contrast bolus not optimized for the aorta. HEART: Mild cardiomegaly. No pericardial effusion. No significant coronary artery calcifications. PULMONARY ARTERIES: No emboli visualized in the main pulmonary arteries or the segmental branches. HILAR AND MEDIASTINAL STRUCTURES: Mildly prominent mediastinal lymph nodes without gregorio adenopathy. No identified masses or abnormal nodes. HARDWARE: None in the chest. UPPER ABDOMEN: There is reflux of contrast into the hepatic veins. No significant abnormality in the upper abdomen. THYROID AND OTHER SOFT TISSUES: No masses. No adenopathy. BONES: Spondylosis and degenerative disc disease. 3D MIPS: Confirm above findings. OTHER: No other significant finding. IMPRESSION: 1. No pulmonary embolism. No acute pulmonary disease. 2. Mild cardiomegaly with reflux of contrast into the hepatic veins which can be seen with elevated r ight heart pressure/right heart failure. Echocardiogram may provide additional information. COMMENT: Quality ID # [id number]: Final reports with documentation of one or more dose reduction techniques (e.g., Automated exposure control, adjustment of the mA and/or kV according to patient size, use of iterative reconstruction technique) TECHNICAL DOCUMENTATION: JOB ID: [id number] 2010 [employer]- All Rights Reserved Reading location - IP/workstation name: [email or web address]
--- NOTE | 2020-03-13 14:19 | ER Document Report ---
Entered by NILSA THOMAS SCRIBE 03/13/20 0657 Acting as scribe for:MARY CHERY MD ED Respiratory Problem - General Chief Complaint: Shortness Of Breath Stated Complaint: SHORTNESS OF BREATH Time Seen by Provider: 03/12/20 23:38 Primary Care Provider: [facility]ELAS [Primary Care Provider] - Follow up as needed Mode of Arrival: Ambulatory Information source: Patient Notes: This 64 year old male patient with a history of HTN, CHF, and type 2 diabetes mellitus presents to the ED today with complaints of shortness of breath with associated chest pressure for the past x1 week. Patient was seen here on 01/26 with the same complaint and was prescribed Lasix, Metformin, and Lisinopril. Patient states that he has been out of those medications for approximately x3 weeks and that his appointment with the [facility] isn't until 03/17/2020 to get them refilled. He also reports bilateral lower extremity swelling, abdominal swelling, and orthopnea. Denies any other complaints. TRAVEL OUTSIDE OF THE [place] IN LAST 30 DAYS: No - Related Data Allergies/Adverse Reactions: No Known Allergies Allergy (Verified 12/31/18 16:24) Past Medical History - General Information source: Patient, [facility] Records - Social History Smoking Status: Never Smoker Cigarette use (# per day): No Chew tobacco use (# tins/day): No Smoking Education Provided: No Frequency of alcohol use: None Drug Abuse: None Family History: None - Patient's biologic family is unknown to him Patient has homicidal ideation: No - Past Medical History Cardiac Medical History: Reports: Hx Congestive Heart Failure, Hx Hypertension Endocrine Medical History: Reports: Hx Diabetes Mellitus Type 2 Psychiatric Medical History: Reports: Hx Depression - Immunizations Hx Diphtheria, Pertussis, Tetanus Vaccination: - unknown Review of Systems - Review of Systems Constitutional: No symptoms reported EENT: No symptoms reported Cardiovascular: See HPI, Chest pain - pressure, Orthopnea Respiratory: See HPI, Short of breath Gastrointestinal: See HPI, Abdomen distended - swelling Genitourinary: No symptoms reported Male Genitourinary: No symptoms reported Musculoskeletal: See HPI, Leg swelling Skin: No symptoms reported Hematologic/Lymphatic: No symptoms reported Neurological/Psychological: No symptoms reported -: Yes All other systems reviewed and negative Physical Exam - Vital signs Vitals: Temp Pulse Resp BP Pulse Ox 97.8 F 104 H 18 155/113 H 97 03/12/20 23:48 03/12/20 23:48 03/12/20 23:48 03/12/20 23:48 03/12/20 23:48 - General General appearance: Alert In distress: None - HEENT Head: Normocephalic, Atraumatic Eyes: Normal Pupils: PERRL - Respiratory Respiratory status: No respiratory distress Chest status: Nontender Breath sounds: Normal. No: Rales, Rhonchi, Wheezing Chest palpation: Normal - Cardiovascular Rhythm: Regular Heart sounds: Normal auscultation, S1 appreciated, S2 appreciated Murmur: No Friction rub: No Gallop: None auscultated - Abdominal Inspection: Obese Distension: Distended Bowel sounds: Normal Tenderness: Nontender - Abdomen soft Organomegaly: No organomegaly - Back Back: Normal, Nontender - Extremities General upper extremity: Normal inspection General lower extremity: Normal inspection. No: Edema - Neurological Neuro grossly intact: Yes Orientation: AAOx4 Rabia Coma Scale Eye Opening: Spontaneous Hugo Coma Scale Verbal: Oriented Rabia Coma Scale Motor: Obeys Commands Hugo Coma Scale Total: 15 - Psychological Associated symptoms: Normal affect, Normal mood - Skin Skin Temperature: Warm Skin Moisture: Dry Skin Color: Normal Course - Re-evaluation Re-evalutation: 03/13/20 14:06 Patient has diuresed and is feeling better at this time no chest tightness no shortness of breath. Patient is hemodynamically stable sats are within normal range. - Vital Signs Vital signs: Temp Pulse Resp BP Pulse Ox 98.3 F 104 H 16 127/99 H 99 03/13/20 07:43 03/12/20 23:48 03/13/20 13:21 03/13/20 13:21 03/13/20 13:21 03/13/20 14:06 Vital signs afebrile pulse ox 99% pulse 104. - Laboratory Result Diagrams: 03/13/20 05:02 03/13/20 01:42 Laboratory results interpreted by me: 03/13/20 03/13/20 03/13/20 01:42 01:42 05:02 RDW 16.4 H Plt Count 146 L Carbon Dioxide 20 L Glucose 171 H NT-Pro-B Natriuret Pep 3960 H 03/13/20 14:06 Lab results shows a BNP of 3960. And low level troponin leak at 0.04 and 0.05. Discussed patient with Dr. Becker a canvas cutter hand who states that he will follow patient up next week in his office. He asked that I add in addition to patient's medications to add Coreg 6.25 twice a day. - Diagnostic Test Radiology reviewed: Image reviewed, Reports reviewed Radiology results interpreted by me: 03/13/20 13:17 Chest X-Ray 03/12/20 23:52 IMPRESSION: No acute cardiopulmonary process copyright 2011 [employer]- All Rights Reserved Chest/Abdomen CTA 03/13/20 11:16 IMPRESSION: 1. No pulmonary embolism. No acute pulmonary disease. 2. Mild cardiomegaly with reflux of contrast into the hepatic veins which can be seen with elevated right heart pressure/right heart failure. Echocardiogram may provide additional information. 03/13/20 14:07 Chest x-ray shows no acute process. CT of chest and abdomen shows no pulmonary embolism there is mild cardiomegaly with reflux of the contrast and hepatic veins associated with right-sided heart failure. - EKG Interpretation by Me Additional EKG results interpreted by me: 03/13/20 14:10 Twelve-lead EKG today at 1129 shows normal sinus rhythm rate of 96 probable left atrial abnormality noted. ND interval within normal range QRS within normal ra nge and QT interval prolonged. Patient has a normal axis and no acute ST changes to suggest an acute STEMI. Repeat EKG done at 150 shows sinus tachycardia rate of 106 again probable left atrial abnormality nonspecific intraventricular conduction delay and consider an anterior infarct age undetermined. Normal axis normal ND interval QRS interval slightly prolonged with intraventricular conduction delay QT interval prolonged no acute ST elevation to suggest a STEMI. - Consults Dr. Schmidt, [employer] Time consulted: 14:05 Consulted provider: follow-up in office Discharge - Discharge Clinical Impression: CHF (congestive heart failure), Hypertension, Diabetes mellitus type 2 in obese Condition: Stable Disposition: HOME, SELF-CARE Prescriptions: Carvedilol [Coreg 6.25 mg Tablet] 6.25 mg PO Q12 #60 tablet Furosemide [Lasix 40 mg Tablet] 40 mg PO QAM #60 tablet Lisinopril 20 mg PO DAILY #60 tablet Metformin HCl 500 mg PO BID #60 tablet Referrals: [facility] [Primary Care Provider] - Follow up as needed WAI SCHMIDT MD [ACTIVE STAFF] - Follow up in 3-5 days (Call Dr Valdovinos ([employer]) to set up follow up appointment) I personally performed the services described in the documentation, reviewed and edited the documentation which was dictated to the scribe in my presence, and it accurately records my words and actions.
[2020-03-13 14:47] VITALS: BP 134/96
--- NOTE | 2020-03-14 09:06 | EKG REPORT ---
SEVERITY:- ABNORMAL ECG - SINUS RHYTHM PROBABLE LEFT ATRIAL ABNORMALITY NONSPECIFIC INTRAVENTRICULAR CONDUCTION DELAY : Confirmed by: Kalyan Bradley 14-Mar-2020 09:06:03
== END 2020-03-13 14:44 | disposition home or self-care (01) ==
LOC: ER 23:12
DX: I11.0 Hypertensive heart disease with heart failure (principal); I50.9 Heart failure, unspecified; E11.9 Type 2 diabetes mellitus without complications; R06.02 Shortness of breath; E66.9 Obesity, unspecified
CPT/HCPCS: 93005 ×2; 96376; 99285; 96374; 36415; 85025; 80053; 84484; 83880; 71045; 71275; 93010 ×2; J1940